=== PATIENT | male | born 1930 | race Caucasian/White ===

== ENCOUNTER 2017-02-12 13:28 | Emergency (ER) | payer MEDICARE, OTHER ==
[2017-02-12 13:33] VITALS: TEMP 98.3
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
--- NOTE | 2017-02-12 14:57 | XR ---
EXAMINATION TYPE: XR abdomen 2V DATE OF EXAM: 04/29/2015 COMPARISON: NONE HISTORY: Constipation TECHNIQUE: One view abdominal series FINDINGS: The osseous structures are intact. The bowel gas pattern is nonspecific. Diffuse osteopenia with hyp ertrophic changes noted. Correlate for diffuse idiopathic skeletal hyperostosis. Ankylosing spondylit is less likely. Subsegmental infiltrate at both lung bases. Arthropathy of the hips with evidence of vascular calcifications. IMPRESSION: 1. Nonspecific abdomen. 2. Bilateral lower lobe atelectasis or infiltrate. 3. Retained fecal debris throughout the colon.
[2017-02-12] MEDS ORDERED: MAGNESIUM CITRATE 296 ML BOTTLE PO ONE (17:34)
[2017-02-12 17:55] VITALS: BP 154/87; PULSE 78; RESP 18
== END 2017-02-12 17:55 | disposition home or self-care (01) ==
LOC: EC 13:28
DX: K59.00 Constipation, unspecified (principal); I11.0 Hypertensive heart disease with heart failure; I50.9 Heart failure, unspecified; N40.0 Benign prostatic hyperplasia without lower urinary tract symptoms; F32.9 Major depressive disorder, single episode, unspecified; Z85.828 Personal history of other malignant neoplasm of skin; Z79.899 Other long term (current) drug therapy; Z88.2 Allergy status to sulfonamides
CPT/HCPCS: 74020; 99284

== ENCOUNTER 2017-02-18 07:07 | Emergency (ER) | payer MEDICARE, OTHER ==
[2017-02-18 07:14] VITALS: PULSE 61
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
[2017-02-18 09:54] LABS: Particle Count 19780; RBC,Urine >182 /hpf (0-5); WBC,Urine >182 /hpf (0-5)
[2017-02-18 09:55] LABS: Appearance,Urine Bloody (Clear); UA Billing (MACRO vs. MICRO) MICRO
--- NOTE | 2017-02-18 10:04 | XR ---
Abdomen HISTORY: Constipation, unable to urinate Frontal view of the abdomen on 2 images correlated to prior dated 04/29/2015 Lung bases are clear. No pneumoperitoneum or bowel obstruction. Bones are stable. No pathologic calci fication. IMPRESSION: No acute abnormalities evident.
[2017-02-18] MEDS ORDERED: cefTRIAXone 1,000 MG VIAL (IM USE) IM STA (10:54)
[2017-02-18 11:36] LABS: Glucose,Whole Blood 106 mg/dL (75-99)
[2017-02-18 11:53] VITALS: BP 168/77; RESP 16; TEMP 97.2
== END 2017-02-18 12:04 | disposition home or self-care (01) ==
LOC: EC 07:07
DX: R33.9 Retention of urine, unspecified (principal); I11.0 Hypertensive heart disease with heart failure; I50.9 Heart failure, unspecified; Z85.828 Personal history of other malignant neoplasm of skin; Z86.73 Personal history of transient ischemic attack (TIA), and cerebral infarction without residual deficits; Z79.899 Other long term (current) drug therapy; Z88.2 Allergy status to sulfonamides
CPT/HCPCS: 36415; 81001; 74000; 99284; 51798; 51702; 96372; J0696

== ENCOUNTER 2017-02-19 06:04 | Emergency (ER) | payer MEDICARE, OTHER ==
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
[2017-02-19 07:17] LABS: Amorphous Sediment,Urine Rare /hpf; Appearance,Urine Turbid (Clear); Bacteria,Urine Occasional /hpf; Bilirubin,Urine Negative (Negative); Glucose,Urine (UA) Negative (Negative); Ketones,Urine Negative (Negative); Leukocyte Esterase,Urine Moderate (Negative); Mucus,Urine Few /hpf; Nitrite,Urine Negative (Negative); PH, Urine 5.5 (5.0-8.0); Particle Count 31464; Protein,Urine 1+ (Negative); RBC,Urine 181 /hpf (0-5); Specific Gravity,Urine 1.008 (1.001-1.035); UA Billing (MACRO vs. MICRO) MICRO; Urobilinogen,Urine <2.0 mg/dL (<2.0); WBC,Urine 43 /hpf (0-5)
[2017-02-19 07:35] VITALS: BP 143/67; PULSE 56; RESP 16; TEMP 97.8
== END 2017-02-19 07:34 | disposition home or self-care (01) ==
LOC: EC 06:04
DX: T83.091A Other mechanical complication of indwelling urethral catheter, initial encounter (principal); R33.9 Retention of urine, unspecified; N42.9 Disorder of prostate, unspecified; I11.0 Hypertensive heart disease with heart failure; I50.9 Heart failure, unspecified; Z86.73 Personal history of transient ischemic attack (TIA), and cerebral infarction without residual deficits; Z88.2 Allergy status to sulfonamides; Z79.899 Other long term (current) drug therapy
CPT/HCPCS: 81001; 87086; 99284

== ENCOUNTER 2017-02-21 04:37 | Emergency (ER) | payer MEDICARE, OTHER ==
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
[2017-02-21] MEDS ORDERED: GLYCERIN ADULT SUPPOSITORY 1 EACH RECTAL STA (06:45)
[2017-02-21] MEDS ORDERED: SENNOSIDES-DOCUSATE SODIUM 1 EACH TAB PO STA (06:45)
[2017-02-21] MEDS ORDERED: MAGNESIUM CITRATE 296 ML BOTTLE PO ONE (06:45)
--- NOTE | 2017-02-21 07:03 | XR ---
EXAM: XR Abdomen, 1 View CLINICAL HISTORY: Abdominal pain. TECHNIQUE: Frontal supine view of the abdomen/pelvis. Total images: 2. COMPARISON: Abdominal radiograph dated 02/18/17. FINDINGS: Limitations: The right side of the abdomen is incompletely imaged. Gastrointestinal tract: Nonobstructive bowel gas pattern. Bones/joints: Decreased osseous mineralization. Degenerative changes of the thoracolumbar spine with question of ankylosis. Soft tissues: Vascular calcifications. No unexpected calcification. IMPRESSION: Nonobstructive bowel gas pattern.
[2017-02-21 07:51] VITALS: TEMP 97
[2017-02-21 09:39] VITALS: BP 140/70; PULSE 72; RESP 16
== END 2017-02-21 09:37 | disposition home or self-care (01) ==
LOC: EC 04:37
DX: T83.89XA Other specified complication of genitourinary prosthetic devices, implants and grafts, initial encounter (principal); R10.9 Unspecified abdominal pain; I10 Essential (primary) hypertension; Z79.899 Other long term (current) drug therapy; Z88.2 Allergy status to sulfonamides; Z85.828 Personal history of other malignant neoplasm of skin; Y84.6 Urinary catheterization as the cause of abnormal reaction of the patient, or of later complication, without mention of misadventure at the time of the procedure
CPT/HCPCS: 51798; 74000; 99285

== ENCOUNTER 2017-02-22 06:29 | Emergency (ER) | payer MEDICARE, OTHER ==
[2017-02-22 06:34] VITALS: RESP 18
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
[2017-02-22 09:06] VITALS: BP 134/68; PULSE 57; TEMP 97.4
== END 2017-02-22 08:35 | disposition home or self-care (01) ==
LOC: EC 06:29
DX: T83.89XA Other specified complication of genitourinary prosthetic devices, implants and grafts, initial encounter (principal); I50.9 Heart failure, unspecified; I10 Essential (primary) hypertension; N42.9 Disorder of prostate, unspecified; Z79.899 Other long term (current) drug therapy; Z88.2 Allergy status to sulfonamides; Z87.440 Personal history of urinary (tract) infections; Y84.6 Urinary catheterization as the cause of abnormal reaction of the patient, or of later complication, without mention of misadventure at the time of the procedure
CPT/HCPCS: 51702; 51798; 99284

== ENCOUNTER 2017-03-02 14:06 | Observation (INO) | payer MEDICARE, OTHER ==
[2017-03-02] MEDS ORDERED: SODIUM CHLORIDE 0.9% 1,000 ML IV STA (14:17)
[2017-03-02] MEDS ORDERED: MORPHINE SULFATE 2 MG/ML SYRINGE IVP STA (14:17)
[2017-03-02] MEDS ORDERED: NITROGLYCERIN OINT 1 INCH/GM PACKET TOPICAL STA (14:17)
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
[2017-03-02 14:35] LABS: Basophils # (A) 0.1 k/uL (0-0.2); Basophils % (A) 1 %; CH 29.4; CHCM 33.7; Eosinophils # (A) 0.3 k/uL (0-0.7); Eosinophils % (A) 3 %; HCT 44.6 % (39.0-53.0); HDW 3.19; HGB 14.7 gm/dL (13.0-17.5); Luc # (Auto) 0.15; Luc % (Auto) 1; Lymphocytes # (A) 1.5 k/uL (1.0-4.8); Lymphocytes % (A) 12 %; MCH 28.9 pg (25.0-35.0); MCHC 32.9 g/dL (31.0-37.0); MCV 87.8 fL (80.0-100.0); Mean Platelet Volume 7.2; Monocytes # (A) 0.5 k/uL (0-1.0); Monocytes % (A) 4 %; Neutrophils # (A) 10.2 k/uL (1.3-7.7); Neutrophils % (A) 80 %; RBC 5.08 m/uL (4.30-5.90); RDW 14.2 % (11.5-15.5); WBC 12.7 k/uL (3.8-10.6); WBC (Perox) 12.13
[2017-03-02 14:44] LABS: INR 1.1 (<1.1); Partial Thromboplastin Time 29.4 sec (22.0-30.0); Prothrombin Time 10.7 sec (9.0-12.0)
[2017-03-02 14:49] LABS: ALT 27 U/L (21-72); AST 25 U/L (17-59); Alkaline Phosphatase 99 U/L (38-126); Anion Gap 10 mmol/L; Blood Urea Nitrogen 24 mg/dL (9-20); Calcium 9.1 mg/dL (8.4-10.2); Carbon Dioxide 26 mmol/L (22-30); Chloride 103 mmol/L (98-107); Glucose 109 mg/dL (74-99); Magnesium 2.2 mg/dL (1.6-2.3); Non-African American GFR(MDRD) >60 (>60 ml/min/1.73 sqM); Potassium 3.7 mmol/L (3.5-5.1); Sodium 139 mmol/L (137-145); Total Bilirubin 0.7 mg/dL (0.2-1.3); Total Protein 6.5 g/dL (6.3-8.2)
[2017-03-02 14:55] LABS: Creatine Kinase 28 U/L (55-170)
[2017-03-02 15:08] LABS: Creatine Kinase MB 0.7 ng/mL (0.0-2.4); Troponin I <0.012 ng/mL (0.000-0.034)
--- NOTE | 2017-03-02 15:48 | XR ---
EXAMINATION TYPE: XR chest 2V DATE OF EXAM: 03/02/2017 COMPARISON: Chest x-ray April 29, 2015 HISTORY: Chest pain TECHNIQUE: Frontal and lateral views of the chest are obtained. FINDINGS: Low lung volumes are present. There is patchy bibasilar atelectasis and/or infiltrate. Upp er lungs are clear without pneumothorax. No pleural effusion is present bilaterally. The cardiac silh ouette size is mildly enlarged with atherosclerotic thoracic aorta. The osseous structures are kamilah neralized. IMPRESSION: Low lung volumes and mild cardiomegaly with patchy bibasilar atelectasis and/or infiltra marcel.
[2017-03-02] MEDS ORDERED: MORPHINE SULFATE 2 MG/ML SYRINGE IVP PRN (18:00)
[2017-03-02] MEDS ORDERED: SODIUM CHLORIDE 0.9% 1,000 ML IV SCH (18:00)
[2017-03-02] MEDS ORDERED: NITROGLYCERIN SL TABS 0.4 MG TAB SUBLINGUAL PRN (18:00)
[2017-03-02] MEDS ORDERED: ALPRAZolam 0.25 MG TAB PO PRN (18:04)
[2017-03-02] MEDS ORDERED: POTASSIUM CHLORIDE ER 20 MEQ TAB.ER PO SCH (19:00)
[2017-03-02] MEDS ORDERED: LEVOFLOXACIN 500 MG TAB PO SCH (19:00)
[2017-03-02 20:08] LABS: Glucose,Whole Blood 136 mg/dL (75-99)
[2017-03-02 20:32] LABS: Creatine Kinase <20 U/L (55-170)
[2017-03-02 20:42] LABS: Creatine Kinase MB 0.7 ng/mL (0.0-2.4); Troponin I <0.012 ng/mL (0.000-0.034)
[2017-03-02] MEDS: CALCIUM POLYCARBOPHIL 625 MG TAB PO SCH (20:51)
[2017-03-02] MEDS: DOXAZOSIN 2 MG TAB PO SCH (20:51)
[2017-03-02] MEDS ORDERED: predniSONE 1 MG TAB PO SCH (21:00)
[2017-03-02] MEDS: ACETAMINOPHEN TAB 325 MG TAB PO PRN (22:04)
[2017-03-03] MEDS: ACETAMINOPHEN TAB 325 MG TAB PO PRN (01:23)
[2017-03-03 03:29] LABS: Cholesterol 173 mg/dL (<200); HDL Cholesterol 34 mg/dL (40-60); Triglycerides 143 mg/dL (<150)
[2017-03-03 03:59] LABS: Creatine Kinase MB 0.8 ng/mL (0.0-2.4); Troponin I 0.02 ng/mL (0.000-0.034)
[2017-03-03 06:35] LABS: Glucose,Whole Blood 94 mg/dL (75-99)
[2017-03-03 07:59] VITALS: RESP 16
[2017-03-03] MEDS ORDERED: ATORVASTATIN 20 MG TAB PO SCH (09:00)
[2017-03-03] MEDS ORDERED: ASPIRIN 325 MG TAB PO SCH (09:00)
[2017-03-03] MEDS ORDERED: FUROSEMIDE 40 MG TAB PO SCH (09:00)
[2017-03-03] MEDS ORDERED: SERTRALINE 50 MG TAB PO SCH (09:00)
[2017-03-03] MEDS ORDERED: DOCUSATE 100 MG CAP PO SCH (09:00)
[2017-03-03] MEDS: CALCIUM POLYCARBOPHIL 625 MG TAB PO SCH (10:07)
[2017-03-03] MEDS: DOXAZOSIN 2 MG TAB PO SCH (10:07)
[2017-03-03] MEDS ORDERED: ENOXAPARIN 100 MG/ML SYRINGE SQ STA (10:34)
[2017-03-03] MEDS ORDERED: LACTULOSE 20 GM/30 ML CUP PO ONE (10:35)
[2017-03-03 12:01] VITALS: BP 129/64; PULSE 73; TEMP 97.9
[2017-03-03] MEDS ORDERED: POLYETHYLENE GLYCOL 3350 17 GM POWD.PACK PO STA (14:21)
--- NOTE | 2017-03-03 15:54 | CONS ---
DATE OF CONSULTATION: Cristofer Hines is an 86-year-old elderly gentleman who sees Dr. Aguilar in the outpatient setting, has a history of hypertension, obstructive uropathy with enlarged prostate being considered for prostate operation. This gentleman also has some diastolic dysfunction. There was a question of TIA in the past and syncope and has had a loop recorder as well and the loop recorder did not reveal any significant issues upon recent interrogation. He had ejection fraction that runs in the range of 50% to 55% and has underlying mild to moderate stable aortic stenosis. He came into the hospital with what appears to be discomfort in the chest which he described as a sensation of a sharp feeling that came and went and lasted a few seconds every time and has a total duration of 20 minutes or so. There was no radiation. No associated nausea. He also felt some palpitations. The EMS people when they went to bring him thought there was some atrial fib but there is no documentation of this. His symptoms have resolved. He is resting comfortably. He denies any symptoms of chest pain at this time. His troponins are normal. The quality of the pain seems atypical. It is unclear if he had a previous stress test or not. The patient is not a very reliable historian. He has history of hypertension, hyperlipidemia, obstructive uropathy being considered for a prostate surgery, sleep apnea and uses a CPAP machine. At the time of my evaluation, he is resting comfortably. Denies any chest discomfort to suggest angina. Medications at home include: 1. Lasix 40 mg daily. 2. Nifedipine extended release 60 mg daily. 3. Potassium supplements. 4. He takes prednisone for reasons that are unclear 5. Xanax. 6. Cardura 4 mg daily. HE IS ALLERGIC TO SULFA AND BACTRIM. On examination, his blood pressure is 140/70, pulse rate is about 60 per minute. HEENT: Unremarkable. Fundus was not examined by me. Neck is supple. There is JVD of at least 1 cm, no carotid bruit. Heart exam reveals S1, S2 with an ejection systolic murmur and second heart sound is fairly well preserved. Lungs reveal bilateral diminished air entry over bases. ABDOMEN: Soft, nontender. Lower extremities reveal diminished pulses. The patient has a Looney catheter. EKG revealed sinus mechanism. No evidence of acute changes. Leftward axis, nonspecific ST abnormality. Laboratory data revealed unremarkable troponins. IMPRESSION: 1. Atypical chest pain. Does not seem to be angina. Quality of pain is atypical, but CAD in the patient at this age, cannot be totally excluded. His troponin levels are normal. EKG is unremarkable for acute changes. 2. History of benign prostatic hypertrophy, details unclear. May have prostate cancer but the patient is not able to confirm ( ). 3. Hypertension. 4. History of hyperlipidemia. 5. Remote history of atrial fibrillation or cerebrovascular accident. 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 RECOMMENDATIONS: I am recommending that we obtain a d-dimer and if the d-dimer is normal and he has no further symptoms upon ambulation, he can be discharged and have a stress test as an outpatient. I am also recommending that we supplement the potassium. I will give a single dose of Lovenox while we are waiting for the d-dimer to come back. Thank you very much for the consult.
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
[2017-03-04] MEDS ORDERED: HEPARIN SODIUM,PORCINE 5,000 UNIT/ML 1 ML VIAL SQ SCH (09:00)
== END 2017-03-03 16:15 | disposition home or self-care (01) ==
LOC: EC 14:06 → 3OBS 18:00
PROVIDERS: ADMIT Family Medicine; ATTEND Family Medicine
DX: R07.89 Other chest pain (principal); I25.10 Atherosclerotic heart disease of native coronary artery without angina pectoris; I50.9 Heart failure, unspecified; I11.0 Hypertensive heart disease with heart failure; E78.5 Hyperlipidemia, unspecified; I48.91 Unspecified atrial fibrillation; Z86.73 Personal history of transient ischemic attack (TIA), and cerebral infarction without residual deficits; Z79.899 Other long term (current) drug therapy; Z79.52 Long term (current) use of systemic steroids; Z88.2 Allergy status to sulfonamides; G47.30 Sleep apnea, unspecified; Z99.89 Dependence on other enabling machines and devices; Z87.01 Personal history of pneumonia (recurrent); Z85.828 Personal history of other malignant neoplasm of skin; F32.9 Major depressive disorder, single episode, unspecified; G47.33 Obstructive sleep apnea (adult) (pediatric); N40.1 Benign prostatic hyperplasia with lower urinary tract symptoms; R33.8 Other retention of urine; K59.00 Constipation, unspecified
CPT/HCPCS: 99285; 96372; 36415; 93005; 85379; 83880; 80061; 80053; 82550 ×2; 82553 ×2; 83735; 84484 ×2; 85025; 85610; 85730; 71020; G0378 ×2; J1650; J7512

== ENCOUNTER → 2017-10-08 | Outpatient (CLI) | payer MEDICARE, OTHER ==
--- NOTE | 2017-10-08 18:12 | CONS ---
CONSULTATION REASON FOR CONSULTATION: Sleep apnea. This is an 87-year-old male patient with known history of dementia and previous history of CVA back in 2016. He is coming in upon the request of his neurologist, Dr. Hall, to make sure his FAUZIA is also adequately treated. The patient was diagnosed and treated for obstructive sleep apnea through the sleep center at [facility]. His CPAP machine was offered to him last year and he has been very compliant. He does not have his CPAP machine with him today. I do not have any previous records on his earlier sleep studies and the exact diagnostic circumstances of his obstructive sleep apnea. At any rate, the patient is using a full-face mask and he has been compliant. No snoring while on the CPAP machine, and he has been averaging more than 6 hours of CPAP use every night, according to his daughter. He does not snore. He is going to bed around 10 p.m., waking up between 6 and 7 a.m. in the morning. For the most part, he is a poor historian related to his dementia. PAST MEDICAL HISTORY: 1. CVA. 2. Impaired vision. 3. Obstructive sleep apnea. 4. Dementia. 5. BPH. 6. Hypertension. 7. Anxiety. 8. Depression. SURGICAL HISTORY: TURP. MEDICATION LIST: Please see the attached medication list. SOCIAL HISTORY: No history of alcoholism. No history of IV drugs. He is a nonsmoker. He works for [employer]. FAMILY HISTORY: Negative for obstructive sleep apnea. REVIEW OF SYSTEMS: Twelve-point review of systems was done. All provided history is poor. There is underlying dementia. He does not drive. He walks with the help of a walker. He wakes up a few times in the middle of the night to urinate. No major hypersomnia or sleepiness during the day. He does not take any naps. PHYSICAL EXAMINATION: BP is 147/56, pulse 56, respirations 16, temperature 97.6, saturation 94% on room air. Neck size is 17 inches. Height is 5 feet 5 inches. Weight is 212. BMI 35.2. GENERAL APPEARANCE: Calm, comfortable. No acute distress. Head is atraumatic, normocephalic. Neck is short, supple. There is no goiter or neck masses. Mallampati class IV. LUNGS: Clear to auscultation. HEART: Regular rate and rhythm. Normal S1, S2. No S3, S4. No murmurs. ABDOMEN: Soft, nontender. No organomegaly. EXTREMITIES: No edema. No cyanosis or clubbing. NEUROLOGIC: Alert and oriented x3. No focal neurological deficits. PSYCHIATRIC: No anxiety or depression. IMPRESSION: 1. Obstructive sleep apnea, currently undergoing CPAP treatment. 2. Cerebrovascular accident. 3. Dementia. 4. Benign prostatic hypertrophy. 5. Hypertension. 6. Anxiety/depression. PLAN: 1. Will obtain records of his previous PSG and CPAP titration. 2. The patient's daughter will bring to me the CPAP machine for a compliancy check tomorrow in my office. 3. Continue the treatment, as the patient's treatment has been successful for now without any major hypersomnia or sleepiness. I will review all the documents and get back to the family if further adjustments are needed. MMROMULO / IJN: [id number] /
== END | disposition home or self-care (01) ==
LOC: SLEEP 16:21
PROVIDERS: ATTEND Internal Medicine Critical Care Medicine
DX: G47.33 Obstructive sleep apnea (adult) (pediatric) (principal); N40.0 Benign prostatic hyperplasia without lower urinary tract symptoms; I63.9 Cerebral infarction, unspecified; F03.90 Unspecified dementia, unspecified severity, without behavioral disturbance, psychotic disturbance, mood disturbance, and anxiety; I10 Essential (primary) hypertension; F32.9 Major depressive disorder, single episode, unspecified; F41.9 Anxiety disorder, unspecified; Z99.89 Dependence on other enabling machines and devices
CPT/HCPCS: 99211

== ENCOUNTER → 2017-10-08 | Outpatient (CLI) | payer MEDICARE, OTHER ==
--- NOTE | 2017-10-08 18:32 | XR ---
EXAMINATION TYPE: XR lumbosacral spine min 4V DATE OF EXAM: 10/08/2017 COMPARISON: NONE HISTORY: Low back pain TECHNIQUE: 5 views FINDINGS: Lumbar vertebra have fairly normal alignment. There is extensive hypertrophic bridging oste ophyte formation throughout the lumbar spine. There is 10% anterior wedging of L1 vertebra that appea rs old. Abdominal aorta is atheromatous. Posterior elements are intact. Sacroiliac joints are intact. IMPRESSION: Multilevel spondylosis. No acute abnormality. No significant disc space narrowing.
== END | disposition home or self-care (01) ==
LOC: RADXRMAIN 17:42
PROVIDERS: ATTEND Psychiatry & Neurology Neurology
DX: M47.817 Spondylosis without myelopathy or radiculopathy, lumbosacral region (principal); R41.3 Other amnesia
CPT/HCPCS: 72110; 82306; 82607; 82747; 83036; 84443; 85652; 86618; 86780; 99204; 99211

== ENCOUNTER → 2017-11-16 | Outpatient (CLI) | payer MEDICARE, OTHER ==
--- NOTE | 2017-11-16 13:22 | CT ---
EXAMINATION TYPE: CT brain wo con DATE OF EXAM: 11/16/2017 HISTORY: Hydrocephalus Progress study. CT DLP: 1013 mGycm. Automated Exposure Control for Dose Reduction was Utilized. TECHNIQUE: CT scan of the head is performed without contrast. COMPARISON: CT scan of brain March 07, 2015 and older study February 28, 2015 FINDINGS: There is no acute intracranial hemorrhage or midline shift identified. There is diffuse v entricular and sulcal prominence consistent with diffuse age-related cerebral atrophy. There is low- attenuation in the periventricular white matter consistent with chronic small vessel ischemic change. Area of encephalomalacia inferior medial right occipital lobe is now present. Was more acute/subacut e on prior studies. The globes are intact and the visualized sinuses are clear. IMPRESSION: No acute intracranial hemorrhage or midline shift. There is fairly moderate diffuse age -related cerebral atrophy and chronic small vessel ischemic change identified with progression from [address] noted. No donya hydrocephalus in my opinion. Old infarct inferior medial right occipital lobe is now present.
== END | disposition home or self-care (01) ==
LOC: RADCTMAIN 11:00
PROVIDERS: ATTEND Psychiatry & Neurology Neurology
DX: G31.9 Degenerative disease of nervous system, unspecified (principal); I67.82 Cerebral ischemia; Z86.73 Personal history of transient ischemic attack (TIA), and cerebral infarction without residual deficits
CPT/HCPCS: 70450

== ENCOUNTER → 2017-11-26 | Outpatient (CLI) | payer MEDICARE, OTHER ==
--- NOTE | 2017-11-26 16:18 | PN ---
PROGRESS NOTE I was able to re-evaluate this patient in regard to obstructive sleep apnea. I saw him in consultation September 2017. Today comes in with his BiPAP machine. The patient has a ResMed VPAP RO machine which is set at a fixed pressure of 12 over 8. On today's evaluation. I noted the patient is having increased leaks around the mask. The patient is looking for another alternative mask. He uses an Gosia View full-face mask. Based on the compliance data, the patient has been able to achieve adequate number of hours and he is compliant and he is benefiting from the treatment. As such, I fitted him with an AirFit P F20, full face mask. He has no other complaints otherwise. He has appropriate setup machine and tubing. The mask will be changed however. He seems to be committed to the treatment knowing that he benefits from the treatment. He goes to bed around 10:00 pm, wakes up 7:00 am in the morning. He wakes up rather refreshed as long as he is able to tolerate the treatment. I am hoping that we can increase the amount of air leaks to improve tolerability and compliance. PHYSICAL EXAMINATION: BP is 112/57, pulse 64, respirations 16, temp 97.4, saturation 97% on room air. Weight is 311, height is 5 feet 5 inches. General appearance, calm and comfortable. Head is atraumatic, normocephalic. Neck is short, supple. Crowding posterior oropharynx. There is no goiter or neck masses. LUNGS: Clear to auscultation. HEART: Sounds are regular rate and rhythm. Normal S1, S2. No S3. No murmurs. ABDOMEN: Soft, nontender. No organomegaly. EXTREMITIES: No edema. No cyanosis or clubbing. NEUROLOGIC: He has got some tremors. He has got also some dementia underlying. PSYCHIATRIC: No anxiety or depression. SKIN: Negative for any wounds or ulceration. IMPRESSION: 1. Obstructive sleep apnea. Patient is currently on BiPAP at a pressure of 12/8. He has a VPAP RO machine. 2. Increased leak around the mask. 3. Cerebrovascular accident. 4. Dementia. 5. Benign prostatic hypertrophy. 6. Hypertension. 7. Anxiety. 8. Depression. PLAN: 1. Keep the same pressure setting. 2. Provide the patient AirFit F20 full face mask. 3. See me back in 6 weeks time for a compliancy check. Hopefully this will improve the leaks and improve his overall compliancy and successful treatment in general. 4. We will continue to follow. TANNER / SHONAN: [id number] /
== END | disposition home or self-care (01) ==
LOC: SLEEP 13:28
PROVIDERS: ATTEND Internal Medicine Critical Care Medicine
DX: G47.33 Obstructive sleep apnea (adult) (pediatric) (principal); I63.9 Cerebral infarction, unspecified; F03.90 Unspecified dementia, unspecified severity, without behavioral disturbance, psychotic disturbance, mood disturbance, and anxiety; N40.0 Benign prostatic hyperplasia without lower urinary tract symptoms; I10 Essential (primary) hypertension; F41.9 Anxiety disorder, unspecified; F32.9 Major depressive disorder, single episode, unspecified; Z99.89 Dependence on other enabling machines and devices

== ENCOUNTER 2017-12-03 00:43 | Emergency (ER) | payer MEDICARE, OTHER ==
[2017-12-03 01:24] VITALS: RESP 18
[2017-12-03] MEDS ORDERED: LIDOCAINE URO-JET JELLY 2% 5 ML KIT URETHRAL ONE (01:24)
--- NOTE | 2017-12-03 02:30 | ED ---
General Adult HPI - General Chief complaint: Urogenital Stated complaint: urine retention Time Seen by Provider: 12/03/17 00:54 Source: patient, EMS Mode of arrival: EMS Limitations: no limitations - History of Present Illness Initial comments: 87 years old male with his daughter main complaint is not able to void he had a TURP done numb back in February 2017 and he has been voiding well since then he denies any history of prostate cancer no radiation or chemo was his primary care for him on Flomax. But initially that was his complaint but now we sent he has a shortness of breath denies any chest pain is on oxygen is helping him he denies any pleuritic chest pain, no fever no chills no symptoms of TIA or CVA - Related Data Home Medications Medication Instructions Recorded Confirmed Furosemide [Lasix] 40 mg PO QAM 02/28/15 03/02/17 NIFEdipine [NIFEdipine ER] 60 mg PO QAM 02/28/15 03/02/17 Nitroglycerin Sl Tabs [Nitrostat] 0.4 mg SUBLINGUAL Q5M PRN 04/01/15 03/02/17 Potassium Chloride [Klor-Con 20] 20 meq PO PC-SUPPER 04/01/15 03/02/17 ALPRAZolam [Xanax] 0.25 mg PO QAM PRN 03/01/17 03/02/17 Fiber Tab 1 tab PO BID 03/01/17 03/02/17 Sertraline [Zoloft] 50 mg PO QAM 03/01/17 03/02/17 predniSONE 6 mg PO HS 03/01/17 03/02/17 Docusate [Colace] 100 mg PO DAILY 03/02/17 03/02/17 Previous Rx's Medication Instructions Recorded Doxazosin [Cardura] 2 mg PO BID #60 tab 04/06/15 Aspirin EC [Ecotrin Low Dose] 81 mg PO DAILY #30 tablet. 03/03/17 Atorvastatin [Lipitor] 10 mg PO DAILY #30 tab 03/03/17 Levofloxacin [Levaquin] 500 mg PO DAILY #7 tab 03/03/17 Polyethylene Glycol 3350 [Miralax] 17 gm PO DAILY PRN #10 packet 03/03/17 Allergies Allergy/AdvReac Type Severity Reaction Status Date / Time sulfamethoxazole AdvReac BLOOD Verified 12/03/17 01:21 [From Bactrim] SUGAR DROPPED trimethoprim [From Bactrim] AdvReac BLOOD Verified 12/03/17 01:21 SUGAR DROPPED Review of Systems ROS Statement: Those systems with pertinent positive or pertinent negative responses have been documented in the HPI. ROS Other: All systems not noted in ROS Statement are negative. Past Medical History Past Medical History: Cancer, Heart Failure, CVA/TIA, Hyperlipidemia, Hypertension, Pneumonia, Sleep Apnea/CPAP/BIPAP Additional Past Medical History / Comment(s): HYPOGLYCEMIA. skin cancer removed off penis. URINARY RETENTION/HALL CATH. BPH. History of Any Multi-Drug Resistant Organisms: None Reported Past Surgical History: No Surgical Hx Reported Additional Past Surgical History / Comment(s): 04/05/15 LOOP recorder placed, 2014 EGD, colonoscopy 2005 removed one polyp and is scheduled every 4 years, skin cancer removed. Past Anesthesia/Blood Transfusion Reactions: No Reported Reaction Past Psychological History: Depression Smoking Status: Never smoker Past Alcohol Use History: None Reported Past Drug Use History: None Reported - Past Family History Father Family Medical History: Cancer Additional Family Medical History / Comment(s): colon cancer and at age 92 Mother Family Medical History: CVA/TIA, Dementia, Diabetes Mellitus Additional Family Medical History / Comment(s): from complications of CVA at age 76 Brother(s) Family Medical History: Prostate Disorder Additional Family Medical History / Comment(s): 2 brothers had prostate cancer, 1 brother with colon cancer Sister(s) Family Medical History: Cancer Additional Family Medical History / Comment(s): He has 3 sisters. No major medical problems. Daughter(s) Family Medical History: Cancer Additional Family Medical History / Comment(s): COLON General Exam - General Exam Comments Initial Comments: General: The patient is awake and alert, in no distress, and does not appear acutely ill. Skin: Skin is warm and dry and no rashes or lesions are noted. Eye: Pupils are equal, round and reactive to light, extra-ocular movements are intact; there is normal conjunctiva bilaterally. Ears, nose, mouth and throat: There are moist mucous membranes and no oral lesions. Neck: The neck is supple, there is no tenderness or JVD. Cardiovascular: There is a regular rate and rhythm. No murmur, rub or gallop is appreciated. Respiratory: To auscultation bilateral, no wheezing no rhonchi no distress respiratory ricks noticed Gastrointestinal: Soft, non-distended, non-tender abdomen without masses or organomegaly noted. There is no rebound or guarding present. Bowel sounds are unremarkable. Back: There is no tenderness to palpation in the midline. There is no obvious deformity. Musculoskeletal: Normal ROM, no tenderness, There is no pedal edema. There is no calf tenderness or swelling. No cords were appreciated. Neurological: CN II-XII intact, Cranial nerves III through XII are intact. There are no obvious motor or sensory deficits. Coordination appears grossly intact. Speech is normal. Psychiatric: Cooperative, appropriate mood & affect, normal judgment. Limitations: no limitations Course Vital Signs 12/03/17 12/03/17 01:21 03:52 Temperature 97.9 F 97.9 F Pulse Rate 62 60 Respiratory 18 18 Rate Blood Pressure 152/71 162/72 O2 Sat by Pulse 96 96 Oximetry The patient came in with the urinary retention he complained about shortness of breath or cardiopulmonary workup was done, chest x-ray is fine no congestive heart failure his O2 sat room air stayed pretty stable his white count is normal his EKG was unremarkable troponin CBC and compressive metabolic panel are within normal range EKG Findings - EKG Comments: EKG Findings:: EKG is normal sinus rhythm ventricular rate is 64 TX interval is 198 QRS duration is 90 QT/QTc is 440/427, noticed T-wave inversion in lead [address] elevation or ST depression noticed Medical Decision Making - Lab Data Result diagrams: 12/03/17 03:10 12/03/17 03:10 Lab Results 12/03/17 12/03/17 12/03/17 Range/Units 03:10 03:10 03:10 WBC 11.9 H (3.8-10.6) k/uL RBC 5.45 (4.30-5.90) m/uL Hgb 15.6 (13.0-17.5) gm/dL Hct 46.8 (39.0-53.0) % MCV 85.9 (80.0-100.0) fL MCH 28.5 (25.0-35.0) pg MCHC 33.2 (31.0-37.0) g/dL RDW 14.2 (11.5-15.5) % Plt Count 203 (150-450) k/uL Neutrophils % 87 % Lymphocytes % 8 % Monocytes % 3 % Eosinophils % 1 % Basophils % 0 % Neutrophils # 10.4 H (1.3-7.7) k/uL Lymphocytes # 1.0 (1.0-4.8) k/uL Monocytes # 0.4 (0-1.0) k/uL Eosinophils # 0.1 (0-0.7) k/uL Basophils # 0.0 (0-0.2) k/uL PT (9.0-12.0) sec INR (<1.2) APTT (22.0-30.0) sec Sodium (137-145) mmol/L Potassium (3.5-5.1) mmol/L Chloride (98-107) mmol/L Carbon Dioxide (22-30) mmol/L Anion Gap mmol/L BUN (9-20) mg/dL Creatinine (0.66-1.25) mg/dL Est GFR (CKD-EPI)AfAm (>60 ml/min/1.73 sqM) Est GFR (CKD-EPI)NonAf (>60 ml/min/1.73 sqM) Glucose (74-99) mg/dL Calcium (8.4-10.2) mg/dL Total Bilirubin (0.2-1.3) mg/dL AST (17-59) U/L ALT (21-72) U/L Alkaline Phosphatase (38-126) U/L Total Creatine Kinase 37 L (55-170) U/L CK-MB (CK-2) 1.2 (0.0-2.4) ng/mL CK-MB (CK-2) Rel Index 3.2 Troponin I 0.017 (0.000-0.034) ng/mL Total Protein (6.3-8.2) g/dL Albumin (3.5-5.0) g/dL Urine Color Colorless Urine Appearance Clear (Clear) Urine pH 7.0 (5.0-8.0) Ur Specific Jackson 1.005 (1.001-1.035) Urine Protein Negative (Negative) Urine Glucose (UA) Negative (Negative) Urine Ketones Negative (Negative) Urine Blood Negative (Negative) Urine Nitrite Negative (Negative) Urine Bilirubin Negative (Negative) Urine Urobilinogen <2.0 (<2.0) mg/dL Ur Leukocyte Esterase Small H (Negative) Urine RBC 2 (0-5) /hpf Urine WBC 5 (0-5) /hpf Ur Squamous Epith Cells <1 (0-4) /hpf 12/03/17 12/03/17 Range/Units 03:10 03:10 WBC (3.8-10.6) k/uL RBC (4.30-5.90) m/uL Hgb (13.0-17.5) gm/dL Hct (39.0-53.0) % MCV (80.0-100.0) fL MCH (25.0-35.0) pg MCHC (31.0-37.0) g/dL RDW (11.5-15.5) % Plt Count (150-450) k/uL Neutrophils % % Lymphocytes % % Monocytes % % Eosinophils % % Basophils % % Neutrophils # (1.3-7.7) k/uL Lymphocytes # (1.0-4.8) k/uL Monocytes # (0-1.0) k/uL Eosinophils # (0-0.7) k/uL Basophils # (0-0.2) k/uL PT 9.8 (9.0-12.0) sec INR 1.0 (<1.2) APTT 27.5 (22.0-30.0) sec Sodium 141 (137-145) mmol/L Potassium 4.3 (3.5-5.1) mmol/L Chloride 100 (98-107) mmol/L Carbon Dioxide 31 H (22-30) mmol/L Anion Gap 10 mmol/L BUN 25 H (9-20) mg/dL Creatinine 0.80 (0.66-1.25) mg/dL Est GFR (CKD-EPI)AfAm >90 (>60 ml/min/1.73 sqM) Est GFR (CKD-EPI)NonAf 80 (>60 ml/min/1.73 sqM) Glucose 124 H (74-99) mg/dL Calcium 9.8 (8.4-10.2) mg/dL Total Bilirubin 0.7 (0.2-1.3) mg/dL AST 24 (17-59) U/L ALT 28 (21-72) U/L Alkaline Phosphatase 104 (38-126) U/L Total Creatine Kinase (55-170) U/L CK-MB (CK-2) (0.0-2.4) ng/mL CK-MB (CK-2) Rel Index Troponin I (0.000-0.034) ng/mL Total Protein 6.9 (6.3-8.2) g/dL Albumin 4.2 (3.5-5.0) g/dL Urine Color Urine Appearance (Clear) Urine pH (5.0-8.0) Ur Specific Jackson (1.001-1.035) Urine Protein (Negative) Urine Glucose (UA) (Negative) Urine Ketones (Negative) Urine Blood (Negative) Urine Nitrite (Negative) Urine Bilirubin (Negative) Urine Urobilinogen (<2.0) mg/dL Ur Leukocyte Esterase (Negative) Urine RBC (0-5) /hpf Urine WBC (0-5) /hpf Ur Squamous Epith Cells (0-4) /hpf Disposition Clinical Impression: Urine retention, Shortness of breath Disposition: HOME SELF-CARE Condition: Good Instructions: Urinary Retention in Men (ED) Additional Instructions: His daughter stated that he sees his urologist but he frequently, he will follow up with his urologist, daughter is quite familiar with that Referrals: Peyman Martins DO [Primary Care Provider] - 1-2 days
[2017-12-03 03:31] LABS: Basophils % (A) 0 %; Eosinophils # (A) 0.1 k/uL (0-0.7); Eosinophils % (A) 1 %; HCT 46.8 % (39.0-53.0); HGB 15.6 gm/dL (13.0-17.5); Lymphocytes % (A) 8 %; MCH 28.5 pg (25.0-35.0); MCHC 33.2 g/dL (31.0-37.0); MCV 85.9 fL (80.0-100.0); Mean Platelet Volume 7.5; Monocytes # (A) 0.4 k/uL (0-1.0); Monocytes % (A) 3 %; Neutrophils # (A) 10.4 k/uL (1.3-7.7); Neutrophils % (A) 87 %; Platelet Count 203 k/uL (150-450); RBC 5.45 m/uL (4.30-5.90); RDW 14.2 % (11.5-15.5); WBC 11.9 k/uL (3.8-10.6)
[2017-12-03 03:44] LABS: ALT 28 U/L (21-72); AST 24 U/L (17-59); Albumin 4.2 g/dL (3.5-5.0); Alkaline Phosphatase 104 U/L (38-126); Anion Gap 10 mmol/L; Blood Urea Nitrogen 25 mg/dL (9-20); Calcium 9.8 mg/dL (8.4-10.2); Carbon Dioxide 31 mmol/L (22-30); Chloride 100 mmol/L (98-107); Glucose 124 mg/dL (74-99); Potassium 4.3 mmol/L (3.5-5.1); Sodium 141 mmol/L (137-145); Total Bilirubin 0.7 mg/dL (0.2-1.3); Total Protein 6.9 g/dL (6.3-8.2)
[2017-12-03 03:50] LABS: Partial Thromboplastin Time 27.5 sec (22.0-30.0); Prothrombin Time 9.8 sec (9.0-12.0)
[2017-12-03 03:52] LABS: Appearance,Urine Clear (Clear); Bilirubin,Urine Negative (Negative); Blood,Urine Negative (Negative); Color,Urine Colorless; Glucose,Urine (UA) Negative (Negative); Ketones,Urine Negative (Negative); Leukocyte Esterase,Urine Small (Negative); Nitrite,Urine Negative (Negative); Protein,Urine Negative (Negative); RBC,Urine 2 /hpf (0-5); Specific Gravity,Urine 1.005 (1.001-1.035); Squamous Epithelial Cell,Urine <1 /hpf (0-4); Urobilinogen,Urine <2.0 mg/dL (<2.0); WBC,Urine 5 /hpf (0-5)
[2017-12-03 03:56] LABS: Creatine Kinase MB 1.2 ng/mL (0.0-2.4); Troponin I 0.017 ng/mL (0.000-0.034)
--- NOTE | 2017-12-03 04:36 | XR ---
EXAM: XR Chest, 2 Views CLINICAL HISTORY: ITS.REASON XR Reason: difficulty breathing TECHNIQUE: Frontal and lateral views of the chest. COMPARISON: 03/02/2017 FINDINGS: Lungs: Low lung volume. Flattening of the diaphragm and component of chronic interstitial thickening. No airspace consolidation. Mild basilar atelectasis. Pleural space: Unremarkable. No pneumothorax. Heart: Borderline cardiomegaly. Mediastinum: Unremarkable. Bones/joints: Degenerative changes to the acromioclavicular joints. Vasculature: Atherosclerosis. Tubes, lines and devices: Loop recorder noted overlying the left chest. IMPRESSION: 1. No acute radiographic findings. 2. COPD. 3. Stable borderline cardiomegaly.
[2017-12-03 05:15] VITALS: BP 154/70; PULSE 63; TEMP 97.8
== END 2017-12-03 05:14 | disposition home or self-care (01) ==
LOC: EC 00:43
DX: R33.9 Retention of urine, unspecified (principal); R06.02 Shortness of breath; I11.0 Hypertensive heart disease with heart failure; I50.9 Heart failure, unspecified; G47.30 Sleep apnea, unspecified; Z99.89 Dependence on other enabling machines and devices; Z85.828 Personal history of other malignant neoplasm of skin; Z79.52 Long term (current) use of systemic steroids; Z79.899 Other long term (current) drug therapy
CPT/HCPCS: 36415; 51702; 51798; 71046; 80053; 81001; 82550; 82553; 84484; 85025; 85610; 85730; 93005; 99284

== ENCOUNTER 2017-12-03 07:25 | Emergency (ER) | payer MEDICARE, OTHER ==
[2017-12-03 07:31] VITALS: RESP 18
[2017-12-03] MEDS ORDERED: RX INFO: IV CONTRAST WAS GIVEN 1 EACH MISC MISCELLANE PRN (08:29)
[2017-12-03] MEDS ORDERED: SODIUM CHLORIDE 0.9% 1,000 ML IV ONE (08:29)
[2017-12-03] MEDS ORDERED: PHENAZOPYRIDINE 200 MG TAB PO STA (08:35)
--- NOTE | 2017-12-03 08:50 | ED ---
Male Urogenital HPI - General Chief complaint: Urogenital Stated complaint: Catheter clogged Time Seen by Provider: 12/03/17 07:31 Source: patient, family, RN notes reviewed Mode of arrival: wheelchair Limitations: no limitations - History of Present Illness Initial comments: 87-year-old male presents emergency Department chief complaint of fall and catheter not draining. Patient complains of pain over his bladder. Patient states that he is in here just a few hours ago because he cannot urinate and states that he had a Hall catheter placed and states it was draining felt well. Patient states that symptoms are returning and worsening. Patient states that he noticed that there was not any urine in the bag. Patient states that he had a TURP procedure by Dr. geronimo in February 2017. Patient states he had a Hall prior to this and after for several weeks. Daughter did add that he had to have several different Hall secondary to blood clots. Patient denies any nausea vomiting diarrhea constipation. Denies any known fevers or chills. - Related Data Home Medications Medication Instructions Recorded Confirmed Furosemide [Lasix] 40 mg PO QAM 02/28/15 03/02/17 NIFEdipine [NIFEdipine ER] 60 mg PO QAM 02/28/15 03/02/17 Nitroglycerin Sl Tabs [Nitrostat] 0.4 mg SUBLINGUAL Q5M PRN 04/01/15 03/02/17 Potassium Chloride [Klor-Con 20] 20 meq PO PC-SUPPER 04/01/15 03/02/17 ALPRAZolam [Xanax] 0.25 mg PO QAM PRN 03/01/17 03/02/17 Fiber Tab 1 tab PO BID 03/01/17 03/02/17 Sertraline [Zoloft] 50 mg PO QAM 03/01/17 03/02/17 predniSONE 6 mg PO HS 03/01/17 03/02/17 Docusate [Colace] 100 mg PO DAILY 03/02/17 03/02/17 Previous Rx's Medication Instructions Recorded Doxazosin [Cardura] 2 mg PO BID #60 tab 04/06/15 Aspirin EC [Ecotrin Low Dose] 81 mg PO DAILY #30 tablet. 03/03/17 Atorvastatin [Lipitor] 10 mg PO DAILY #30 tab 03/03/17 Levofloxacin [Levaquin] 500 mg PO DAILY #7 tab 03/03/17 Polyethylene Glycol 3350 [Miralax] 17 gm PO DAILY PRN #10 packet 03/03/17 Hydrocodone/Acetaminophen [[place] 1 tab PO Q6HR PRN #15 tab 12/03/17 5-325] Allergies Allergy/AdvReac Type Severity Reaction Status Date / Time sulfamethoxazole AdvReac BLOOD Verified 12/03/17 09:26 [From Bactrim] SUGAR DROPPED trimethoprim [From Bactrim] AdvReac BLOOD Verified 12/03/17 09:26 SUGAR DROPPED Review of Systems ROS Statement: Those systems with pertinent positive or pertinent negative responses have been documented in the HPI. ROS Other: All systems not noted in ROS Statement are negative. Past Medical History Past Medical History: Cancer, Heart Failure, CVA/TIA, Hyperlipidemia, Hypertension, Pneumonia, Sleep Apnea/CPAP/BIPAP Additional Past Medical History / Comment(s): HYPOGLYCEMIA. skin cancer removed off penis. URINARY RETENTION/HALL CATH. BPH. History of Any Multi-Drug Resistant Organisms: None Reported Past Surgical History: No Surgical Hx Reported Additional Past Surgical History / Comment(s): 04/05/15 LOOP recorder placed, 2014 EGD, colonoscopy 2005 removed one polyp and is scheduled every 4 years, skin cancer removed. Past Anesthesia/Blood Transfusion Reactions: No Reported Reaction Past Psychological History: Depression Smoking Status: Never smoker Past Alcohol Use History: None Reported Past Drug Use History: None Reported - Past Family History Father Family Medical History: Cancer Additional Family Medical History / Comment(s): colon cancer and at age 92 Mother Family Medical History: CVA/TIA, Dementia, Diabetes Mellitus Additional Family Medical History / Comment(s): from complications of CVA at age 76 Brother(s) Family Medical History: Prostate Disorder Additional Family Medical History / Comment(s): 2 brothers had prostate cancer, 1 brother with colon cancer Sister(s) Family Medical History: Cancer Additional Family Medical History / Comment(s): He has 3 sisters. No major medical problems. Daughter(s) Family Medical History: Cancer Additional Family Medical History / Comment(s): COLON General Exam Limitations: no limitations General appearance: alert, in no apparent distress Neck exam: Present: normal inspection, full ROM. Absent: tenderness, meningismus, lymphadenopathy Respiratory exam: Present: normal lung sounds bilaterally. Absent: respiratory distress, wheezes, rales, rhonchi, stridor Cardiovascular Exam: Present: regular rate, normal rhythm, normal heart sounds. Absent: systolic murmur, diastolic murmur, rubs, gallop, clicks GI/Abdominal exam: Present: soft, normal bowel sounds. Absent: distended, tenderness, guarding, rebound, rigid exam: Present: normal inspection (Hall catheter in place only a small amount of blood in the catheter noted) Course Vital Signs 12/03/17 07:28 Temperature 97.6 F Pulse Rate 75 Respiratory 18 Rate Blood Pressure 149/70 O2 Sat by Pulse 97 Oximetry - Reevaluation(s) Reevaluation #1: 12/03/17 08:49 Catheter was attempted to be flushed no relief of symptoms. New catheter was placed there is a small amount of urine there was no significant amount of urine noted on bladder scan Medical Decision Making - Medical Decision Making 79-year-old male present emergency from for bladder pain possible Hall catheter issues. Patient had a Hall catheter exchange no relief the symptoms. CAT scan was performed at this time which showed decompression of the bladder by her had Hall balloon within the correct position. Patient's Hall is draining he has no symptoms at this time. We discussed this may be related to bladder spasms. He was offered suppositories but he declines. Patient be given pain medication if symptoms return. Disposition Clinical Impression: Bladder spasms, Abdominal pain, Urine retention Disposition: HOME SELF-CARE Condition: Stable Instructions: Hall Catheter Placement and Care (ED) Additional Instructions: Please return to the Emergency Department if symptoms worsen or any other concerns. Prescriptions: Hydrocodone/Acetaminophen [Sal[place] 5-325] 1 tab PO Q6HR PRN #15 tab PRN Reason: Pain Referrals: Peyman Martins DO [Primary Care Provider] - 1-2 days Karsten Geronimo MD [STAFF PHYSICIAN] - 1-2 days Time of Disposition: 10:29
--- NOTE | 2017-12-03 09:27 | CT ---
EXAMINATION TYPE: CT abdomen pelvis w con DATE OF EXAM: 12/03/2017 COMPARISON: NONE HISTORY: Urinary Retention CT DLP: 1782.4 mGycm CONTRAST: CT scan of the abdomen and pelvis is performed without Oral Contrast and with IV Contrast, patient in jected with 100 mL of Omnipaque 300. FINDINGS: LUNG BASES-: No visible nodule. No infiltrate. There is evidence of cardiomegaly. Coronary artery ca lcifications are seen. LIVER/GB: Multiple tiny gallstones identified. No wall thickening or pericholecystic fluid. No callie id space occupying hepatic lesion. Several tiny subcentimeter hepatic cysts are identified. Biliary t ree is of normal caliber. PANCREAS: No inflammation. No distinct mass. SPLEEN: No splenic enlargement. No lesion seen. ADRENALS: No nodule. No thickening. KIDNEYS/BLADDER: No hydronephrosis. No nephrolithiasis. No distinct renal mass. Looney catheter is in place. Urinary bladder is decompressed. BOWEL: Normal appendix. Scattered sigmoid diverticula. Ascending colon is decompressed. Normal bowel caliber. No inflammation. GENITAL ORGANS: The prostate gland is enlarged and measures 5.7 x 5.0 cm. LYMPH NODES: No greater than 1cm abdominal or pelvic lymph nodes are appreciated. AORTA: No significant abnormality. OSSEOUS STRUCTURES: Degenerative changes lumbar spine.. OTHER: No significant additional abnormality is seen. IMPRESSION: 1. Resting gland enlargement. 2. Looney balloon catheter is within the urinary bladder with decompression of the urinary bladder diane ntified. 3. Tiny gallstones identified without wall thickening.
[2017-12-03 11:06] VITALS: BP 139/75; PULSE 72; TEMP 97.5
== END 2017-12-03 11:07 | disposition home or self-care (01) ==
LOC: EC 07:25
DX: N32.89 Other specified disorders of bladder (principal); R33.9 Retention of urine, unspecified; R10.9 Unspecified abdominal pain; I11.0 Hypertensive heart disease with heart failure; I50.9 Heart failure, unspecified; G47.30 Sleep apnea, unspecified; Z99.89 Dependence on other enabling machines and devices; N40.0 Benign prostatic hyperplasia without lower urinary tract symptoms; F32.9 Major depressive disorder, single episode, unspecified; Z85.828 Personal history of other malignant neoplasm of skin; Z79.899 Other long term (current) drug therapy; Z88.2 Allergy status to sulfonamides
CPT/HCPCS: 99284 ×2; 96360 ×2; 96361 ×2; 51702 ×2; 51798; 36415; 93005; 80053; 82550; 82553; 84484; 85025; 85610; 85730; 81001; 71046; 74177; Q9967

== ENCOUNTER → 2018-01-14 | Outpatient (CLI) | payer MEDICARE, OTHER ==
--- NOTE | 2018-01-14 14:41 | PN ---
PROGRESS NOTE 87-year-old male patient with known history of obstructive sleep apnea and dementia is coming in for a followup regarding his FAUZIA treatment. During his last visit the patient was having leaks around the mask and I provided him an AirFit F20 full face mask medium size. On today's evaluation he is still having some leaks however treatment has been successful and his AHI is down to 0.7 while on treatment. The patient has been averaging around 6.5 hours of BiPAP use per night and his BiPAP use for more than 4 hours is 28/30. He has been compliant. I came to find out that the patient has loose straps and he needs to tighten up the straps around the mask. Otherwise he has no specific complaints. He is waking up much more refreshed and alert and his sleep quality seems to have improved while on the BiPAP therapy. PHYSICAL EXAMINATION: His current vital signs: BP is 125/62, pulse 64, respirations 16, temperature 98.3, saturation 92% on room air. Height is 5 feet 5, weight 207, BMI 34.4. GENERAL APPEARANCE: Calm, comfortable. No acute distress. Head is atraumatic, normocephalic. Neck is short, supple. There is no goiter or neck mass. LUNGS: Clear to auscultation. HEART: Sounds regular rate and rhythm. Normal S1, S2. No S3. No murmurs. ABDOMEN: Soft, nontender. No organomegaly. EXTREMITIES: No edema. No cyanosis or clubbing. NEUROLOGIC: Awake and alert with some underlying dementia. No focal neurological deficits. PSYCHIATRIC: Negative for anxiety or depression. IMPRESSION: 1. Obstructive sleep apnea, currently on BiPAP therapy at a pressure of 12/8. 2. Mask leaks likely secondary to loose straps. 3. Cerebrovascular accident. 4. Dementia. 5. Benign prostatic hypertrophy. 6. Hypertension. 7. History of anxiety/depression. PLAN: 1. Continue using the AirFit F20. 2. Continue same BiPAP pressure. 3. See me back in a year's time in followup. Appropriate education on mask fit was given. MMODL / IJN: [id number] /
== END | disposition home or self-care (01) ==
LOC: SLEEP 13:31
PROVIDERS: ATTEND Internal Medicine Critical Care Medicine
DX: G47.33 Obstructive sleep apnea (adult) (pediatric) (principal); F03.90 Unspecified dementia, unspecified severity, without behavioral disturbance, psychotic disturbance, mood disturbance, and anxiety; I63.9 Cerebral infarction, unspecified; N40.0 Benign prostatic hyperplasia without lower urinary tract symptoms; I10 Essential (primary) hypertension; F41.9 Anxiety disorder, unspecified; F32.9 Major depressive disorder, single episode, unspecified; Z99.89 Dependence on other enabling machines and devices

== ENCOUNTER 2018-03-04 11:04 | Observation (INO) | payer MEDICARE, OTHER ==
[2018-03-04] MEDS ORDERED: SODIUM CHLORIDE 0.9% 1,000 ML IV STA ×2 (11:26)
--- NOTE | 2018-03-04 11:31 | ED ---
Dizziness HPI - General Chief Complaint: Dizziness Stated Complaint: dizzy Time Seen by Provider: 03/04/18 11:15 Source: EMS, RN notes reviewed, old records reviewed Mode of arrival: EMS Limitations: no limitations - History of Present Illness Initial Comments: This Patient is an 87-year-old male with a history of stroke, and intermittent A. fib with a history of loop recorder placement presents today chief complaint of dizziness. He reports that he did have one episode of diarrhea. Dizziness is worse with worse with going from a sitting to standing position. He states that he has no specific pain at this time. He denies any chest pain, shortness of breath or headache. He states that he just feels lightheaded, denies vertigo like symptoms with the room spinning. He states that he has had no abdominal pain. No recent antibiotics. He does have a history of dementia and is very hard of hearing. - Related Data Home Medications Medication Instructions Recorded Confirmed Furosemide [Lasix] 40 mg PO QAM 02/28/15 03/04/18 Potassium Chloride [Klor-Con 20] 20 meq PO W/SUPPER 04/01/15 03/04/18 Sertraline [Zoloft] 50 mg PO QAM 03/01/17 03/04/18 ALPRAZolam [Xanax] 0.5 mg PO DAILY PRN 12/03/17 03/04/18 Donepezil [Aricept] 10 mg PO DAILY 12/03/17 03/04/18 NIFEdipine XL [Procardia Xl] 30 mg PO DAILY 12/03/17 03/04/18 Acetaminophen Tab [Tylenol Tab] 500 mg PO Q6H PRN 03/04/18 03/04/18 Calcium Polycarbophil [Fibercon] 1,250 mg PO BID 03/04/18 03/04/18 Sennosides [Senna] 8.6 mg PO DAILY PRN 03/04/18 03/04/18 predniSONE 1 mg PO HS 03/04/18 03/04/18 predniSONE 5 mg PO HS 03/04/18 03/04/18 Previous Rx's Medication Instructions Recorded Aspirin EC [Ecotrin Low Dose] 81 mg PO DAILY #30 tablet. 03/03/17 Allergies Allergy/AdvReac Type Severity Reaction Status Date / Time sulfamethoxazole AdvReac BLOOD Verified 03/04/18 11:18 [From Bactrim] SUGAR DROPPED trimethoprim [From Bactrim] AdvReac BLOOD Verified 03/04/18 11:18 SUGAR DROPPED Review of Systems ROS Statement: Those systems with pertinent positive or pertinent negative responses have been documented in the HPI. ROS Other: All systems not noted in ROS Statement are negative. Past Medical History Past Medical History: Cancer, Heart Failure, CVA/TIA, Hyperlipidemia, Hypertension, Pneumonia, Sleep Apnea/CPAP/BIPAP Additional Past Medical History / Comment(s): HYPOGLYCEMIA. skin cancer removed off penis. URINARY RETENTION/HALL CATH. BPH. History of Any Multi-Drug Resistant Organisms: None Reported Past Surgical History: No Surgical Hx Reported Additional Past Surgical History / Comment(s): 04/05/15 LOOP recorder placed, 2014 EGD, colonoscopy 2005 removed one polyp and is scheduled every 4 years, skin cancer removed. Past Anesthesia/Blood Transfusion Reactions: No Reported Reaction Past Psychological History: Depression Smoking Status: Never smoker Past Alcohol Use History: None Reported Past Drug Use History: None Reported - Past Family History Father Family Medical History: Cancer Additional Family Medical History / Comment(s): colon cancer and at age 92 Mother Family Medical History: CVA/TIA, Dementia, Diabetes Mellitus Additional Family Medical History / Comment(s): from complications of CVA at age 76 Brother(s) Family Medical History: Prostate Disorder Additional Family Medical History / Comment(s): 2 brothers had prostate cancer, 1 brother with colon cancer Sister(s) Family Medical History: Cancer Additional Family Medical History / Comment(s): He has 3 sisters. No major medical problems. Daughter(s) Family Medical History: Cancer Additional Family Medical History / Comment(s): COLON General Exam - General Exam Comments Initial Comments: Patient is a frail appearing 87-year-old male. Does not appear to be in any acute distress at this time. Limitations: no limitations General appearance: alert, in no apparent distress Head exam: Present: atraumatic, normocephalic, normal inspection Eye exam: Present: normal appearance, PERRL, EOMI. Absent: scleral icterus, conjunctival injection, periorbital swelling ENT exam: Present: normal exam, normal oropharynx, mucous membranes moist, TM's normal bilaterally Neck exam: Present: normal inspection. Absent: tenderness, meningismus, lymphadenopathy Respiratory exam: Present: normal lung sounds bilaterally. Absent: respiratory distress, wheezes, rales, rhonchi, stridor Cardiovascular Exam: Present: regular rate, normal rhythm, normal heart sounds. Absent: systolic murmur, diastolic murmur, rubs, gallop, clicks GI/Abdominal exam: Present: soft, normal bowel sounds. Absent: distended, tenderness, guarding, rebound, rigid Extremities exam: Present: normal inspection, full ROM, normal capillary refill , other (Bilateral pedal edema.). Absent: tenderness, pedal edema, joint swelling, calf tenderness Back exam: Present: normal inspection Neurological exam: Present: alert, oriented X3, CN II-XII intact Psychiatric exam: Present: normal affect, normal mood Skin exam: Present: warm, dry, intact, normal color. Absent: rash Course Vital Signs 03/04/18 03/04/18 03/04/18 11:06 12:40 13:17 Temperature 97.5 F L Pulse Rate 55 L 51 L Pulse Rate [ 72 Sitting] Pulse Rate [ 72 Standing] Pulse Rate [ 74 Supine] Respiratory 18 20 Rate Blood Pressure 164/67 148/65 Blood Pressure 173/76 [Sitting] Blood Pressure 177/76 [Standing] Blood Pressure 182/81 [Supine] O2 Sat by Pulse 95 96 Oximetry 03/04/18 13:24 Temperature 97.3 F L Pulse Rate Pulse Rate [ Sitting] Pulse Rate [ Standing] Pulse Rate [ Supine] Respiratory Rate Blood Pressure Blood Pressure [Sitting] Blood Pressure [Standing] Blood Pressure [Supine] O2 Sat by Pulse Oximetry - Reevaluation(s) Reevaluation #1: 03/04/18 13:52 Patient is reevaluated multiple times, didn't take his pain of dizziness with sitting to standing. Did require assistance to ambulate to the bathroom. He seems to be somewhat weak. He has no focal neurological deficits. EKG Findings - EKG Comments: EKG Findings:: EKG performed at 1128 shows sinus bradycardia, left axis deviation. Minimal voltage criteria for LVH. May be normal variant. Ventricular rate of 54 bpm. Pulse 194 ms. QRS duration 84. QT QTc is 442/419 ms. Medical Decision Making - Medical Decision Making This is an 87-year-old male presents emergency Department with a chief complaint of dizziness. He states that he woke up today was complaining of dizziness. Patient has had a few episodes of diarrhea as well. No fever or chills and denies any abdominal pain. Did complain of some mild nausea. Patient was given IV fluids and lab work obtained. Stool culture and study obtained. Urinalysis negative for infection. EKG shows no acute abnormalities. Troponins negative. BNP is normal. The rest of his lab work was reviewed and unremarkable. Patient continued to have some dizziness while exam. We will try meclizine. He does not seem to have vertigo like symptoms with his dizziness. He denies that the room is spinning he just feels lightheaded. Orthostatics were negative. At this time family does not feel comfortable taking the Patient home. Patient will be admitted for observation for dizziness, rehydration and evaluation. Stool culture pending. Dr. Lobo discussed case with Dr. Morley and accepts the admission. - Lab Data Result diagrams: 03/04/18 11:16 03/04/18 11:16 Lab Results 03/04/18 03/04/18 03/04/18 Range/Units 11:16 11:16 11:16 WBC 9.7 (3.8-10.6) k/uL RBC 5.32 (4.30-5.90) m/uL Hgb 15.7 (13.0-17.5) gm/dL Hct 46.6 (39.0-53.0) % MCV 87.6 (80.0-100.0) fL MCH 29.5 (25.0-35.0) pg MCHC 33.7 (31.0-37.0) g/dL RDW 15.0 (11.5-15.5) % Plt Count 193 (150-450) k/uL Neutrophils % 80 % Lymphocytes % 12 % Monocytes % 6 % Eosinophils % 1 % Basophils % 0 % Neutrophils # 7.8 H (1.3-7.7) k/uL Lymphocytes # 1.1 (1.0-4.8) k/uL Monocytes # 0.5 (0-1.0) k/uL Eosinophils # 0.1 (0-0.7) k/uL Basophils # 0.0 (0-0.2) k/uL Sodium 143 (137-145) mmol/L Potassium 3.7 (3.5-5.1) mmol/L Chloride 101 (98-107) mmol/L Carbon Dioxide 29 (22-30) mmol/L Anion Gap 13 mmol/L BUN 21 H (9-20) mg/dL Creatinine 0.89 (0.66-1.25) mg/dL Est GFR (CKD-EPI)AfAm 89 (>60 ml/min/1.73 sqM) Est GFR (CKD-EPI)NonAf 77 (>60 ml/min/1.73 sqM) Glucose 59 L (74-99) mg/dL Plasma Lactic Acid Diego 1.9 (0.7-2.0) mmol/L Calcium 9.2 (8.4-10.2) mg/dL Total Bilirubin 0.6 (0.2-1.3) mg/dL AST 27 (17-59) U/L ALT 33 (21-72) U/L Alkaline Phosphatase 106 (38-126) U/L Troponin I (0.000-0.034) ng/mL NT-Pro-B Natriuret Pep pg/mL Total Protein 6.3 (6.3-8.2) g/dL Albumin 3.9 (3.5-5.0) g/dL Urine Color Urine Appearance (Clear) Urine pH (5.0-8.0) Ur Specific [place] (1.001-1.035) Urine Protein (Negative) Urine Glucose (UA) (Negative) Urine Ketones (Negative) Urine Blood (Negative) Urine Nitrite (Negative) Urine Bilirubin (Negative) Urine Urobilinogen (<2.0) mg/dL Ur Leukocyte Esterase (Negative) Stool Occult Blood (Negative) 03/04/18 03/04/18 03/04/18 Range/Units 11:16 11:16 11:38 WBC (3.8-10.6) k/uL RBC (4.30-5.90) m/uL Hgb (13.0-17.5) gm/dL Hct (39.0-53.0) % MCV (80.0-100.0) fL MCH (25.0-35.0) pg MCHC (31.0-37.0) g/dL RDW (11.5-15.5) % Plt Count (150-450) k/uL Neutrophils % % Lymphocytes % % Monocytes % % Eosinophils % % Basophils % % Neutrophils # (1.3-7.7) k/uL Lymphocytes # (1.0-4.8) k/uL Monocytes # (0-1.0) k/uL Eosinophils # (0-0.7) k/uL Basophils # (0-0.2) k/uL Sodium (137-145) mmol/L Potassium (3.5-5.1) mmol/L Chloride (98-107) mmol/L Carbon Dioxide (22-30) mmol/L Anion Gap mmol/L BUN (9-20) mg/dL Creatinine (0.66-1.25) mg/dL Est GFR (CKD-EPI)AfAm (>60 ml/min/1.73 sqM) Est GFR (CKD-EPI)NonAf (>60 ml/min/1.73 sqM) Glucose (74-99) mg/dL Plasma Lactic Acid Diego (0.7-2.0) mmol/L Calcium (8.4-10.2) mg/dL Total Bilirubin (0.2-1.3) mg/dL AST (17-59) U/L ALT (21-72) U/L Alkaline Phosphatase (38-126) U/L Troponin I <0.012 (0.000-0.034) ng/mL NT-Pro-B Natriuret Pep 255 pg/mL Total Protein (6.3-8.2) g/dL Albumin (3.5-5.0) g/dL Urine Color Light Yellow Urine Appearance Clear (Clear) Urine pH 6.0 (5.0-8.0) Ur Specific [place] 1.007 (1.001-1.035) Urine Protein Negative (Negative) Urine Glucose (UA) Negative (Negative) Urine Ketones Negative (Negative) Urine Blood Negative (Negative) Urine Nitrite Negative (Negative) Urine Bilirubin Negative (Negative) Urine Urobilinogen <2.0 (<2.0) mg/dL Ur Leukocyte Esterase Negative (Negative) Stool Occult Blood (Negative) 03/04/18 Range/Units 11:45 WBC (3.8-10.6) k/uL RBC (4.30-5.90) m/uL Hgb (13.0-17.5) gm/dL Hct (39.0-53.0) % MCV (80.0-100.0) fL MCH (25.0-35.0) pg MCHC (31.0-37.0) g/dL RDW (11.5-15.5) % Plt Count (150-450) k/uL Neutrophils % % Lymphocytes % % Monocytes % % Eosinophils % % Basophils % % Neutrophils # (1.3-7.7) k/uL Lymphocytes # (1.0-4.8) k/uL Monocytes # (0-1.0) k/uL Eosinophils # (0-0.7) k/uL Basophils # (0-0.2) k/uL Sodium (137-145) mmol/L Potassium (3.5-5.1) mmol/L Chloride (98-107) mmol/L Carbon Dioxide (22-30) mmol/L Anion Gap mmol/L BUN (9-20) mg/dL Creatinine (0.66-1.25) mg/dL Est GFR (CKD-EPI)AfAm (>60 ml/min/1.73 sqM) Est GFR (CKD-EPI)NonAf (>60 ml/min/1.73 sqM) Glucose (74-99) mg/dL Plasma Lactic Acid Diego (0.7-2.0) mmol/L Calcium (8.4-10.2) mg/dL Total Bilirubin (0.2-1.3) mg/dL AST (17-59) U/L ALT (21-72) U/L Alkaline Phosphatase (38-126) U/L Troponin I (0.000-0.034) ng/mL NT-Pro-B Natriuret Pep pg/mL Total Protein (6.3-8.2) g/dL Albumin (3.5-5.0) g/dL Urine Color Urine Appearance (Clear) Urine pH (5.0-8.0) Ur Specific [place] (1.001-1.035) Urine Protein (Negative) Urine Glucose (UA) (Negative) Urine Ketones (Negative) Urine Blood (Negative) Urine Nitrite (Negative) Urine Bilirubin (Negative) Urine Urobilinogen (<2.0) mg/dL Ur Leukocyte Esterase (Negative) Stool Occult Blood Negative (Negative) - Radiology Data Radiology results: report reviewed Nonobstructive bowel gas pattern noted. Minimal platelike subsegmental left basilar atelectasis, otherwise no acute cardiopulmonary process. Disposition Clinical Impression: Diarrhea, Dizziness Disposition: ADMITTED IP TO THIS HOSP Condition: Stable Instructions: Dizziness (ED) Is patient prescribed a controlled substance at d/c from ED?: No When asked, does pt state using other controlled substances?: No If prescribed controlled substance>3 days was MAPS reviewed?: No If opioid is for acute pain is fill amount 7 days or less?: No If Rx opioid, was Start Talking consent form obtained?: No Referrals: Peyman Martins DO [Primary Care Provider] - 1-2 days Time of Disposition: 13:54
[2018-03-04 11:56] LABS: Basophils % (A) 0 %; Eosinophils # (A) 0.1 k/uL (0-0.7); Eosinophils % (A) 1 %; HCT 46.6 % (39.0-53.0); HGB 15.7 gm/dL (13.0-17.5); Lymphocytes # (A) 1.1 k/uL (1.0-4.8); Lymphocytes % (A) 12 %; MCH 29.5 pg (25.0-35.0); MCHC 33.7 g/dL (31.0-37.0); MCV 87.6 fL (80.0-100.0); Mean Platelet Volume 7.1; Monocytes # (A) 0.5 k/uL (0-1.0); Monocytes % (A) 6 %; Neutrophils # (A) 7.8 k/uL (1.3-7.7); Neutrophils % (A) 80 %; Platelet Count 193 k/uL (150-450); RBC 5.32 m/uL (4.30-5.90); WBC 9.7 k/uL (3.8-10.6)
[2018-03-04 12:07] LABS: Albumin 3.9 g/dL (3.5-5.0); Calcium 9.2 mg/dL (8.4-10.2); Potassium 3.7 mmol/L (3.5-5.1); Total Bilirubin 0.6 mg/dL (0.2-1.3); Total Protein 6.3 g/dL (6.3-8.2)
--- NOTE | 2018-03-04 12:23 | XR ---
EXAMINATION TYPE: XR chest 2V DATE OF EXAM: 03/04/2018 COMPARISON: 12/03/2017 HISTORY: Dizziness TECHNIQUE: Frontal and lateral views of the chest are obtained. FINDINGS: There is no focal air space opacity, pleural effusion, or pneumothorax seen. There is righ t hemidiaphragm elevation noted. Minimal left basilar subsegmental atelectasis is seen. Cardiomediast inal silhouette is enlarged and unchanged from the prior. Incidentally noted cardiac loop recorder is seen. Mild degenerative changes of the thoracic spine. IMPRESSION: Minimal platelike subsegmental left basilar atelectasis otherwise acute cardiopulmonary process.
--- NOTE | 2018-03-04 12:24 | XR ---
EXAMINATION TYPE: XR KUB DATE OF EXAM: 03/04/2018 12:19 PM CLINICAL HISTORY: Abdominal pain and dizziness TECHNIQUE: Single supine KUB image of the abdomen is obtained. COMPARISON: None. FINDINGS: Gaseous distention without dilation of the colon is seen. Scattered gas is seen in nondilat ed small bowel loops. Gas and fecal material is seen in nondilated colon. There is no gross evidence of visceromegaly, pneumoperitoneum, or abnormal calcification appreciated. The lung bases are clear a nd the osseous structures are intact. Moderate multilevel degenerative changes of the thoracic spine are noted. IMPRESSION: Nonobstructive bowel gas pattern.
[2018-03-04 12:36] LABS: Appearance,Urine Clear (Clear); Bilirubin,Urine Negative (Negative); Blood,Urine Negative (Negative); Color,Urine Light Yellow; Glucose,Urine (UA) Negative (Negative); Ketones,Urine Negative (Negative); Leukocyte Esterase,Urine Negative (Negative); Nitrite,Urine Negative (Negative); Protein,Urine Negative (Negative); Specific Gravity,Urine 1.007 (1.001-1.035); Urobilinogen,Urine <2.0 mg/dL (<2.0)
[2018-03-04] MEDS ORDERED: ONDANSETRON 4 MG/2 ML VIAL IVP STA (13:10)
[2018-03-04] MEDS ORDERED: MECLIZINE 12.5 MG TAB PO STA (13:54)
[2018-03-04] MEDS ORDERED: oxyCODONE-APAP 5-325MG 1 EACH TAB PO PRN (13:55)
[2018-03-04] MEDS ORDERED: IBUPROFEN 400 MG TAB PO PRN (13:55)
[2018-03-04] MEDS ORDERED: ONDANSETRON 4 MG/2 ML VIAL IVP PRN ×2 (13:55→17:48)
[2018-03-04] MEDS ORDERED: Acetaminophen-Codeine 300-30mg TAB PO PRN (13:55)
[2018-03-04] MEDS ORDERED: ACETAMINOPHEN TAB 325 MG TAB PO PRN ×2 (13:55→17:48)
[2018-03-04] MEDS ORDERED: NALOXONE 0.4 MG/ML 1 ML VIAL IV PRN (13:55)
[2018-03-04] MEDS ORDERED: SENNOSIDES 8.6 MG TAB PO PRN (13:58)
[2018-03-04] MEDS ORDERED: ACETAMINOPHEN TAB 500 MG TAB PO PRN (13:58)
[2018-03-04] MEDS ORDERED: ALPRAZolam 0.5 MG TAB PO PRN (13:58)
[2018-03-04] MEDS ORDERED: IPRATROPIUM-ALBUTEROL 3 ML NEB INHALATION PRN (17:48)
[2018-03-04] MEDS ORDERED: SODIUM CHLORIDE 0.9% 1,000 ML IV SCH (18:00)
--- NOTE | 2018-03-04 18:01 | P.HPIM ---
History of Present Illness H&P Date: 03/04/18 This is a 87 years old male with patient history of skin cancer, congestive heart failure, previous strokes, requiring loop recorder in the past , hyperlipidemia, hypertension, BPH, obstructive sleep apnea on CPAP machine, urinary retention's come into the hospital with dizziness and diarrhea. Patient was having diarrhea for the past 2 days which she states resolved today but continues to have dizziness when he stood up. Patient given 1 L of IV fluids initiated on 75 mL per hour of IV fluids. Urine analysis is negative for any infection. BNP suggestive glucose of 59 but otherwise normal Review of Systems Constitutional: Denies chills, Denies fever, Denies lethargy, Denies malaise, Denies poor appetite, Denies weakness, Denies weight loss Eyes: denies decreased vision, denies diplopia, denies discharge, denies pain Ears: deny: decreased hearing Ears, nose, mouth and throat: Denies dental pain, Denies headache, Denies nasal discharge, Denies nose pain Cardiovascular: Denies chest pain, Denies decreased exercise tolerance, Denies edema, Denies high blood pressure, Denies irregular heart beat, Denies palpitations, Denies paroxysmal nocturnal dyspnea, Denies rapid heart beat, Denies shortness of breath Respiratory: Denies congestion, Denies cough, Denies cough with sputum, Denies dyspnea, Denies home oxygen, Denies wheezing Gastrointestinal: Denies abdominal pain, endorses change in bowel habits, Denies coffee ground emesis, Denies early satiety, Denies excessive gas, Denies heartburn, Denies hematemesis, Denies hematochezia, Denies loss of appetite, Denies nausea, Denies vomiting Genitourinary: Denies dysuria, Denies flank pain, Denies kidney stones, Denies menorrhagia, Denies urgency, Denies urinary frequency Musculoskeletal: Denies gait dysfunction, Denies limitation of motion, Denies morning stiffness, Denies muscle cramps Integumentary: Denies rash, Denies wounds, Denies brittle nails, Denies change in hair/nails, Denies darkening of skin Neurological: Endorses balance difficulties, Denies change in speech, Denies double vision, Denies gait dysfunction, Denies loss of vision, Denies motor disturbance, Denies numbness, Denies paralysis, Denies paresthesias, Denies seizures Psychiatric: Denies anxiety, Denies depression Endocrine: Denies excessive sweating, Denies excessive thirst, Denies high blood sugars, Denies palpitations Hematologic/Lymphatic: Denies easy bruising, Denies lymphadenopathy Past Medical History Past Medical History: Cancer, Heart Failure, CVA/TIA, Hyperlipidemia, Hypertension, Pneumonia, Sleep Apnea/CPAP/BIPAP Additional Past Medical History / Comment(s): rt side dominant HYPOGLYCEMIA. skin cancer removed off penis. hx of URINARY retention/uti/BPH. sleep apnea- uses a cpap machine History of Any Multi-Drug Resistant Organisms: None Reported Past Surgical History: No Surgical Hx Reported Additional Past Surgical History / Comment(s): 04/05/15 LOOP recorder placed, 2014 EGD, colonoscopy 2005 removed one polyp and is scheduled every 4 years, skin cancer removed. Past Anesthesia/Blood Transfusion Reactions: No Reported Reaction Smoking Status: Never smoker - Past Family History Father Family Medical History: Cancer Additional Family Medical History / Comment(s): colon cancer and at age 92 Mother Family Medical History: CVA/TIA, Dementia, Diabetes Mellitus Additional Family Medical History / Comment(s): from complications of CVA at age 76 Brother(s) Family Medical History: Prostate Disorder Additional Family Medical History / Comment(s): 2 brothers had prostate cancer, 1 brother with colon cancer Sister(s) Family Medical History: Cancer Additional Family Medical History / Comment(s): He has 3 sisters. No major medical problems. Daughter(s) Family Medical History: Cancer Additional Family Medical History / Comment(s): COLON Medications and Allergies Home Medications Medication Instructions Recorded Confirmed Type Furosemide [Lasix] 40 mg PO QAM 02/28/15 03/04/18 History Potassium Chloride [Klor-Con 20] 20 meq PO W/SUPPER 04/01/15 03/04/18 History Sertraline [Zoloft] 50 mg PO QAM 03/01/17 03/04/18 History Aspirin EC [Ecotrin Low Dose] 81 mg PO DAILY #30 tablet. 03/03/17 03/04/18 Rx ALPRAZolam [Xanax] 0.5 mg PO DAILY PRN 12/03/17 03/04/18 History Donepezil [Aricept] 10 mg PO DAILY 12/03/17 03/04/18 History NIFEdipine XL [Procardia Xl] 30 mg PO DAILY 12/03/17 03/04/18 History Acetaminophen Tab [Tylenol Tab] 500 mg PO Q6H PRN 03/04/18 03/04/18 History Calcium Polycarbophil [Fibercon] 1,250 mg PO BID 03/04/18 03/04/18 History Sennosides [Senna] 8.6 mg PO DAILY PRN 03/04/18 03/04/18 History predniSONE 1 mg PO HS 03/04/18 03/04/18 History predniSONE 5 mg PO HS 03/04/18 03/04/18 History Allergies Allergy/AdvReac Type Severity Reaction Status Date / Time sulfamethoxazole AdvReac BLOOD Verified 03/04/18 11:18 [From Bactrim] SUGAR DROPPED trimethoprim [From Bactrim] AdvReac BLOOD Verified 03/04/18 11:18 SUGAR DROPPED Physical Exam Vitals: Vital Signs Temp Pulse Pulse Pulse Pulse Pulse Resp 03/04/18 16:38 97.9 F 66 16 03/04/18 15:52 03/04/18 14:44 97.2 F L 75 18 03/04/18 13:24 97.3 F L 03/04/18 13:17 72 72 74 03/04/18 12:40 51 L 20 03/04/18 11:06 97.5 F L 55 L 18 BP BP BP BP BP Pulse Ox 03/04/18 16:38 144/83 96 03/04/18 15:52 96 03/04/18 14:44 170/78 95 03/04/18 13:24 03/04/18 13:17 173/76 177/76 182/81 03/04/18 12:40 148/65 96 03/04/18 11:06 164/67 95 Intake and Output 03/04/18 03/04/18 03/04/18 06:59 14:59 22:59 Other: Weight 95.254 kg - Constitutional General appearance: cooperative, no acute distress, obese - EENT Eyes: anicteric sclerae, PERRLA, normal appearance ENT: hearing grossly normal - Neck Neck: no lymphadenopathy, normal ROM, no other, no rigidity, no stridor, no thyromegaly - Respiratory Respiratory: bilateral: CTA, negative: diminished, dullness, rales, rhonchi - Cardiovascular Rhythm: regular Heart sounds: normal: S1, S2 Abnormal Heart Sounds: no systolic murmur, no diastolic murmur, no rub, no S3 Gallop, no S4 Gallop, no click, no other - Gastrointestinal General gastrointestinal: normal bowel sounds, soft - Integumentary Integumentary: no rash - Neurologic Neurologic: CNII-XII intact, coordination intact, motor and sensory system intact reflexes intact, no nystagmus - Musculoskeletal Musculoskeletal: gait not assessed due to dizziness. Strength equal bilaterally - Psychiatric Psychiatric: A&O x's 3, appropriate affect Results CBC & Chem 7: 03/04/18 11:16 03/04/18 11:16 Labs: Abnormal Lab Results - Last 24 Hours (Table) 03/04/18 03/04/18 Range/Units 11:16 11:16 Neutrophils # 7.8 H (1.3-7.7) k/uL BUN 21 H (9-20) mg/dL Glucose 59 L (74-99) mg/dL Microbiology - Last 24 Hours (Table) 03/04/18 11:38 Urine Culture - Preliminary Urine,Voided Thrombosis Risk Factor Assmnt - DVT/VTE Prophylaxis DVT/VTE Prophylaxis: Pharmacologic Prophylaxis ordered - Choose All That Apply Any of the Below Risk Factors Present?: Yes Each Factor Represents 1 point: Obesity (BMI >25) Each Risk Factor Represents 3 Points: Age 75 years or older Other congenital or acquired thrombophilia - If yes, enter type in comment: No Thrombosis Risk Factor Assessment Total Risk Factor Score: 4 Thrombosis Risk Factor Assessment Level: Moderate Risk Assessment and Plan Plan: #1 dizziness likely secondary to orthostatic hypotension. Patient received 1 L IV fluids. Continue IV fluids at 100 mL/h as patient has history of previous strokes stroke cannot be completely ruled out. Neurology evaluation. Echocardiogram ordered. Orthostatics ordered. Carotid Dopplers ordered. Continue aspirin patient is not on Lipitor with initiated Lipitor 40 mg daily. Lipid panel ordered. #2 history of BPH with urinary retention #3 dementia on Aricept. Stable. #4 hypertension continue nifedipine. #5 anxiety continue Xanax 0.5 mg by mouth daily as needed #6 depression continue Zoloft 50 mg by mouth daily #7 history of previous6 years ago. He was worked up for cryptogenic stroke and atrial fibrillation was ruled out on an event monitor to stop anticoagulation was not recommended at that time #8 sleep apnea continue CPAP at night. #9 constipations continue MiraLAX #10 DVT prophylaxis continue Lovenox #11 patient is on chronic steroids unknown why patient is not able to provide any history #11 CODE STATUS full code
[2018-03-04] MEDS: FAMOTIDINE 20 MG TAB PO SCH (19:00)
[2018-03-04] MEDS: POTASSIUM CHLORIDE ER 20 MEQ TAB.ER PO SCH (19:00)
[2018-03-04] MEDS: predniSONE 5 MG TAB PO SCH (20:17)
[2018-03-04] MEDS: CALCIUM POLYCARBOPHIL 625 MG TAB PO SCH (20:17)
[2018-03-04] MEDS: predniSONE 1 MG TAB PO SCH (20:17)
[2018-03-04] MEDS: HEPARIN SODIUM,PORCINE 5,000 UNIT/ML 1 ML VIAL SQ SCH (20:27)
--- NOTE | 2018-03-04 20:33 | US ---
EXAMINATION TYPE: US carotid duplex BILAT DATE OF EXAM: 03/04/2018 COMPARISON: NONE CLINICAL HISTORY: CVA. Dizziness. Exam limitations due to tortuous vessels. EXAM MEASUREMENTS: RIGHT: Peak Systolic Velocity (PSV) cm/sec ----- Right CCA: 52.0 ----- Right ICA: 70.3 ----- Right ECA: 63.8 ICA/CCA ratio: 1.4 RIGHT: End Diastole cm/sec ----- Right CCA: 0 ----- Right ICA: 0 ----- Right ECA: 0 LEFT: Peak Systolic Velocity (PSV) cm/sec ----- Left CCA: 83.5 ----- Left ICA: 109.7 ----- Left ECA: 66.1 ICA/CCA ratio: 1.3 LEFT: End Diastole cm/sec ----- Left CCA: 12.0 ----- Left ICA: 0 ----- Left ECA: 9.5 VERTEBRALS (direction of flow): Right Vertebral: Antegrade Left Vertebral: Antegrade Rhythm: Normal Bilateral vessels dive deep. IMPRESSION: Exam is limited due to significant atherosclerotic plaque and calcification. The images and measurements suggest less than 50% stenosis in both internal carotid arteries. There is antegrade flow in the vertebral arteries. Criteria for Assigning % of Stenosis / Diameter reduction (Estimation based on the indirect measurements of the internal carotid artery velocities (ICA PSV). 1. Normal (no stenosis)=ICA PSV < 125 cm/s: ratio < 2.0: ICA EDV<40 cm/s. 2. Less than 50% stenosis=ICA PSV < 125 cm/s: ratio < 2.0: ICA EDV<40 cm/s. 3. 50 to 69% stenosis=ICA PSV of 125 to 230 cm/s: ration 2.0 ? 4.0: ICA EDV 40-100 cm/s. 4. Greater than 70% stenosis to near occlusion= ICA PSV > 230 cm/s: ratio > 4.0: ICA EDV > 100 cm/s. 5. Near occlusion= ICA PSV velocities may be low or undetectable: variable ratio and ICA EDV. 6. Total occlusion=unable to detect flow.
[2018-03-04 20:56] LABS: Glucose,Whole Blood 84 mg/dL (75-99)
[2018-03-05 07:01] LABS: Glucose,Whole Blood 67 mg/dL (75-99)
[2018-03-05 07:21] LABS: Glucose,Whole Blood 79 mg/dL (75-99)
[2018-03-05 07:46] LABS: Basophils % (A) 0 %; Eosinophils # (A) 0.1 k/uL (0-0.7); Eosinophils % (A) 1 %; HCT 44.2 % (39.0-53.0); HGB 14.4 gm/dL (13.0-17.5); Lymphocytes # (A) 1.1 k/uL (1.0-4.8); Lymphocytes % (A) 11 %; MCH 28.2 pg (25.0-35.0); MCHC 32.5 g/dL (31.0-37.0); MCV 86.9 fL (80.0-100.0); Mean Platelet Volume 7.5; Monocytes # (A) 0.5 k/uL (0-1.0); Monocytes % (A) 5 %; Neutrophils # (A) 8.4 k/uL (1.3-7.7); Neutrophils % (A) 83 %; Platelet Count 208 k/uL (150-450); RBC 5.09 m/uL (4.30-5.90); RDW 14.5 % (11.5-15.5); WBC 10.2 k/uL (3.8-10.6)
[2018-03-05 08:03] LABS: ALT 32 U/L (21-72); AST 23 U/L (17-59); Albumin 3.4 g/dL (3.5-5.0); Alkaline Phosphatase 95 U/L (38-126); Anion Gap 8 mmol/L; Blood Urea Nitrogen 15 mg/dL (9-20); Carbon Dioxide 30 mmol/L (22-30); Chloride 105 mmol/L (98-107); Glucose 72 mg/dL (74-99); Potassium 4.4 mmol/L (3.5-5.1); Sodium 143 mmol/L (137-145); Total Bilirubin 0.5 mg/dL (0.2-1.3); Total Protein 5.6 g/dL (6.3-8.2)
[2018-03-05] MEDS: FAMOTIDINE 20 MG TAB PO SCH (08:27)
[2018-03-05] MEDS: ATORVASTATIN 40 MG TAB PO SCH (08:27)
[2018-03-05] MEDS: ASPIRIN 81 MG PO SCH (08:27)
[2018-03-05] MEDS: FUROSEMIDE 40 MG TAB PO SCH (08:27)
[2018-03-05] MEDS: DONEPEZIL 10 MG TAB PO SCH (08:27)
[2018-03-05] MEDS: NIFEdipine XL 30 MG TAB.ER.24 PO SCH (08:27)
[2018-03-05] MEDS: SERTRALINE 50 MG TAB PO SCH (08:27)
[2018-03-05] MEDS: CALCIUM POLYCARBOPHIL 625 MG TAB PO SCH ×2 (08:28→20:26)
[2018-03-05] MEDS: HEPARIN SODIUM,PORCINE 5,000 UNIT/ML 1 ML VIAL SQ SCH ×2 (08:28→20:51)
[2018-03-05] MEDS ORDERED: ENOXAPARIN 40 MG/0.4 ML SYRINGE SQ SCH (09:00)
[2018-03-05] MEDS ORDERED: PANTOPRAZOLE 40 MG/10 ML VIAL IV SCH (09:00)
--- NOTE | 2018-03-05 11:16 | CT ---
EXAMINATION TYPE: CT brain wo con DATE OF EXAM: 03/05/2018 COMPARISON: 11/16/2017 INDICATION: Dizziness DLP: 1198 mGycm, Automated exposure control for dose reduction was used. CONTRAST: None CT of the brain is performed utilizing 3 mm thick sections through the posterior fossa and 3 mm thick sections through the remaining calvarium. Study is performed within 24 hours of arrival to the hosp [facility]. No abnormal hyperdensity is present to suggest an acute intracranial hemorrhage. No mass lesion is evident. There is hypodensity extending through the medial inferior right occipital lobe is present previously likely an old infarct. 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 Ventricles and sulci are somewhat prominent for the patient age. Paranasal sinuses and mastoid air cells within the [id number] are clear. IMPRESSIONS: 1. Old right occipital lobe infarct. 2. Atrophy with chronic appearing white matter ischemic changes.
[2018-03-05 11:51] LABS: Hemoglobin A1C 4.9 % (4.0-6.0)
[2018-03-05 12:02] LABS: Glucose,Whole Blood 82 mg/dL (75-99)
--- NOTE | 2018-03-05 12:10 | ECHOF ---
Referral Reason:CVA MEASUREMENTS -------- HEIGHT: 167.6 cm WEIGHT: 50.8 kg BP: 174/64 RVIDd: 3.3 cm (< 3.3) IVSd: 1.3 cm (0.6 - 1.1) LVIDd: 4.6 cm (3.9 - 5.3) LVPWd: 1.3 cm (0.6 - 1.1) IVSs: 1.9 cm LVIDs: 3.1 cm LVPWs: 1.6 cm LA Diam: 3.6 cm (2.7 - 3.8) LAESV Index (A-L): 38.18 ml/m Ao Diam: 3.5 cm (2.0 - 3.7) AV Cusp: 2.1 cm (1.5 - 2.6) MV EXCURSION: 14.577 mm (> 18.000) MV EF SLOPE: 31 mm/s (70 - 150) EPSS: 0.8 cm MV E Ezra: 0.81 m/s MV DecT: 425 ms MV A Ezra: 1.20 m/s MV E/A Ratio: 0.68 AV maxP.05 mmHg AV meanP.96 mmHg RAP: 5.00 mmHg RVSP: 31.41 mmHg FINDINGS -------- Sinus rhythm. This was a technically adequate study. The left ventricular size is normal. There is mild concentric left ventricular hypertrophy. Overa ll left ventricular systolic function is normal with, an EF between 55 - 60 %. The right ventricle is mildly enlarged. LA is moderately dilated 34-39 ml/m2 The right atrium is normal in size. There is moderate aortic valve sclerosis. There is moderate aortic stenosis present. Peak/mean gr adient across the Aortic Valve is 42.05mmHg / 20.96mmHg. Mild mitral annular calcification present. The tricuspid valve appears structurally normal. There is no pulmonic regurgitation present. The aortic root size is normal. Normal inferior vena cava with normal inspiratory collapse consistent with estimated right atrial pre ssure of 5 mmHg. There is no pericardial effusion. CONCLUSIONS -------- 1. Sinus rhythm. 2. This was a technically adequate study. 3. The left ventricular size is normal. 4. There is mild concentric left ventricular hypertrophy. 5. Overall left ventricular systolic function is normal with, an EF between 55 - 60 %. 6. The right ventricle is mildly enlarged. 7. LA is moderately dilated 34-39 ml/m2 8. The right atrium is normal in size. 9. There is moderate aortic valve sclerosis. 10. There is moderate aortic stenosis present. 11. Peak/mean gradient across the Aortic Valve is 42.05mmHg / 20.96mmHg. 12. Mild mitral annular calcification present. 13. The tricuspid valve appears structurally normal. 14. There is no pulmonic regurgitation present. 15. The aortic root size is normal. 16. Normal inferior vena cava with normal inspiratory collapse consistent with estimated right atrial pressure of 5 mmHg. 17. There is no pericardial effusion. PORCELAIN TECHNICIAN: Radha Mccracken RDCS
[2018-03-05 12:53] LABS: Glucose,Whole Blood 39 mg/dL (75-99)
[2018-03-05 13:17] LABS: Glucose,Whole Blood 61 mg/dL (75-99)
[2018-03-05 13:25] LABS: Glucose,Whole Blood 79 mg/dL (75-99)
[2018-03-05 17:41] LABS: Glucose,Whole Blood 65 mg/dL (75-99)
[2018-03-05 17:41] LABS: Glucose,Whole Blood 103 mg/dL (75-99)
--- NOTE | 2018-03-05 17:58 | P.CONS ---
History of Present Illness - Reason for Consult Consult date: 03/05/18 Dizziness - Chief Complaint Dizziness - History of Present Illness This is an 87-year-old pleasant male being evaluated by the neurology service for an episode of dizziness. He has a history of a previous stroke some years ago, but he has no residual neurological deficit since then. He had been having diarrhea for the past 2 days and was having some dizziness when he stood. However, the dizziness persisted for an extended period of time matter his position. He does have a history of diabetes, so we checked his sugar. He reports his shoulder being normal. He denies any focal neurological symptoms during this period. His glucose was actually at 59. He has been receiving IV fluids. At time my exam he is resting comfortably in bed with resolution of his symptoms. CT of the brain was done and showed no acute intracranial abnormalities. His carotid Doppler showed no hemodynamically significant stenosis. He did also undergo a transthoracic echocardiogram with no significant abnormalities. Review of Systems All systems: negative Constitutional: Reports as per HPI Past Medical History Past Medical History: Cancer, Heart Failure, CVA/TIA, Hyperlipidemia, Hypertension, Pneumonia, Sleep Apnea/CPAP/BIPAP Additional Past Medical History / Comment(s): rt side dominant HYPOGLYCEMIA. skin cancer removed off penis. hx of URINARY retention/uti/BPH. sleep apnea- uses a cpap machine History of Any Multi-Drug Resistant Organisms: None Reported Past Surgical History: No Surgical Hx Reported Additional Past Surgical History / Comment(s): 04/05/15 LOOP recorder placed, 2014 EGD, colonoscopy 2005 removed one polyp and is scheduled every 4 years, skin cancer removed. Past Anesthesia/Blood Transfusion Reactions: No Reported Reaction Smoking Status: Never smoker - Past Family History Father Family Medical History: Cancer Additional Family Medical History / Comment(s): colon cancer and at age 92 Mother Family Medical History: CVA/TIA, Dementia, Diabetes Mellitus Additional Family Medical History / Comment(s): from complications of CVA at age 76 Brother(s) Family Medical History: Prostate Disorder Additional Family Medical History / Comment(s): 2 brothers had prostate cancer, 1 brother with colon cancer Sister(s) Family Medical History: Cancer Additional Family Medical History / Comment(s): He has 3 sisters. No major medical problems. Daughter(s) Family Medical History: Cancer Additional Family Medical History / Comment(s): COLON Medications and Allergies Home Medications Medication Instructions Recorded Confirmed Type Furosemide [Lasix] 40 mg PO QAM 02/28/15 03/04/18 History Potassium Chloride [Klor-Con 20] 20 meq PO W/SUPPER 04/01/15 03/04/18 History Sertraline [Zoloft] 50 mg PO QAM 03/01/17 03/04/18 History Aspirin EC [Ecotrin Low Dose] 81 mg PO DAILY #30 tablet. 03/03/17 03/04/18 Rx ALPRAZolam [Xanax] 0.5 mg PO DAILY PRN 12/03/17 03/04/18 History Donepezil [Aricept] 10 mg PO DAILY 12/03/17 03/04/18 History NIFEdipine XL [Procardia XL] 30 mg PO DAILY 12/03/17 03/04/18 History Acetaminophen Tab [Tylenol] 500 mg PO Q6H PRN 03/04/18 03/04/18 History Calcium Polycarbophil [Fibercon] 1,250 mg PO BID 03/04/18 03/04/18 History Sennosides [Senna] 8.6 mg PO DAILY PRN 03/04/18 03/04/18 History predniSONE 1 mg PO HS 03/04/18 03/04/18 History predniSONE 5 mg PO HS 03/04/18 03/04/18 History Atorvastatin [Lipitor] 40 mg PO HS #30 tab 03/05/18 Rx Allergies Allergy/AdvReac Type Severity Reaction Status Date / Time sulfamethoxazole AdvReac BLOOD Verified 03/04/18 11:18 [From Bactrim] SUGAR DROPPED trimethoprim [From Bactrim] AdvReac BLOOD Verified 03/04/18 11:18 SUGAR DROPPED Physical Exam Vitals: Vital Signs Temp Pulse Pulse Resp BP BP Pulse Ox 03/05/18 16:00 97.5 F L 57 L 18 167/70 94 L 03/05/18 12:00 98.1 F 50 L 18 164/69 94 L 03/05/18 08:00 97.4 F L 58 L 18 167/74 98 03/05/18 03:41 98.9 F 48 L 16 176/64 97 03/05/18 03:28 49 L 16 03/05/18 00:00 98.0 F 57 L 16 97 03/04/18 23:55 168/82 03/04/18 20:50 154/88 03/04/18 20:22 97.8 F 49 L 16 196/71 97 03/04/18 20:00 48 L 16 Intake and Output 03/05/18 03/05/18 03/05/18 06:59 14:59 22:59 Intake Total 336 Balance 336 Intake: Oral 336 Other: Voiding Method Bedside Commode Bedside Commode Bedside Commode # Voids 4 3 Weight 96.4 kg - Constitutional General appearance: cooperative, no acute distress - EENT Eyes: no abnormal pupil, EOMI, PERRLA, no ptosis ENT: hard of hearing - Neck Neck: normal ROM, no rigidity - Respiratory Respiratory: negative: wheezing, prolonged expiration, prolonged inspiration - Cardiovascular Rhythm: regular - Gastrointestinal General gastrointestinal: no distended, no tenderness - Neurologic The patient is alert awake and oriented 3. Speech and language are normal. There is no facial asymmetry. Strength is 5 out of 5 in bilateral upper and lower extremities. There is no sensory deficit. No tremors or seizures are seen. Cranial nerves II through XII are intact globally. There is no dysmetria or pronator drift. Results CBC & Chem 7: 03/05/18 06:35 03/05/18 06:35 Labs: Abnormal Lab Results - Last 24 Hours (Table) 03/05/18 03/05/18 03/05/18 Range/Units 06:35 06:35 06:59 Neutrophils # 8.4 H (1.3-7.7) k/uL Glucose 72 L (74-99) mg/dL POC Glucose (mg/dL) 67 L (75-99) mg/dL Total Protein 5.6 L (6.3-8.2) g/dL Albumin 3.4 L (3.5-5.0) g/dL 03/05/18 03/05/18 03/05/18 Range/Units 12:46 13:05 17:16 Neutrophils # (1.3-7.7) k/uL Glucose (74-99) mg/dL POC Glucose (mg/dL) 39 L 61 L 65 L (75-99) mg/dL Total Protein (6.3-8.2) g/dL Albumin (3.5-5.0) g/dL 03/05/18 Range/Units 17:36 Neutrophils # (1.3-7.7) k/uL Glucose (74-99) mg/dL POC Glucose (mg/dL) 103 H (75-99) mg/dL Total Protein (6.3-8.2) g/dL Albumin (3.5-5.0) g/dL Microbiology - Last 24 Hours (Table) 03/04/18 11:45 Stool Culture - Preliminary Stool 03/04/18 11:38 Urine Culture - Preliminary Urine,Voided Assessment and Plan (1) Dementia Current Visit: Yes Status: Chronic Code(s): F03.90 - UNSPECIFIED DEMENTIA WITHOUT BEHAVIORAL DISTURBANCE SNOMED Code(s): 62267692 (2) Hypertension Current Visit: Yes Status: Chronic Code(s): I10 - ESSENTIAL (PRIMARY) HYPERTENSION SNOMED Code(s): 68971049 (3) History of stroke Current Visit: Yes Status: Chronic Code(s): Z86.73 - PRSNL HX OF TIA (TIA), AND CEREB INFRC W/O RESID DEFICITS SNOMED Code(s): 712950908 (4) Diarrhea Current Visit: Yes Status: Resolved Code(s): R19.7 - DIARRHEA, UNSPECIFIED SNOMED Code(s): 97780431 (5) Dizziness Current Visit: Yes Status: Resolved Code(s): R42 - DIZZINESS AND GIDDINESS SNOMED Code(s): 773265874 Plan: The patient's symptoms of dizziness have resolved. He has had no focal neurological symptoms. Imaging of the brain showed only an old infarct. He has no residual neurological symptoms from this. His symptoms were likely from dehydration and prolonged period of diarrhea. His symptoms have resolved with IV hydration and rest. An EEG has been performed. Barring any unforeseen abnormalities she would be cleared from a neurological standpoint. I have performed a history and physical on the above patient. I have reviewed the above note, and agree.
[2018-03-05] MEDS: POTASSIUM CHLORIDE ER 20 MEQ TAB.ER PO SCH (17:59)
--- NOTE | 2018-03-05 18:47 | EEG ---
ELECTROENCEPHALOGRAM REPORT DATE OF SERVICE: 03/05/2018. REASON FOR TESTING: Dizziness. DESCRIPTION OF THE PROCEDURE: This EEG was performed using a 21 channel digital electroencephalograph, following international 10-20 system. DESCRIPTION OF THE RECORDING: From the beginning of the tracing and with patient's eyes closed, the background rhythm was mostly consisting of 9 Hz alpha frequency in the posterior occipital leads. Asymmetry is noticed with more significant muscle artifact in the right leads compared to the left. Photic stimulation was performed with a minimal driving response seen. No pathological waves were elicited. Lead artifacts were seen. Hyperventilation was not performed. The patient remains awake throughout the tracing. No epileptiform discharges were seen. His EKG lead showed a regular rate and rhythm. INTERPRETATION: This awake EEG can be considered within normal limits. There was no asymmetry seen. No epileptiform discharges were noticed. The absence of epileptiform discharges does not rule out the diagnosis of epilepsy; therefore, clinical correlation is recommended. MMROMULO / SHONAN: [id number] /
[2018-03-05 18:56] LABS: Glucose,Whole Blood 137 mg/dL (75-99)
[2018-03-05 20:20] LABS: Glucose,Whole Blood 89 mg/dL (75-99)
[2018-03-05] MEDS: predniSONE 5 MG TAB PO SCH (20:26)
[2018-03-05] MEDS: predniSONE 1 MG TAB PO SCH (20:27)
[2018-03-05 23:47] VITALS: RESP 18
[2018-03-06 01:22] LABS: Glucose,Whole Blood 112 mg/dL (75-99)
[2018-03-06 07:06] LABS: Glucose,Whole Blood 57 mg/dL (75-99)
[2018-03-06 07:23] LABS: Glucose,Whole Blood 59 mg/dL (75-99)
[2018-03-06 07:29] LABS: Basophils % (A) 0 %; Eosinophils # (A) 0.2 k/uL (0-0.7); Eosinophils % (A) 1 %; HCT 46.1 % (39.0-53.0); HGB 15.2 gm/dL (13.0-17.5); Lymphocytes # (A) 1.2 k/uL (1.0-4.8); Lymphocytes % (A) 11 %; MCV 87.7 fL (80.0-100.0); Mean Platelet Volume 7.2; Monocytes # (A) 0.5 k/uL (0-1.0); Monocytes % (A) 5 %; Neutrophils # (A) 9.1 k/uL (1.3-7.7); Neutrophils % (A) 82 %; Platelet Count 197 k/uL (150-450); RBC 5.26 m/uL (4.30-5.90); WBC 11.1 k/uL (3.8-10.6)
[2018-03-06] MEDS ORDERED: PANTOPRAZOLE 40 MG TABLET PO SCH (07:30)
[2018-03-06 07:45] LABS: ALT 30 U/L (21-72); AST 24 U/L (17-59); Albumin 3.7 g/dL (3.5-5.0); Alkaline Phosphatase 100 U/L (38-126); Anion Gap 9 mmol/L; Blood Urea Nitrogen 14 mg/dL (9-20); Calcium 9.5 mg/dL (8.4-10.2); Carbon Dioxide 30 mmol/L (22-30); Chloride 101 mmol/L (98-107); Potassium 4.2 mmol/L (3.5-5.1); Sodium 140 mmol/L (137-145); Total Bilirubin 0.5 mg/dL (0.2-1.3)
[2018-03-06 07:47] LABS: Glucose,Whole Blood 81 mg/dL (75-99)
[2018-03-06 07:55] LABS: Glucose 44 mg/dL (74-99)
[2018-03-06] MEDS: ATORVASTATIN 40 MG TAB PO SCH (09:11)
[2018-03-06] MEDS: ASPIRIN 81 MG PO SCH (09:11)
[2018-03-06] MEDS: CALCIUM POLYCARBOPHIL 625 MG TAB PO SCH (09:11)
[2018-03-06] MEDS: NIFEdipine XL 30 MG TAB.ER.24 PO SCH (09:11)
[2018-03-06] MEDS: DONEPEZIL 10 MG TAB PO SCH (09:11)
[2018-03-06] MEDS: SERTRALINE 50 MG TAB PO SCH (09:11)
[2018-03-06] MEDS: HEPARIN SODIUM,PORCINE 5,000 UNIT/ML 1 ML VIAL SQ SCH (09:12)
--- NOTE | 2018-03-06 11:08 | P.DS ---
Providers Date of admission: 03/04/18 14:20 Expected date of discharge: 03/06/18 Attending physician: Ale Minor MD Consults: 03/04/18 18:01 Consult Physician Routine Consulting Provider: Wilian Perea Consult Reason/Comments: CVA Do you want consulting provider notified?: Yes Primary care physician: [facility] Hospital Course: This is a 87 years old male with patient history of skin cancer, congestive heart failure, previous strokes, requiring loop recorder in the past , hyperlipidemia, hypertension, BPH, obstructive sleep apnea on CPAP machine, urinary retention's come into the hospital with dizziness and diarrhea. Patient was having diarrhea for the past 2 days which she states resolved today but continues to have dizziness when he stood up. Patient given 1 L of IV fluids initiated on 75 mL per hour of IV fluids. Urine analysis is negative for any infection. BNP suggestive glucose of 59 but otherwise normal 03/06: Patient was prepared for discharge and was going to have follow-up with Dr. Perea present and EEG was ordered on discharge was held. EEG showed no acute findings. Patient will be discharged home today in stable condition. Discharge Diagnoses: #1 dizziness likely secondary to orthostatic hypotension. #2 history of BPH with urinary retention #3 dementia possible vascular dementia. #4 hypertension #5 generalized anxiety disorder #6 recurrent depression #7 history of previous6 years ago. He was worked up for cryptogenic stroke and atrial fibrillation was ruled out on an event monitor to stop anticoagulation was not recommended at that time #8 sleep apnea on CPAP at night. #9 constipations #10 patient is on chronic steroids unknown why patient is not able to provide any history 11. Chronic episodes of hypoglycemia for which patient has hypoglycemic spells and eats frequent small meals. This has been going on for years. Discharge plan return home Impression and plan of care have been directed as dictated by the signing physician. Ara Villa nurse practitioner acting as scribe for signing physician. Patient Condition at Discharge: Good Plan - Discharge Summary Discharge Rx Participant: No New Discharge Prescriptions: New Atorvastatin [Lipitor] 40 mg PO HS #30 tab Continue Furosemide [Lasix] 40 mg PO QAM Potassium Chloride [Klor-Con 20] 20 meq PO W/SUPPER Sertraline [Zoloft] 50 mg PO QAM Aspirin EC [Ecotrin Low Dose] 81 mg PO DAILY #30 tablet. NIFEdipine XL [Procardia XL] 30 mg PO DAILY Donepezil [Aricept] 10 mg PO DAILY ALPRAZolam [Xanax] 0.5 mg PO DAILY PRN PRN Reason: Anxiety Sennosides [Senna] 8.6 mg PO DAILY PRN PRN Reason: Constipation Acetaminophen Tab [Tylenol] 500 mg PO Q6H PRN PRN Reason: Pain Calcium Polycarbophil [Fibercon] 1,250 mg PO BID predniSONE 1 mg PO HS predniSONE 5 mg PO HS Discharge Medication List Furosemide [Lasix] 40 mg PO QAM 02/28/15 [History] Potassium Chloride [Klor-Con 20] 20 meq PO W/SUPPER 04/01/15 [History] Sertraline [Zoloft] 50 mg PO QAM 03/01/17 [History] Aspirin EC [Ecotrin Low Dose] 81 mg PO DAILY #30 tablet. 03/03/17 [Rx] ALPRAZolam [Xanax] 0.5 mg PO DAILY PRN 12/03/17 [History] Donepezil [Aricept] 10 mg PO DAILY 12/03/17 [History] NIFEdipine XL [Procardia XL] 30 mg PO DAILY 12/03/17 [History] Acetaminophen Tab [Tylenol] 500 mg PO Q6H PRN 03/04/18 [History] Calcium Polycarbophil [Fibercon] 1,250 mg PO BID 03/04/18 [History] Sennosides [Senna] 8.6 mg PO DAILY PRN 03/04/18 [History] predniSONE 1 mg PO HS 03/04/18 [History] predniSONE 5 mg PO HS 03/04/18 [History] Atorvastatin [Lipitor] 40 mg PO HS #30 tab 03/05/18 [Rx] Follow up Appointment(s)/Referral(s): Peyman Martins DO [Primary Care Provider] - 1 Week Patient Instructions/Handouts: Dizziness (ED) Discharge Disposition: HOME SELF-CARE
[2018-03-06 11:54] VITALS: BP 177/59; PULSE 52; TEMP 97.8
[2018-03-06 12:12] LABS: Glucose,Whole Blood 48 mg/dL (75-99)
[2018-03-06 12:29] LABS: Glucose,Whole Blood 62 mg/dL (75-99)
[2018-03-06] MEDS: FUROSEMIDE 40 MG TAB PO SCH (12:31)
[2018-03-06 12:53] LABS: Glucose,Whole Blood 88 mg/dL (75-99)
== END 2018-03-06 14:10 | disposition home or self-care (01) ==
LOC: EC 11:04 → 3OBS 14:20
PROVIDERS: ADMIT Internal Medicine; ATTEND Internal Medicine
DX: R42 Dizziness and giddiness (principal); I95.1 Orthostatic hypotension; N40.1 Benign prostatic hyperplasia with lower urinary tract symptoms; R33.8 Other retention of urine; R11.0 Nausea; E86.0 Dehydration; R19.7 Diarrhea, unspecified; F03.90 Unspecified dementia, unspecified severity, without behavioral disturbance, psychotic disturbance, mood disturbance, and anxiety; I50.9 Heart failure, unspecified; I11.0 Hypertensive heart disease with heart failure; F41.1 Generalized anxiety disorder; F33.9 Major depressive disorder, recurrent, unspecified; G47.33 Obstructive sleep apnea (adult) (pediatric); Z99.89 Dependence on other enabling machines and devices; E78.5 Hyperlipidemia, unspecified; K59.00 Constipation, unspecified; I48.91 Unspecified atrial fibrillation; E11.649 Type 2 diabetes mellitus with hypoglycemia without coma; H91.90 Unspecified hearing loss, unspecified ear; Z86.73 Personal history of transient ischemic attack (TIA), and cerebral infarction without residual deficits; Z87.01 Personal history of pneumonia (recurrent); Z85.828 Personal history of other malignant neoplasm of skin; Z87.440 Personal history of urinary (tract) infections; Z86.010 Personal history of colon polyps; Z80.0 Family history of malignant neoplasm of digestive organs; Z80.42 Family history of malignant neoplasm of prostate; Z79.52 Long term (current) use of systemic steroids; Z79.899 Other long term (current) drug therapy; Z79.82 Long term (current) use of aspirin; Z88.2 Allergy status to sulfonamides; Z95.818 Presence of other cardiac implants and grafts
CPT/HCPCS: 96361 ×6; 96360 ×2; 99285 ×2; 96372 ×3; 36415; 94760; 95816; 93005; 93306; 97162; 97166; 92610; 83880; 80053 ×3; 83605; 84484; 85025 ×3; 82272; 81003; 87086; 87045; 87046; 83036; 71046; 74018; 93880; 70450; G0378 ×3; J1644 ×3; J7512 ×4

== ENCOUNTER 2018-03-27 14:23 | Emergency (ER) | payer MEDICARE, OTHER ==
[2018-03-27 14:32] VITALS: RESP 18
[2018-03-27 14:37] LABS: Glucose,Whole Blood 116 mg/dL (75-99)
--- NOTE | 2018-03-27 14:47 | ED ---
SOB HPI - General Chief Complaint: Shortness of Breath Stated Complaint: SOB Time Seen by Provider: 03/27/18 14:23 Source: patient, family, EMS, RN notes reviewed Mode of arrival: EMS Limitations: physical limitation - History of Present Illness Initial Comments: This is a 87-year-old male who was brought in by EMS after being found to be hypoglycemic and short of breath. Patient was a shower he had very short of breath he follows heart pounding. EMS was called he was found to be with low glucose level he was given D50 with improvement. He also short of breath and did use a CPAP machine to help breathe better now he states he feels back to normal. MD Complaint: shortness of breath - Related Data Home Medications Medication Instructions Recorded Confirmed Furosemide [Lasix] 40 mg PO QAM 02/28/15 03/27/18 Potassium Chloride [Klor-Con 20] 20 meq PO W/SUPPER 04/01/15 03/27/18 Sertraline [Zoloft] 50 mg PO QAM 03/01/17 03/27/18 ALPRAZolam [Xanax] 0.5 mg PO DAILY PRN 12/03/17 03/27/18 Donepezil [Aricept] 10 mg PO HS 12/03/17 03/27/18 NIFEdipine XL [Procardia XL] 30 mg PO DAILY 12/03/17 03/27/18 Calcium Polycarbophil [Fibercon] 1,250 mg PO BID 03/04/18 03/27/18 Sennosides [Senna] 8.6 mg PO DAILY PRN 03/04/18 03/27/18 predniSONE 3 mg PO HS 03/04/18 03/27/18 predniSONE 5 mg PO HS 03/04/18 03/27/18 Tamsulosin [Flomax] 0.4 mg PO DAILY 03/27/18 03/27/18 Previous Rx's Medication Instructions Recorded Aspirin EC [Ecotrin Low Dose] 81 mg PO DAILY #30 tablet. 03/03/17 Atorvastatin [Lipitor] 40 mg PO HS #30 tab 03/05/18 Allergies Allergy/AdvReac Type Severity Reaction Status Date / Time sulfamethoxazole AdvReac BLOOD Verified 03/27/18 14:46 [From Bactrim] SUGAR DROPPED trimethoprim [From Bactrim] AdvReac BLOOD Verified 03/27/18 14:46 SUGAR DROPPED Review of Systems ROS Statement: Those systems with pertinent positive or pertinent negative responses have been documented in the HPI. ROS Other: All systems not noted in ROS Statement are negative. Past Medical History Past Medical History: Cancer, Heart Failure, CVA/TIA, Hyperlipidemia, Hypertension, Pneumonia, Sleep Apnea/CPAP/BIPAP Additional Past Medical History / Comment(s): rt side dominant HYPOGLYCEMIA. skin cancer removed off penis. hx of URINARY retention/uti/BPH. sleep apnea- uses a cpap machine History of Any Multi-Drug Resistant Organisms: None Reported Past Surgical History: No Surgical Hx Reported Additional Past Surgical History / Comment(s): 04/05/15 LOOP recorder placed, 2014 EGD, colonoscopy 2005 removed one polyp and is scheduled every 4 years, skin cancer removed. Past Anesthesia/Blood Transfusion Reactions: No Reported Reaction Past Psychological History: Depression Smoking Status: Never smoker Past Alcohol Use History: None Reported Past Drug Use History: None Reported - Past Family History Father Family Medical History: Cancer Additional Family Medical History / Comment(s): colon cancer and at age 92 Mother Family Medical History: CVA/TIA, Dementia, Diabetes Mellitus Additional Family Medical History / Comment(s): from complications of CVA at age 76 Brother(s) Family Medical History: Prostate Disorder Additional Family Medical History / Comment(s): 2 brothers had prostate cancer, 1 brother with colon cancer Sister(s) Family Medical History: Cancer Additional Family Medical History / Comment(s): He has 3 sisters. No major medical problems. Daughter(s) Family Medical History: Cancer Additional Family Medical History / Comment(s): COLON General Exam - General Exam Comments Initial Comments: This is a well-developed well-nourished awake alert oriented times 3 male Limitations: physical limitation General appearance: alert, in no apparent distress Head exam: Present: atraumatic, normocephalic, normal inspection Eye exam: Present: normal appearance, PERRL, EOMI. Absent: scleral icterus, conjunctival injection, periorbital swelling ENT exam: Present: normal exam, mucous membranes moist Neck exam: Present: normal inspection. Absent: tenderness, meningismus, lymphadenopathy Respiratory exam: Present: normal lung sounds bilaterally. Absent: respiratory distress, wheezes, rales, rhonchi, stridor Cardiovascular Exam: Present: regular rate, normal rhythm, normal heart sounds. Absent: systolic murmur, diastolic murmur, rubs, gallop, clicks GI/Abdominal exam: Present: soft, normal bowel sounds. Absent: distended, tenderness, guarding, rebound, rigid Extremities exam: Present: normal inspection, full ROM, normal capillary refill , pedal edema (Edema that is his usual.). Absent: tenderness, joint swelling, calf tenderness Back exam: Present: normal inspection Neurological exam: Present: alert, oriented X3, CN II-XII intact Psychiatric exam: Present: normal affect, normal mood Skin exam: Present: warm, dry, intact, normal color. Absent: rash Course Vital Signs 03/27/18 14:25 Temperature 97.2 F L Pulse Rate 80 Respiratory 18 Rate Blood Pressure 166/93 O2 Sat by Pulse 96 Oximetry Medical Decision Making - Medical Decision Making I did reassess the patient on several occasions he still much improved feels back to normal I did discuss the findings with him and his family patient will be discharged with follow-up with his doctor as needed and return when necessary the presentation is consistent with a hypoglycemic episode. - Lab Data Result diagrams: 03/27/18 15:25 03/27/18 15:25 Lab Results 03/27/18 03/27/18 03/27/18 Range/Units 14:34 15:21 15:25 WBC (3.8-10.6) k/uL RBC (4.30-5.90) m/uL Hgb (13.0-17.5) gm/dL Hct (39.0-53.0) % MCV (80.0-100.0) fL MCH (25.0-35.0) pg MCHC (31.0-37.0) g/dL RDW (11.5-15.5) % Plt Count (150-450) k/uL Neutrophils % % Lymphocytes % % Monocytes % % Eosinophils % % Basophils % % Neutrophils # (1.3-7.7) k/uL Lymphocytes # (1.0-4.8) k/uL Monocytes # (0-1.0) k/uL Eosinophils # (0-0.7) k/uL Basophils # (0-0.2) k/uL Sodium (137-145) mmol/L Potassium (3.5-5.1) mmol/L Chloride (98-107) mmol/L Carbon Dioxide (22-30) mmol/L Anion Gap mmol/L BUN (9-20) mg/dL Creatinine (0.66-1.25) mg/dL Est GFR (CKD-EPI)AfAm (>60 ml/min/1.73 sqM) Est GFR (CKD-EPI)NonAf (>60 ml/min/1.73 sqM) Glucose (74-99) mg/dL POC Glucose (mg/dL) 116 H 182 H (75-99) mg/dL POC Glu Splunk Consultant ID Antonia Khan Meredith Calcium (8.4-10.2) mg/dL Magnesium (1.6-2.3) mg/dL Total Bilirubin (0.2-1.3) mg/dL AST (17-59) U/L ALT (21-72) U/L Alkaline Phosphatase (38-126) U/L Total Creatine Kinase 35 L (55-170) U/L CK-MB (CK-2) 1.0 (0.0-2.4) ng/mL CK-MB (CK-2) Rel Index 2.9 Troponin I 0.012 (0.000-0.034) ng/mL Total Protein (6.3-8.2) g/dL Albumin (3.5-5.0) g/dL 03/27/18 03/27/18 Range/Units 15:25 15:25 WBC 11.8 H (3.8-10.6) k/uL RBC 5.28 (4.30-5.90) m/uL Hgb 15.6 (13.0-17.5) gm/dL Hct 47.3 (39.0-53.0) % MCV 89.6 (80.0-100.0) fL MCH 29.5 (25.0-35.0) pg MCHC 33.0 (31.0-37.0) g/dL RDW 14.9 (11.5-15.5) % Plt Count 197 (150-450) k/uL Neutrophils % 87 % Lymphocytes % 7 % Monocytes % 5 % Eosinophils % 1 % Basophils % 0 % Neutrophils # 10.3 H (1.3-7.7) k/uL Lymphocytes # 0.8 L (1.0-4.8) k/uL Monocytes # 0.5 (0-1.0) k/uL Eosinophils # 0.1 (0-0.7) k/uL Basophils # 0.0 (0-0.2) k/uL Sodium 139 (137-145) mmol/L Potassium 3.7 (3.5-5.1) mmol/L Chloride 101 (98-107) mmol/L Carbon Dioxide 24 (22-30) mmol/L Anion Gap 14 mmol/L BUN 24 H (9-20) mg/dL Creatinine 0.86 (0.66-1.25) mg/dL Est GFR (CKD-EPI)AfAm 90 (>60 ml/min/1.73 sqM) Est GFR (CKD-EPI)NonAf 78 (>60 ml/min/1.73 sqM) Glucose 151 H (74-99) mg/dL POC Glucose (mg/dL) (75-99) mg/dL POC Glu Splunk Consultant ID Calcium 9.2 (8.4-10.2) mg/dL Magnesium 1.8 (1.6-2.3) mg/dL Total Bilirubin 0.7 (0.2-1.3) mg/dL AST 39 (17-59) U/L ALT 37 (21-72) U/L Alkaline Phosphatase 92 (38-126) U/L Total Creatine Kinase (55-170) U/L CK-MB (CK-2) (0.0-2.4) ng/mL CK-MB (CK-2) Rel Index Troponin I (0.000-0.034) ng/mL Total Protein 6.7 (6.3-8.2) g/dL Albumin 4.2 (3.5-5.0) g/dL - EKG Data -: EKG Interpreted by Me EKG shows normal: sinus rhythm (Sinus rhythm with first-degree AV block rate was 74. Interval to 12 QRS duration 98 daily since QTC 412/457 evidence of left exodeviation minimal voltage criteria for LVH.) - Radiology Data Radiology results: report reviewed (I did review the imaging and report no evidence of acute findings.), image reviewed Disposition Clinical Impression: Hypoglycemia Disposition: HOME SELF-CARE Condition: Good Instructions: Hypoglycemia in a Person with Diabetes (ED), Palpitations (ED) Is patient prescribed a controlled substance at d/c from ED?: No Referrals: Peyman Martins DO [Primary Care Provider] - 1-2 days
[2018-03-27 15:28] LABS: Glucose,Whole Blood 182 mg/dL (75-99)
[2018-03-27 15:40] LABS: Basophils % (A) 0 %; Eosinophils # (A) 0.1 k/uL (0-0.7); Eosinophils % (A) 1 %; HCT 47.3 % (39.0-53.0); HGB 15.6 gm/dL (13.0-17.5); Lymphocytes # (A) 0.8 k/uL (1.0-4.8); Lymphocytes % (A) 7 %; MCH 29.5 pg (25.0-35.0); MCV 89.6 fL (80.0-100.0); Mean Platelet Volume 7.3; Monocytes # (A) 0.5 k/uL (0-1.0); Monocytes % (A) 5 %; Neutrophils # (A) 10.3 k/uL (1.3-7.7); Neutrophils % (A) 87 %; Platelet Count 197 k/uL (150-450); RBC 5.28 m/uL (4.30-5.90); RDW 14.9 % (11.5-15.5); WBC 11.8 k/uL (3.8-10.6)
[2018-03-27 15:45] LABS: Albumin 4.2 g/dL (3.5-5.0); Calcium 9.2 mg/dL (8.4-10.2); Magnesium 1.8 mg/dL (1.6-2.3); Potassium 3.7 mmol/L (3.5-5.1); Total Bilirubin 0.7 mg/dL (0.2-1.3); Total Protein 6.7 g/dL (6.3-8.2)
[2018-03-27 16:06] LABS: Troponin I 0.012 ng/mL (0.000-0.034)
--- NOTE | 2018-03-27 16:18 | XR ---
EXAMINATION TYPE: XR chest 2V DATE OF EXAM: 03/27/2018 COMPARISON: 03/04/2018 HISTORY: Shortness of breath with hypoglycemia. TECHNIQUE: Frontal and lateral views of the chest are obtained. FINDINGS: There are low lung volumes. Crowding of the pulmonary vasculature. Chronic right hemidiaphr agm elevation is noted. Cardiac loop recorder is present. There is no focal air space opacity, pleura l effusion, or pneumothorax seen. The cardiac silhouette size is within normal limits. The osseous structures are intact. There is generalized osseous demineralization, mild degenerative changes of t he thoracic spine, and mild acromio clavicular arthropathy. IMPRESSION: No acute cardiopulmonary process.
[2018-03-27 17:09] VITALS: BP 164/70; PULSE 68; TEMP 97.1
== END 2018-03-27 17:07 | disposition home or self-care (01) ==
LOC: EC 14:23
DX: E16.2 Hypoglycemia, unspecified (principal); I11.0 Hypertensive heart disease with heart failure; I50.9 Heart failure, unspecified; E78.5 Hyperlipidemia, unspecified; G47.30 Sleep apnea, unspecified; Z99.89 Dependence on other enabling machines and devices; F32.9 Major depressive disorder, single episode, unspecified; Z86.010 Personal history of colon polyps; Z79.52 Long term (current) use of systemic steroids; Z79.899 Other long term (current) drug therapy; Z88.1 Allergy status to other antibiotic agents; Z88.2 Allergy status to sulfonamides
CPT/HCPCS: 36415; 71046; 80053; 82550; 82553; 83735; 84484; 85025; 93005; 99285

== ENCOUNTER 2018-11-13 07:27 | Emergency (ER) | payer MEDICARE, OTHER ==
--- NOTE | 2018-11-13 07:55 | ED ---
Abdominal Pain HPI - General Chief Complaint: Abdominal Pain Stated Complaint: Constipation Time Seen by Provider: 11/13/18 07:34 Source: patient, EMS, RN notes reviewed Mode of arrival: EMS Limitations: altered mental status - History of Present Illness Initial Comments: 88-year-old male presents emergency Department via EMS chief complaint of constipation. Patient states that he's been constipated for last 10 days has taken some [id number] medications with no relief. Patient states that abdominal pain is diffuse, he feels distended and bloated. Patient has strong history of constipation. Patient reports no fever, chills, nausea or vomiting. Denies any chest pain or shortness breath no difficulty urinating no flank pain no back pain her usual. - Related Data Home Medications Medication Instructions Recorded Confirmed Furosemide [Lasix] 40 mg PO QAM 02/28/15 11/13/18 Potassium Chloride [Klor-Con 20] 20 meq PO W/LUNCH 04/01/15 11/13/18 Sertraline [Zoloft] 50 mg PO QAM 03/01/17 11/13/18 ALPRAZolam [Xanax] 0.5 mg PO DAILY PRN 12/03/17 11/13/18 Donepezil [Aricept] 10 mg PO HS 12/03/17 11/13/18 Calcium Polycarbophil [Fibercon] 1,250 mg PO BID 03/04/18 11/13/18 Sennosides [Senna] 8.6 mg PO HS 03/04/18 11/13/18 predniSONE 3 mg PO HS 03/04/18 11/13/18 predniSONE 5 mg PO HS 03/04/18 11/13/18 Tamsulosin [Flomax] 0.4 mg PO DAILY 03/27/18 11/13/18 traMADol HCL [traMADol HCL ER] 100 mg PO DAILY 11/13/18 11/13/18 Previous Rx's Medication Instructions Recorded Aspirin EC [Ecotrin Low Dose] 81 mg PO DAILY #30 tablet. 03/03/17 Allergies Allergy/AdvReac Type Severity Reaction Status Date / Time sulfamethoxazole AdvReac BLOOD Verified 11/13/18 09:26 [From Bactrim] SUGAR DROPPED trimethoprim [From Bactrim] AdvReac BLOOD Verified 11/13/18 09:26 SUGAR DROPPED Review of Systems ROS Statement: Those systems with pertinent positive or pertinent negative responses have been documented in the HPI. ROS Other: All systems not noted in ROS Statement are negative. Past Medical History Past Medical History: Cancer, Heart Failure, CVA/TIA, Hyperlipidemia, Hypertension, Pneumonia, Sleep Apnea/CPAP/BIPAP Additional Past Medical History / Comment(s): rt side dominant HYPOGLYCEMIA. skin cancer removed off penis. hx of URINARY retention/uti/BPH. sleep apnea- uses a cpap machine History of Any Multi-Drug Resistant Organisms: None Reported Past Surgical History: No Surgical Hx Reported Additional Past Surgical History / Comment(s): 04/05/15 LOOP recorder placed, 2014 EGD, colonoscopy 2005 removed one polyp and is scheduled every 4 years, skin cancer removed. Past Anesthesia/Blood Transfusion Reactions: No Reported Reaction Past Psychological History: Depression Smoking Status: Never smoker Past Alcohol Use History: None Reported Past Drug Use History: None Reported - Past Family History Father Family Medical History: Cancer Additional Family Medical History / Comment(s): colon cancer and at age 92 Mother Family Medical History: CVA/TIA, Dementia, Diabetes Mellitus Additional Family Medical History / Comment(s): from complications of CVA at age 76 Brother(s) Family Medical History: Prostate Disorder Additional Family Medical History / Comment(s): 2 brothers had prostate cancer, 1 brother with colon cancer Sister(s) Family Medical History: Cancer Additional Family Medical History / Comment(s): He has 3 sisters. No major medical problems. Daughter(s) Family Medical History: Cancer Additional Family Medical History / Comment(s): COLON General Exam Limitations: no limitations General appearance: alert, in no apparent distress Head exam: Present: atraumatic, normocephalic, normal inspection Eye exam: Present: normal appearance, PERRL, EOMI. Absent: scleral icterus, conjunctival injection, periorbital swelling ENT exam: Present: normal exam, mucous membranes moist Respiratory exam: Present: normal lung sounds bilaterally. Absent: respiratory distress, wheezes, rales, rhonchi, stridor Cardiovascular Exam: Present: normal rhythm, bradycardia, normal heart sounds. Absent: systolic murmur, diastolic murmur, rubs, gallop, clicks GI/Abdominal exam: Present: soft, tenderness (Mild diffuse), normal bowel sounds. Absent: distended, guarding, rebound, rigid Back exam: Absent: CVA tenderness (R), CVA tenderness (L) Skin exam: Present: warm, dry, intact, normal color. Absent: rash Course Vital Signs 11/13/18 07:32 Temperature 97.8 F Pulse Rate 51 L Respiratory 18 Rate Blood Pressure 175/70 O2 Sat by Pulse 98 Oximetry Medical Decision Making - Medical Decision Making 88-year-old male presented to emergency department for constipation. Patient was given 2 enemas which have alleviated his symptoms. Patient is on pain meds for his chronic back issues and states that has not been helping. Patient states is increased pain of his back and twisting bending from enema. Disposition Clinical Impression: Abdominal pain, Constipation Disposition: HOME SELF-CARE Condition: Stable Instructions (If sedation given, give patient instructions): Constipation (ED) Additional Instructions: Please return to the Emergency Department if symptoms worsen or any other concerns. Is patient prescribed a controlled substance at d/c from ED?: No Referrals: Peyman Martins DO [Primary Care Provider] - 1-2 days Time of Disposition: 10:07
--- NOTE | 2018-11-13 08:01 | XR ---
EXAMINATION TYPE: XR KUB DATE OF EXAM: 11/13/2018 CLINICAL DATA: 88-year-old male with abdominal pain, H COMPARISON: 03/04/2018 FINDINGS: Supine imaging limited for assessment of free air. No dilated bowel loops. Scattered mild stool is present. 4 mm density in the right mid abdomen could represent a nonobstructive right renal calculus. Degenera tive changes throughout the spine. IMPRESSION: Nonobstructive bowel gas pattern.
[2018-11-13] MEDS ORDERED: traMADol 50 MG TAB PO STA (10:07)
[2018-11-13 10:23] VITALS: BP 150/64; PULSE 47; RESP 16; TEMP 97
== END 2018-11-13 10:33 | disposition home or self-care (01) ==
LOC: EC 07:27
DX: K59.00 Constipation, unspecified (principal); R10.84 Generalized abdominal pain; R14.0 Abdominal distension (gaseous); I11.0 Hypertensive heart disease with heart failure; I50.9 Heart failure, unspecified; E78.5 Hyperlipidemia, unspecified; G47.30 Sleep apnea, unspecified; Z99.89 Dependence on other enabling machines and devices; N40.0 Benign prostatic hyperplasia without lower urinary tract symptoms; F32.9 Major depressive disorder, single episode, unspecified; Z85.828 Personal history of other malignant neoplasm of skin; Z86.73 Personal history of transient ischemic attack (TIA), and cerebral infarction without residual deficits; Z79.52 Long term (current) use of systemic steroids; Z79.899 Other long term (current) drug therapy; Z88.1 Allergy status to other antibiotic agents; Z88.2 Allergy status to sulfonamides
CPT/HCPCS: 74018; 99284

== ENCOUNTER 2018-12-14 13:55 | Inpatient (IN) | payer MEDICARE, OTHER ==
[2018-12-14] MEDS ORDERED: SODIUM CHLORIDE 0.9% 500 ML 500 ML IV STA (14:11)
--- NOTE | 2018-12-14 15:02 | ED ---
General Adult HPI - General Chief complaint: Dizziness Stated complaint: Dizziness Time Seen by Provider: 12/14/18 14:05 Source: EMS, RN notes reviewed, old records reviewed Mode of arrival: ambulatory Limitations: no limitations - History of Present Illness Initial comments: 88-year-old male presenting with 2 complaints. First complaint is lightheaded ness, near syncope. Patient felt quite lightheaded while standing this morning. Denied any associated chest pain or palpitations. Denied abdominal pain. He has had decreased appetite and decreased fluid intake over the past one week. Second complaint is of constipation which is also been present for approximately one week. He's had no stool output for the past one week. Denies fever or chil ls. Denies focal numbness or weakness. Denies vision changes. Denies headache. Denies dysuria or hematuria. - Related Data Home Medications Medication Instructions Recorded Confirmed Furosemide [Lasix] 40 mg PO QAM 02/28/15 12/14/18 Sertraline [Zoloft] 50 mg PO QAM 03/01/17 12/14/18 ALPRAZolam [Xanax] 0.5 mg PO DAILY PRN 12/03/17 12/14/18 Donepezil [Aricept] 10 mg PO HS 12/03/17 12/14/18 Calcium Polycarbophil [Fibercon] 1,250 mg PO BID 03/04/18 12/14/18 Sennosides [Senna] 8.6 mg PO HS 03/04/18 12/14/18 Tamsulosin [Flomax] 0.4 mg PO DAILY 03/27/18 12/14/18 Acetaminophen [Tylenol Extra 500 mg PO Q6H PRN 12/14/18 12/14/18 Strength] Ibuprofen [Motrin Ib] 200 mg PO Q6H PRN 12/14/18 12/14/18 Spironolactone [Aldactone] 50 mg PO DAILY 12/14/18 12/14/18 Previous Rx's Medication Instructions Recorded Aspirin EC [Ecotrin Low Dose] 81 mg PO DAILY #30 tablet. 03/03/17 Allergies Allergy/AdvReac Type Severity Reaction Status Date / Time sulfamethoxazole AdvReac BLOOD Verified 12/14/18 14:48 [From Bactrim] SUGAR DROPPED trimethoprim [From Bactrim] AdvReac BLOOD Verified 12/14/18 14:48 SUGAR DROPPED Review of Systems ROS Statement: Those systems with pertinent positive or pertinent negative responses have been documented in the HPI. ROS Other: All systems not noted in ROS Statement are negative. Past Medical History Past Medical History: Cancer, Heart Failure, CVA/TIA, Hyperlipidemia, Hypertension, Pneumonia, Sleep Apnea/CPAP/BIPAP Additional Past Medical History / Comment(s): rt side dominant HYPOGLYCEMIA. skin cancer removed off penis. hx of URINARY retention/uti/BPH. sleep apnea-uses a cpap machine History of Any Multi-Drug Resistant Organisms: None Reported Past Surgical History: No Surgical Hx Reported Additional Past Surgical History / Comment(s): 04/05/15 LOOP recorder placed, 02/2015 EGD, colonoscopy 2005 removed one polyp and is scheduled every 4 years, skin cancer removed. Past Anesthesia/Blood Transfusion Reactions: No Reported Reaction Past Psychological History: Depression Smoking Status: Never smoker Past Alcohol Use History: None Reported Past Drug Use History: None Reported - Past Family History Father Family Medical History: Cancer Additional Family Medical History / Comment(s): colon cancer and at age 92 Mother Family Medical History: CVA/TIA, Dementia, Diabetes Mellitus Additional Family Medical History / Comment(s): from complications of CVA at age 76 Brother(s) Family Medical History: Prostate Disorder Additional Family Medical History / Comment(s): 2 brothers had prostate cancer, 1 brother with colon cancer Sister(s) Family Medical History: Cancer Additional Family Medical History / Comment(s): He has 3 sisters. No major medical problems. Daughter(s) Family Medical History: Cancer Additional Family Medical History / Comment(s): COLON General Exam Limitations: no limitations General appearance: alert, in no apparent distress Head exam: Present: atraumatic, normocephalic Eye exam: Present: normal appearance, PERRL ENT exam: Present: mucous membranes dry Neck exam: Present: normal inspection. Absent: tenderness, meningismus Respiratory exam: Present: normal lung sounds bilaterally. Absent: respiratory distress, wheezes Cardiovascular Exam: Present: regular rate, normal rhythm GI/Abdominal exam: Present: soft, distended. Absent: tenderness, guarding, rebound, rigid Extremities exam: Present: normal inspection, normal capillary refill. Absent: pedal edema Neurological exam: Present: alert, oriented X3, CN II-XII intact. Absent: motor sensory deficit Psychiatric exam: Present: normal affect, normal mood Skin exam: Present: warm, dry, intact. Absent: cyanosis, diaphoretic Course Vital Signs 12/14/18 12/14/18 13:59 16:51 Temperature 98.6 F Pulse Rate 59 L Pulse Rate [ 61 Sitting] Pulse Rate [ 76 Standing] Pulse Rate [ 61 Supine] Respiratory 16 Rate Blood Pressure 175/79 Blood Pressure 125/81 [Sitting] Blood Pressure 119/78 [Standing] Blood Pressure 167/87 [Supine] O2 Sat by Pulse 100 Oximetry EKG Findings - EKG Comments: EKG Findings:: EKG: Sinus bradycardia, left axis deviation, LVH, rate of 56, DE interval 200, QRS duration 88, QTC [address] segment elevation Medical Decision Making - Medical Decision Making 88-year-old male presenting with lightheadedness, dizziness, secondary complaint constipation. Patient found a blood sugar 51, he has dealt with episodes of hypoglycemia and persistent hypoglycemia in the past, he's been worked up at [facility] according to his daughter who is at bedside. Workup in the emergency department shows EKG sinus bradycardia no ischemic changes. Normal CBC, normal CMP, blood sugar remains in the 50s despite an amp of dextrose and feeding the patient. Chest x-ray obtained, concern for right-sided infiltrate. Patient has not had significant cough or fever. Urinalysis is significant for 35 white cells. Both blood culture and urine cultures are obtained. Patient is covered for community acquired pneumonia and UTI with azithromycin and ceftriaxone. He started on D5 half-normal for persistent hypoglycemia. I did discuss case with Dr. Reyes, will accept admission. Recommended ordering C- peptide, insulin level, and hemoglobin A1c. These will be obtained. - Lab Data Result diagrams: 12/14/18 14:25 12/14/18 14:25 Lab Results 12/14/18 12/14/18 12/14/18 Range/Units 14:25 14:25 14:25 WBC 10.8 H (3.8-10.6) k/uL RBC 5.17 (4.30-5.90) m/uL Hgb 14.9 (13.0-17.5) gm/dL Hct 45.2 (39.0-53.0) % MCV 87.4 (80.0-100.0) fL MCH 28.8 (25.0-35.0) pg MCHC 32.9 (31.0-37.0) g/dL RDW 16.0 H (11.5-15.5) % Plt Count 236 (150-450) k/uL Neutrophils % 80 % Lymphocytes % 10 % Monocytes % 7 % Eosinophils % 2 % Basophils % 0 % Neutrophils # 8.6 H (1.3-7.7) k/uL Lymphocytes # 1.1 (1.0-4.8) k/uL Monocytes # 0.7 (0-1.0) k/uL Eosinophils # 0.2 (0-0.7) k/uL Basophils # 0.0 (0-0.2) k/uL PT 9.5 (9.0-12.0) sec INR 0.9 (<1.2) APTT 26.9 (22.0-30.0) sec Sodium 140 (137-145) mmol/L Potassium 4.1 (3.5-5.1) mmol/L Chloride 104 (98-107) mmol/L Carbon Dioxide 28 (22-30) mmol/L Anion Gap 8 mmol/L BUN 33 H (9-20) mg/dL Creatinine 1.10 (0.66-1.25) mg/dL Est GFR (CKD-EPI)AfAm 69 (>60 ml/min/1.73 sqM) Est GFR (CKD-EPI)NonAf 59 (>60 ml/min/1.73 sqM) Glucose 51 L (74-99) mg/dL POC Glucose (mg/dL) (75-99) mg/dL POC Glu Transmission Line Engineer ID Calcium 9.6 (8.4-10.2) mg/dL Magnesium (1.6-2.3) mg/dL Total Bilirubin 0.8 (0.2-1.3) mg/dL AST 23 (17-59) U/L ALT 21 (21-72) U/L Alkaline Phosphatase 82 (38-126) U/L Troponin I (0.000-0.034) ng/mL Total Protein 6.4 (6.3-8.2) g/dL Albumin 3.9 (3.5-5.0) g/dL Urine Color Urine Appearance (Clear) Urine pH (5.0-8.0) Ur Specific [place] (1.001-1.035) Urine Protein (Negative) Urine Glucose (UA) (Negative) Urine Ketones (Negative) Urine Blood (Negative) Urine Nitrite (Negative) Urine Bilirubin (Negative) Urine Urobilinogen (<2.0) mg/dL Ur Leukocyte Esterase (Negative) Urine RBC (0-5) /hpf Urine WBC (0-5) /hpf Ur Squamous Epith Cells (0-4) /hpf Hyaline Casts (0-2) /lpf Urine Mucus (None) /hpf 12/14/18 12/14/18 12/14/18 Range/Units 14:25 14:25 16:20 WBC (3.8-10.6) k/uL RBC (4.30-5.90) m/uL Hgb (13.0-17.5) gm/dL Hct (39.0-53.0) % MCV (80.0-100.0) fL MCH (25.0-35.0) pg MCHC (31.0-37.0) g/dL RDW (11.5-15.5) % Plt Count (150-450) k/uL Neutrophils % % Lymphocytes % % Monocytes % % Eosinophils % % Basophils % % Neutrophils # (1.3-7.7) k/uL Lymphocytes # (1.0-4.8) k/uL Monocytes # (0-1.0) k/uL Eosinophils # (0-0.7) k/uL Basophils # (0-0.2) k/uL PT (9.0-12.0) sec INR (<1.2) APTT (22.0-30.0) sec Sodium (137-145) mmol/L Potassium (3.5-5.1) mmol/L Chloride (98-107) mmol/L Carbon Dioxide (22-30) mmol/L Anion Gap mmol/L BUN (9-20) mg/dL Creatinine (0.66-1.25) mg/dL Est GFR (CKD-EPI)AfAm (>60 ml/min/1.73 sqM) Est GFR (CKD-EPI)NonAf (>60 ml/min/1.73 sqM) Glucose (74-99) mg/dL POC Glucose (mg/dL) (75-99) mg/dL POC Glu Transmission Line Engineer ID Calcium (8.4-10.2) mg/dL Magnesium 2.2 (1.6-2.3) mg/dL Total Bilirubin (0.2-1.3) mg/dL AST (17-59) U/L ALT (21-72) U/L Alkaline Phosphatase (38-126) U/L Troponin I <0.012 (0.000-0.034) ng/mL Total Protein (6.3-8.2) g/dL Albumin (3.5-5.0) g/dL Urine Color Yellow Urine Appearance Cloudy (Clear) Urine pH 5.5 (5.0-8.0) Ur Specific [place] 1.021 (1.001-1.035) Urine Protein Negative (Negative) Urine Glucose (UA) Negative (Negative) Urine Ketones Negative (Negative) Urine Blood Negative (Negative) Urine Nitrite Negative (Negative) Urine Bilirubin Negative (Negative) Urine Urobilinogen 2.0 (<2.0) mg/dL Ur Leukocyte Esterase Large H (Negative) Urine RBC 1 (0-5) /hpf Urine WBC 35 H (0-5) /hpf Ur Squamous Epith Cells 2 (0-4) /hpf Hyaline Casts 13 H (0-2) /lpf Urine Mucus Rare H (None) /hpf 12/14/18 12/14/18 Range/Units 17:01 19:37 WBC (3.8-10.6) k/uL RBC (4.30-5.90) m/uL Hgb (13.0-17.5) gm/dL Hct (39.0-53.0) % MCV (80.0-100.0) fL MCH (25.0-35.0) pg MCHC (31.0-37.0) g/dL RDW (11.5-15.5) % Plt Count (150-450) k/uL Neutrophils % % Lymphocytes % % Monocytes % % Eosinophils % % Basophils % % Neutrophils # (1.3-7.7) k/uL Lymphocytes # (1.0-4.8) k/uL Monocytes # (0-1.0) k/uL Eosinophils # (0-0.7) k/uL Basophils # (0-0.2) k/uL PT (9.0-12.0) sec INR (<1.2) APTT (22.0-30.0) sec Sodium (137-145) mmol/L Potassium (3.5-5.1) mmol/L Chloride (98-107) mmol/L Carbon Dioxide (22-30) mmol/L Anion Gap mmol/L BUN (9-20) mg/dL Creatinine (0.66-1.25) mg/dL Est GFR (CKD-EPI)AfAm (>60 ml/min/1.73 sqM) Est GFR (CKD-EPI)NonAf (>60 ml/min/1.73 sqM) Glucose (74-99) mg/dL POC Glucose (mg/dL) 59 L 154 H (75-99) mg/dL POC Glu Transmission Line Engineer ID RobertoJse Eduardo Brittany Calcium (8.4-10.2) mg/dL Magnesium (1.6-2.3) mg/dL Total Bilirubin (0.2-1.3) mg/dL AST (17-59) U/L ALT (21-72) U/L Alkaline Phosphatase (38-126) U/L Troponin I (0.000-0.034) ng/mL Total Protein (6.3-8.2) g/dL Albumin (3.5-5.0) g/dL Urine Color Urine Appearance (Clear) Urine pH (5.0-8.0) Ur Specific [place] (1.001-1.035) Urine Protein (Negative) Urine Glucose (UA) (Negative) Urine Ketones (Negative) Urine Blood (Negative) Urine Nitrite (Negative) Urine Bilirubin (Negative) Urine Urobilinogen (<2.0) mg/dL Ur Leukocyte Esterase (Negative) Urine RBC (0-5) /hpf Urine WBC (0-5) /hpf Ur Squamous Epith Cells (0-4) /hpf Hyaline Casts (0-2) /lpf Urine Mucus (None) /hpf Disposition Clinical Impression: Pneumonia, Dehydration, UTI (urinary tract infection), Hypoglycemia Disposition: ADMITTED IP TO THIS [facility] Condition: Stable Is patient prescribed a controlled substance at d/c from ED?: No Referrals: Peyman Martins DO [Primary Care Provider] - 1-2 days Decision to Admit Reason: Admit from EC Decision Date: 12/14/18 Decision Time: 20:21
[2018-12-14 15:08] LABS: Basophils % (A) 0 %; Eosinophils # (A) 0.2 k/uL (0-0.7); Eosinophils % (A) 2 %; HCT 45.2 % (39.0-53.0); HGB 14.9 gm/dL (13.0-17.5); Lymphocytes # (A) 1.1 k/uL (1.0-4.8); Lymphocytes % (A) 10 %; MCH 28.8 pg (25.0-35.0); MCHC 32.9 g/dL (31.0-37.0); MCV 87.4 fL (80.0-100.0); Mean Platelet Volume 7.8; Monocytes # (A) 0.7 k/uL (0-1.0); Monocytes % (A) 7 %; Neutrophils # (A) 8.6 k/uL (1.3-7.7); Neutrophils % (A) 80 %; Platelet Count 236 k/uL (150-450); RBC 5.17 m/uL (4.30-5.90); WBC 10.8 k/uL (3.8-10.6)
[2018-12-14 15:21] LABS: Albumin 3.9 g/dL (3.5-5.0); Calcium 9.6 mg/dL (8.4-10.2); Potassium 4.1 mmol/L (3.5-5.1); Total Bilirubin 0.8 mg/dL (0.2-1.3); Total Protein 6.4 g/dL (6.3-8.2)
--- NOTE | 2018-12-14 15:56 | XR ---
EXAMINATION TYPE: XR chest 2V DATE OF EXAM: 12/14/2018 COMPARISON: 03/27/2018 HISTORY: 88-year-old male with syncope and weakness TECHNIQUE: AP and lateral views FINDINGS: Low lung volumes with crowded vascular markings. Heart borderline in size. There is focal patchy righ t basilar opacity, increased from prior. No pleural effusion. IMPRESSION: Hypoventilatory changes and borderline heart size. Focal right basilar atelectasis or infiltrate. Cor relate for any infectious respiratory signs/symptoms.
--- NOTE | 2018-12-14 15:58 | XR ---
EXAMINATION TYPE: XR KUB portable DATE OF EXAM: 12/14/2018 COMPARISON: 11/13/2018 HISTORY: 88-year-old male with pain and weakness TECHNIQUE: 3 supine views FINDINGS: Supine imaging limited for assessment of free air. There is mild stool in the rectum with air seen th roughout the colon. No dilated small bowel loops. 4 mm density right mid abdomen could represent a nonobstructive right renal calculus. IMPRESSION: Nonobstructive bowel gas pattern. Mild stool in the rectum.
[2018-12-14 16:19] LABS: INR 0.9 (<1.2); Partial Thromboplastin Time 26.9 sec (22.0-30.0); Prothrombin Time 9.5 sec (9.0-12.0)
[2018-12-14] MEDS ORDERED: DEXTROSE 50%-WATER 50 ML SYRINGE IVP STA (16:55)
[2018-12-14 17:11] LABS: Glucose,Whole Blood 59 mg/dL (75-99)
[2018-12-14 17:21] LABS: Appearance,Urine Cloudy (Clear); Bilirubin,Urine Negative (Negative); Blood,Urine Negative (Negative); Color,Urine Yellow; Glucose,Urine (UA) Negative (Negative); Hyaline Casts,Urine 13 /lpf (0-2); Ketones,Urine Negative (Negative); Leukocyte Esterase,Urine Large (Negative); Mucus,Urine Rare /hpf; Nitrite,Urine Negative (Negative); PH, Urine 5.5 (5.0-8.0); Protein,Urine Negative (Negative); RBC,Urine 1 /hpf (0-5); Specific Gravity,Urine 1.021 (1.001-1.035); Squamous Epithelial Cell,Urine 2 /hpf (0-4); WBC,Urine 35 /hpf (0-5)
[2018-12-14] MEDS ORDERED: DEXTROSE 5%-0.45% NACL 1,000 ML IV ONE (19:38)
[2018-12-14 19:40] LABS: Glucose,Whole Blood 154 mg/dL (75-99)
[2018-12-14] MEDS ORDERED: cefTRIAXone IN SWFI 1,000 MG/10 ML SYRINGE IVP STA (20:00)
[2018-12-14] MEDS ORDERED: ACETAMINOPHEN TAB 325 MG TAB PO PRN (20:15)
[2018-12-14] MEDS ORDERED: NALOXONE 0.4 MG/ML 1 ML VIAL IV PRN (20:15)
[2018-12-14] MEDS ORDERED: AZITHROMYCIN 500 MG in SODIUM CHLORIDE 0.9% 250 ML IVPB STA (20:17)
[2018-12-14 21:49] LABS: Glucose,Whole Blood 103 mg/dL (75-99)
[2018-12-14] MEDS: DONEPEZIL 10 MG TAB PO SCH (23:27)
[2018-12-14] MEDS: SENNOSIDES 8.6 MG TAB PO SCH (23:27)
[2018-12-14 23:48] LABS: Glucose,Whole Blood 79 mg/dL (75-99)
[2018-12-14 23:53] VITALS: BMI 34.5
[2018-12-15] MEDS: SODIUM CHLORIDE 0.9% 1,000 ML IV SCH ×2 (00:58→06:14)
[2018-12-15 01:38] LABS: Glucose,Whole Blood 117 mg/dL (75-99)
[2018-12-15 03:25] LABS: Glucose,Whole Blood 95 mg/dL (75-99)
[2018-12-15 05:42] LABS: Glucose,Whole Blood 96 mg/dL (75-99)
[2018-12-15 07:36] LABS: Glucose,Whole Blood 79 mg/dL (75-99)
[2018-12-15] MEDS: SPIRONOLACTONE 25 MG TAB PO SCH (08:51)
[2018-12-15] MEDS: ASPIRIN 81 MG PO SCH (08:51)
[2018-12-15] MEDS: FUROSEMIDE 40 MG TAB PO SCH (08:51)
[2018-12-15 09:37] LABS: Basophils % (A) 0 %; Eosinophils # (A) 0.2 k/uL (0-0.7); Eosinophils % (A) 2 %; Lymphocytes # (A) 0.8 k/uL (1.0-4.8); Lymphocytes % (A) 9 %; MCH 28.5 pg (25.0-35.0); MCV 89.3 fL (80.0-100.0); Mean Platelet Volume 7.7; Monocytes # (A) 0.5 k/uL (0-1.0); Monocytes % (A) 5 %; Neutrophils # (A) 8.1 k/uL (1.3-7.7); Neutrophils % (A) 83 %; Platelet Count 227 k/uL (150-450); RBC 5.26 m/uL (4.30-5.90); RDW 15.5 % (11.5-15.5); WBC 9.8 k/uL (3.8-10.6)
[2018-12-15 09:40] LABS: Glucose,Whole Blood 126 mg/dL (75-99)
[2018-12-15 09:47] LABS: Albumin 3.8 g/dL (3.5-5.0); Calcium 9.6 mg/dL (8.4-10.2); Total Bilirubin 0.8 mg/dL (0.2-1.3); Total Protein 6.3 g/dL (6.3-8.2)
[2018-12-15 11:38] LABS: Glucose,Whole Blood 71 mg/dL (75-99)
[2018-12-15] MEDS: ENOXAPARIN 40 MG/0.4 ML SYRINGE SQ SCH (12:43)
[2018-12-15 12:55] LABS: Hemoglobin A1C 5.3 % (4.0-6.0)
--- NOTE | 2018-12-15 12:57 | P.HPIM ---
History of Present Illness H&P Date: 12/14/18 Chief Complaint: evere dizziness, hypoglycemia, arrhythmia, hypotension, dem entia 88-year-old male with multiple medical problem who had multiple episode of dizziness and presyncopal episode related to arrhythmia palpitation orthostatic hypotension and hypoglycemia was hospitalized last in January 2018 4 severe dizziness and lightheadedness found to have orthostatic hypotension. Also patient apparently was diagnosed hospitalized at [facility] with severe hypoglycemia with full workup done by neurology and endocrinology came back negative. Patient presented to the emergency department at [facility] today with chief complaint of lightheadedness and near syncope with no chest pain or abdominal pain he has decreased appetite and decreased fluid intake also has been having severe constipation with no bowel movement for several days at the time. Surprisingly found to have severe hypoglycemia with blood sugar running in the 40s and 50s despite giving D50 and having him on D5 blood sugar has not improved fast and off. Patient was kept on IV fluid and will be admitted to the hospital. His urine him back very positive for urinary tract infection as well which will be treated. Review of Systems CONSTITUTIONAL: Well-developed no acute respiratory distress.positive dizziness EYES: No icterus sclerae, no conjunctivitis. EARS, NOSE, MOUTH, THROAT, and FACE: No sore throat, lymphadenopathy, carotid bruits or deformity. RESPIRATORY: No SOB cough or wheezes. CARDIOVASCULAR: No CP, Palpitation, PND, Orthopnea, or angina. GASTROINTESTINAL: No Abd pain, Nausea or vomiting, ositive constipation wit slightly with worsening appetite. GENITOURINARY: Negative for Hematuria or UTI, no kidney stones. INTEGUMENT/BREAST: Negative for any muscular injury with mild osteoarthritis.. HEMATOLOGIC/LYMPHATIC: Negative for bleed or purpura. MUSCULOSKELTAL: Negative for Myalgia or arthralgia. NEURLOGICAL: positive lightheadedness wit with presyncope with no other neuro loss. BEHAVIORAL/PSYCH: Negative. ENDOCRINE: Negative. Past Medical History Past Medical History: Cancer, Heart Failure, CVA/TIA, Hyperlipidemia, Hypertension, Pneumonia, Sleep Apnea/CPAP/BIPAP Additional Past Medical History / Comment(s): rt side dominant HYPOGLYCEMIA. skin cancer removed off penis. hx of URINARY retention/uti/BPH. sleep apnea-uses a cpap machine History of Any Multi-Drug Resistant Organisms: None Reported Past Surgical History: No Surgical Hx Reported Additional Past Surgical History / Comment(s): 04/05/15 LOOP recorder placed, 02/2015 EGD, colonoscopy 2005 removed one polyp and is scheduled every 4 years, skin cancer removed. Past Anesthesia/Blood Transfusion Reactions: No Reported Reaction Past Psychological History: Depression Smoking Status: Never smoker Past Alcohol Use History: None Reported Past Drug Use History: None Reported - Past Family History Father Family Medical History: Cancer Additional Family Medical History / Comment(s): colon cancer and at age 92 Mother Family Medical History: CVA/TIA, Dementia, Diabetes Mellitus Additional Family Medical History / Comment(s): from complications of CVA at age 76 Brother(s) Family Medical History: Prostate Disorder Additional Family Medical History / Comment(s): 2 brothers had prostate cancer, 1 brother with colon cancer Sister(s) Family Medical History: Cancer Additional Family Medical History / Comment(s): He has 3 sisters. No major me dical problems. Daughter(s) Family Medical History: Cancer Additional Family Medical History / Comment(s): COLON Medications and Allergies Home Medications Medication Instructions Recorded Confirmed Type Furosemide [Lasix] 40 mg PO QAM 02/28/15 12/14/18 History Sertraline [Zoloft] 50 mg PO QAM 03/01/17 12/14/18 History Aspirin EC [Ecotrin Low Dose] 81 mg PO DAILY #30 tablet. 03/03/17 12/14/18 Rx ALPRAZolam [Xanax] 0.5 mg PO DAILY PRN 12/03/17 12/14/18 History Donepezil [Aricept] 10 mg PO HS 12/03/17 12/14/18 History Calcium Polycarbophil [Fibercon] 1,250 mg PO BID 03/04/18 12/14/18 History Sennosides [Senna] 8.6 mg PO HS 03/04/18 12/14/18 History Tamsulosin [Flomax] 0.4 mg PO DAILY 03/27/18 12/14/18 History Acetaminophen [Tylenol Extra 500 mg PO Q6H PRN 12/14/18 12/14/18 History Strength] Ibuprofen [Motrin Ib] 200 mg PO Q6H PRN 12/14/18 12/14/18 History Spironolactone [Aldactone] 50 mg PO DAILY 12/14/18 12/14/18 History Allergies Allergy/AdvReac Type Severity Reaction Status Date / Time sulfamethoxazole AdvReac BLOOD Verified 12/14/18 14:48 [From Bactrim] SUGAR DROPPED trimethoprim [From Bactrim] AdvReac BLOOD Verified 12/14/18 14:48 SUGAR DROPPED Physical Exam Vitals: Vital Signs Temp Pulse Pulse Pulse Pulse Resp BP 12/14/18 20:30 156/72 12/14/18 20:00 142/101 12/14/18 19:30 69 148/72 12/14/18 19:00 58 L 184/88 12/14/18 18:30 151/73 12/14/18 18:00 65 186/67 12/14/18 17:30 77 176/75 12/14/18 17:00 58 L 167/86 12/14/18 16:51 61 76 61 12/14/18 16:30 59 L 163/72 12/14/18 16:00 58 L 116/70 12/14/18 15:30 64 175/79 12/14/18 15:00 60 175/79 12/14/18 14:30 53 L 175/79 12/14/18 14:04 12/14/18 13:59 98.6 F 59 L 16 175/79 BP BP BP Pulse Ox 12/14/18 20:30 12/14/18 20:00 12/14/18 19:30 12/14/18 19:00 12/14/18 18:30 12/14/18 18:00 97 12/14/18 17:30 12/14/18 17:00 98 12/14/18 16:51 125/81 119/78 167/87 12/14/18 16:30 99 12/14/18 16:00 12/14/18 15:30 98 12/14/18 15:00 95 12/14/18 14:30 96 12/14/18 14:04 99 12/14/18 13:59 100 Intake and Output 12/14/18 12/14/18 12/14/18 06:59 14:59 22:59 Other: Weight 94.1 kg General Appearance: Alert, cooperative, no distress, appears stated age. Mildly overweight Neck HEENT: Supple, no lymphadenopathy, no thyroid enlargement, no carotid bruits. Lungs: Clear to auscultation without crackles or wheezes positive rhonchi no deformity. Chest Wall: Decrease expansion with deep inspiration no tenderness and no deformity was found on exam, no costochondral pain or discomfort. Heart: Regular rate and rhythm, S1, S2 normal, no murmur, rub or gallop. Mild irregularity with 2/6 ejection systolic murmur. Back: Symmetric, no curvature, ROM normal, no CVA tenderness. Abdomen: Soft, non-tender, bowel sounds active all four quadrants, no masses or organomegaly posit discomfort lower abdomin with constipation. Extremities: Extremities normal, atraumatic, no cyanosis or edema. Pulses: 2+ and symmetric. Skin: Skin color, texture, tugor normal, no rashes or lesions. Neurologic: Alert oriented x3 cranial nerves II through XII intact, no motor deficit, no abnormal balance or gait. Results CBC & Chem 7: 12/15/18 07:51 12/15/18 07:51 Labs: Abnormal Lab Results - Last 24 Hours (Table) 12/14/18 12/14/18 12/14/18 Range/Units 14:25 14:25 16:20 WBC 10.8 H (3.8-10.6) k/uL RDW 16.0 H (11.5-15.5) % Neutrophils # 8.6 H (1.3-7.7) k/uL BUN 33 H (9-20) mg/dL Glucose 51 L (74-99) mg/dL POC Glucose (mg/dL) (75-99) mg/dL Ur Leukocyte Esterase Large H (Negative) Urine WBC 35 H (0-5) /hpf Hyaline Casts 13 H (0-2) /lpf Urine Mucus Rare H (None) /hpf 12/14/18 12/14/18 Range/Units 17:01 19:37 WBC (3.8-10.6) k/uL RDW (11.5-15.5) % Neutrophils # (1.3-7.7) k/uL BUN (9-20) mg/dL Glucose (74-99) mg/dL POC Glucose (mg/dL) 59 L 154 H (75-99) mg/dL Ur Leukocyte Esterase (Negative) Urine WBC (0-5) /hpf Hyaline Casts (0-2) /lpf Urine Mucus (None) /hpf Thrombosis Risk Factor Assmnt - DVT/VTE Prophylaxis DVT/VTE Prophylaxis: Pharmacologic Prophylaxis ordered, Mechanical Prophylaxis ordered Assessment and Plan Plan: 1 presyncope: Most likely secondary to hypoglycemia and hypotension with try to treat hypoglycemia at this point keep watching patient with status keep watching patient on rn cardiac. 2 severe hypoglycemia not a clear etiology to exclude any other possibility such as factitious disorders with been on oral hypoglycemic agent or insulin by mistake. Patient C-peptide and insulin levels will be tested patient should be seen endocrinology for further workup. 3 dementia: Has been on Aricept. 4 hypertension: Patient still on calcium channel lv with nifedipine. 5 depression: Continue Zoloft 50 mg daily. 6 obstructive sleep apnea: Has been using CPAP on regular basis. 7 severe BPH: Continue Flomax which still can be causing slight lightheadedness especially patient is orthostatic. 8 chronic edema mostly diastolic congestive heart failure has been on Aldactone and furosemide watch for any side effect of diuretics causing mild hypotension. 9 GI prophylaxis: Patient will be on Pepcid 20 mg daily. 10 DVT prophylaxis: Patient be on heparin 5000 units changes twice a day. CODE STATUS: Full code. Admit patient to inpatient status for 1-2 nights.
[2018-12-15 13:48] LABS: Glucose,Whole Blood 104 mg/dL (75-99)
--- NOTE | 2018-12-15 14:13 | P.PN ---
Subjective Progress Note Date: 12/15/18 88-year-old male with multiple medical problem who had multiple episode of dizziness and presyncopal episode related to arrhythmia palpitation orthostatic hypotension and hypoglycemia was hospitalized last in January 2018 4 severe dizziness and lightheadedness found to have orthostatic hypotension. Also patient apparently was diagnosed hospitalized at [facility] with severe hypoglycemia with full workup done by neurology and endocrinology came back negative. Patient presented to the emergency department at [facility] today with chief complaint of lightheadedness and near syncope with no chest pain or abdominal pain he has decreased appetite and decreased fluid intake also has been having severe constipation with no bowel movement for several days at the time. Surprisingly found to have severe hypoglycemia with blood sugar running in the 40s and 50s despite giving D50 and having him on D5 blood sugar has not improved fast and off. Patient was kept on IV fluid and will be admitted to the hospital. His urine him back very positive for urinary tract infection as well which will be treated. 12/15: Patient has been afebrile, heart rate in the 50s and 60s, blood pressure 148/74, pulse ox 96% on 3 L. Blood sugars today have been running anywhere from 71-126. Urine culture is in progress. Patient has been continued on Rocephin. He is still on IV fluids at D5 half normal saline at 50 mL per hour. We'll plan to monitor overnight and possible discharge by tomorrow depending on blood sugar levels. Review of Systems CONSTITUTIONAL: Denies fever, denies chills.positive dizziness EYES: No icterus sclerae, no conjunctivitis. EARS, NOSE, MOUTH, THROAT, and FACE: No sore throat, lymphadenopathy, carotid bruits or deformity. RESPIRATORY: No SOB cough or wheezes. CARDIOVASCULAR: No CP, Palpitation, PND, Orthopnea, or angina. GASTROINTESTINAL: No Abd pain, Nausea or vomiting, ositive constipation wit slightly with worsening appetite. GENITOURINARY: Negative for Hematuria or UTI, no kidney stones. INTEGUMENT/BREAST: Negative for any muscular injury with mild osteoarthritis.. HEMATOLOGIC/LYMPHATIC: Negative for bleed or purpura. MUSCULOSKELTAL: Negative for Myalgia or arthralgia. NEURLOGICAL: positive lightheadedness wit with presyncope with no other neuro loss. BEHAVIORAL/PSYCH: Negative. ENDOCRINE: Negative. Objective - Vital Signs Vital signs: Vital Signs Temp 97.8 F 12/15/18 06:10 Pulse 55 L 12/15/18 06:10 Resp 18 12/15/18 06:10 BP 148/74 12/15/18 06:10 Pulse Ox 96 12/15/18 08:28 Intake & Output 12/14/18 12/15/18 12/15/18 18:59 06:59 18:59 Weight 94.1 kg Other: # Voids 2 - Exam General Appearance: Alert, cooperative, no distress, appears stated age. Neck HEENT: Supple, no lymphadenopathy, no thyroid enlargement, no carotid bruits. Lungs: Clear to auscultation without crackles or wheezes positive rhonchi no deformity. Chest Wall: Decrease expansion with deep inspiration no tenderness and no deformity was found on exam, no costochondral pain or discomfort. Heart: Regular rate and rhythm, S1, S2 normal, no murmur, rub or gallop. Mild irregularity with 2/6 ejection systolic murmur. Back: Symmetric, no curvature, ROM normal, no CVA tenderness. Abdomen: Soft, non-tender, bowel sounds active all four quadrants, no masses or organomegaly posit discomfort lower abdomin with constipation. Extremities: Extremities normal, atraumatic, no cyanosis or edema. Pulses: 2+ and symmetric. Skin: Skin color, texture, tugor normal, no rashes or lesions. Neurologic: Alert oriented x3 cranial nerves II through XII intact, no motor deficit, no abnormal balance or gait. - Labs CBC & Chem 7: 12/15/18 07:51 12/15/18 07:51 Labs: Abnormal Lab Results - Last 24 Hours (Table) 12/14/18 12/14/18 12/14/18 Range/Units 14:25 14:25 16:20 WBC 10.8 H (3.8-10.6) k/uL RDW 16.0 H (11.5-15.5) % Neutrophils # 8.6 H (1.3-7.7) k/uL Lymphocytes # (1.0-4.8) k/uL BUN 33 H (9-20) mg/dL Glucose 51 L (74-99) mg/dL POC Glucose (mg/dL) (75-99) mg/dL Ur Leukocyte Esterase Large H (Negative) Urine WBC 35 H (0-5) /hpf Hyaline Casts 13 H (0-2) /lpf Urine Mucus Rare H (None) /hpf 12/14/18 12/14/18 12/14/18 Range/Units 17:01 19:37 21:47 WBC (3.8-10.6) k/uL RDW (11.5-15.5) % Neutrophils # (1.3-7.7) k/uL Lymphocytes # (1.0-4.8) k/uL BUN (9-20) mg/dL Glucose (74-99) mg/dL POC Glucose (mg/dL) 59 L 154 H 103 H (75-99) mg/dL Ur Leukocyte Esterase (Negative) Urine WBC (0-5) /hpf Hyaline Casts (0-2) /lpf Urine Mucus (None) /hpf 12/15/18 12/15/18 12/15/18 Range/Units 01:31 07:51 07:51 WBC (3.8-10.6) k/uL RDW (11.5-15.5) % Neutrophils # 8.1 H (1.3-7.7) k/uL Lymphocytes # 0.8 L (1.0-4.8) k/uL BUN 22 H (9-20) mg/dL Glucose (74-99) mg/dL POC Glucose (mg/dL) 117 H (75-99) mg/dL Ur Leukocyte Esterase (Negative) Urine WBC (0-5) /hpf Hyaline Casts (0-2) /lpf Urine Mucus (None) /hpf 12/15/18 12/15/18 12/15/18 Range/Units 09:28 11:26 13:33 WBC (3.8-10.6) k/uL RDW (11.5-15.5) % Neutrophils # (1.3-7.7) k/uL Lymphocytes # (1.0-4.8) k/uL BUN (9-20) mg/dL Glucose (74-99) mg/dL POC Glucose (mg/dL) 126 H 71 L 104 H (75-99) mg/dL Ur Leukocyte Esterase (Negative) Urine WBC (0-5) /hpf Hyaline Casts (0-2) /lpf Urine Mucus (None) /hpf Microbiology - Last 24 Hours (Table) 12/14/18 16:20 Urine Culture - Preliminary Urine,Voided Assessment and Plan Plan: 1 presyncope: Most likely secondary to hypoglycemia and hypotension with try to treat hypoglycemia at this point keep watching patient with status keep watching patient on security monitor. 2 severe hypoglycemia not a clear etiology to exclude any other possibility such as factitious disorders with been on oral hypoglycemic agent or insulin by mistake. Patient C-peptide and insulin levels will be tested patient should be seen endocrinology for further workup. 3 dementia: Has been on Aricept. 4 hypertension: Patient still on calcium channel lv with nifedipine. 5 depression: Continue Zoloft 50 mg daily. 6 obstructive sleep apnea: Has been using CPAP on regular basis. 7 severe BPH: Continue Flomax which still can be causing slight lightheadedness especially patient is orthostatic. 8 chronic edema mostly diastolic congestive heart failure has been on Aldactone and furosemide watch for any side effect of diuretics causing mild hypotension. 9 GI prophylaxis: Patient will be on Pepcid 20 mg daily. 10 DVT prophylaxis: Patient be on heparin 5000 units changes twice a day. CODE STATUS: Full code. Discharge plan: To be determined. PT and OT added. Most likely patient will be ready for discharge on Saturday. Impression and plan of care have been directed as dictated by the signing physician. Ara Villa nurse practitioner acting as scribe for signing physician.
[2018-12-15 16:00] LABS: Glucose,Whole Blood 60 mg/dL (75-99)
[2018-12-15] MEDS: DEXTROSE 5% IN WATER 1,000 ML IV SCH (16:01)
[2018-12-15 16:27] LABS: Glucose,Whole Blood 58 mg/dL (75-99)
[2018-12-15 16:27] LABS: Glucose,Whole Blood 96 mg/dL (75-99)
[2018-12-15 17:50] LABS: Glucose,Whole Blood 98 mg/dL (75-99)
[2018-12-15 18:42] LABS: C-Peptide 11.66 ng/mL (0.81-3.85)
[2018-12-15 19:04] LABS: Insulin Level 25.2 mIU/mL (3.0-25.0)
[2018-12-15 19:35] LABS: Glucose,Whole Blood 100 mg/dL (75-99)
[2018-12-15 21:34] LABS: Glucose,Whole Blood 99 mg/dL (75-99)
[2018-12-15 22:04] VITALS: RESP 20
[2018-12-15] MEDS: SENNOSIDES 8.6 MG TAB PO SCH (22:13)
[2018-12-15] MEDS: DONEPEZIL 10 MG TAB PO SCH (22:14)
[2018-12-15 23:35] LABS: Glucose,Whole Blood 83 mg/dL (75-99)
[2018-12-16 00:24] LABS: Glucose,Whole Blood 98 mg/dL (75-99)
[2018-12-16 01:36] LABS: Glucose,Whole Blood 94 mg/dL (75-99)
[2018-12-16 03:35] LABS: Glucose,Whole Blood 83 mg/dL (75-99)
[2018-12-16 05:43] LABS: Glucose,Whole Blood 83 mg/dL (75-99)
[2018-12-16 07:10] VITALS: BP 155/75; PULSE 66; TEMP 98.3
[2018-12-16] MEDS: DEXTROSE 5% IN WATER 1,000 ML IV SCH (07:14)
[2018-12-16] MEDS: SPIRONOLACTONE 25 MG TAB PO SCH (07:15)
[2018-12-16] MEDS: ASPIRIN 81 MG PO SCH (07:15)
[2018-12-16] MEDS: ENOXAPARIN 40 MG/0.4 ML SYRINGE SQ SCH (07:15)
[2018-12-16] MEDS: FUROSEMIDE 40 MG TAB PO SCH (07:15)
[2018-12-16 07:40] LABS: Glucose,Whole Blood 59 mg/dL (75-99)
[2018-12-16 07:52] LABS: Glucose,Whole Blood 72 mg/dL (75-99)
[2018-12-16] MEDS ORDERED: FAMOTIDINE 20 MG TAB PO SCH (09:00)
[2018-12-16 09:33] LABS: Glucose,Whole Blood 91 mg/dL (75-99)
[2018-12-16 11:28] LABS: Glucose,Whole Blood 75 mg/dL (75-99)
--- NOTE | 2018-12-16 15:25 | P.DS ---
Providers Date of admission: 12/15/18 15:41 Expected date of discharge: 12/16/18 Attending physician: Bill Reyes Primary care physician: [facility] Course: 88-year-old male with multiple medical problem who had multiple episode of dizziness and presyncopal episode related to arrhythmia palpitation orthostatic hypotension and hypoglycemia was hospitalized last in January 2018 4 severe dizziness and lightheadedness found to have orthostatic hypotension. Also patient apparently was diagnosed hospitalized at [facility] with severe hypoglycemia with full workup done by neurology and endocrinology came back negative. Patient presented to the emergency department at [facility] today with chief complaint of lightheadedness and near syncope with no chest pain or abdominal pain he has decreased appetite and decreased fluid intake also has been having severe constipation with no bowel movement for several days at the time. Surprisingly found to have severe hypoglycemia with blood sugar running in the 40s and 50s despite giving D50 and having him on D5 blood sugar has not improved fast and off. Patient was kept on IV fluid and will be admitted to the hospital. His urine him back very positive for urinary tract infection as well which will be treated. 12/15: Patient has been afebrile, heart rate in the 50s and 60s, blood pressure 148/74, pulse ox 96% on 3 L. Blood sugars today have been running anywhere from 71-126. Urine culture is in progress. Patient has been continued on Rocephin. He is still on IV fluids at D5 half normal saline at 50 mL per hour. We'll plan to monitor overnight and possible discharge by tomorrow depending on blood sugar levels. 12/16: Capillary blood glucose at 7:30 in the morning today was 59 with repeat at 72. Patient has been on IV fluids with dextrose 0.45 normal saline. Insulin level is 25.2 and C-peptide 11.66. Patient has seen Dr. Cisneros in the past and has been encouraged to follow-up in the office. I'll discuss case with patient's over the phone and answered all questions. Patient will be discharged home today in stable condition. He has been seen by PT and OT and appears to be safe to return home. Discharge diagnoses: 1 presyncope secondary to hypoglycemia and hypotension 2 severe hypoglycemia not a clear etiology 3 dementia 4 hypertension 5 recurrent depression 6 obstructive sleep apnea 7 severe BPH 8 chronic diastolic heart failure Discharge plan: Home with [facility]. Impression and plan of care have been directed as dictated by the signing physician. Ara Villa nurse practitioner acting as scribe for signing physician. Patient Condition at Discharge: Good Plan - Discharge Summary Discharge Rx Participant: No New Discharge Prescriptions: New Cefuroxime [Ceftin] 250 mg PO BID #14 tablet Continue Furosemide [Lasix] 40 mg PO QAM Sertraline [Zoloft] 50 mg PO QAM Aspirin EC [Ecotrin Low Dose] 81 mg PO DAILY #30 tablet. Donepezil [Aricept] 10 mg PO HS ALPRAZolam [Xanax] 0.5 mg PO DAILY PRN PRN Reason: Anxiety Sennosides [Senna] 8.6 mg PO HS Calcium Polycarbophil [Fibercon] 1,250 mg PO BID Tamsulosin [Flomax] 0.4 mg PO DAILY Spironolactone [Aldactone] 50 mg PO DAILY Acetaminophen [Tylenol Extra Strength] 500 mg PO Q6H PRN PRN Reason: Pain Discontinued Ibuprofen [Motrin Ib] 200 mg PO Q6H PRN PRN Reason: Pain Discharge Medication List Furosemide [Lasix] 40 mg PO QAM 02/28/15 [History] Sertraline [Zoloft] 50 mg PO QAM 03/01/17 [History] Aspirin EC [Ecotrin Low Dose] 81 mg PO DAILY #30 tablet. 03/03/17 [Rx] ALPRAZolam [Xanax] 0.5 mg PO DAILY PRN 12/03/17 [History] Donepezil [Aricept] 10 mg PO HS 12/03/17 [History] Calcium Polycarbophil [Fibercon] 1,250 mg PO BID 03/04/18 [History] Sennosides [Senna] 8.6 mg PO HS 03/04/18 [History] Tamsulosin [Flomax] 0.4 mg PO DAILY 03/27/18 [History] Acetaminophen [Tylenol Extra Strength] 500 mg PO Q6H PRN 12/14/18 [History] Spironolactone [Aldactone] 50 mg PO DAILY 12/14/18 [History] Cefuroxime [Ceftin] 250 mg PO BID #14 tablet 12/16/18 [Rx] Follow up Appointment(s)/Referral(s): [facility], [NON-STAFF] - Peyman Martins DO [Primary Care Provider] - 12/19/18 9:30 am Selin Cisneros MD [STAFF PHYSICIAN] - 12/26/18 12:00 pm Patient Instructions/Handouts: Non-diabetic Hypoglycemia (DC) Discharge Disposition: HOME WITH HOME HEALTH SERVICES
== END 2018-12-16 12:38 | disposition home health service (06) | DRG 641 ==
LOC: EC 13:55 → INTOOBSV 20:22 → 4MS4W 20:22 → OBSVTOIN 12-15 15:41
PROVIDERS: ADMIT Internal Medicine Geriatric Medicine; ATTEND Internal Medicine Geriatric Medicine
DX: E16.2 Hypoglycemia, unspecified (principal); F33.9 Major depressive disorder, recurrent, unspecified; I50.32 Chronic diastolic (congestive) heart failure; N39.0 Urinary tract infection, site not specified; E78.5 Hyperlipidemia, unspecified; E86.0 Dehydration; F03.90 Unspecified dementia, unspecified severity, without behavioral disturbance, psychotic disturbance, mood disturbance, and anxiety; G47.33 Obstructive sleep apnea (adult) (pediatric); I11.0 Hypertensive heart disease with heart failure; K59.00 Constipation, unspecified; B95.2 Enterococcus as the cause of diseases classified elsewhere; N40.1 Benign prostatic hyperplasia with lower urinary tract symptoms; Z79.82 Long term (current) use of aspirin; Z79.899 Other long term (current) drug therapy; Z80.0 Family history of malignant neoplasm of digestive organs; Z80.42 Family history of malignant neoplasm of prostate; Z83.3 Family history of diabetes mellitus; Z85.828 Personal history of other malignant neoplasm of skin; Z86.010 Personal history of colon polyps; Z86.73 Personal history of transient ischemic attack (TIA), and cerebral infarction without residual deficits; Z82.3 Family history of stroke; R33.8 Other retention of urine; Z87.01 Personal history of pneumonia (recurrent); Z99.89 Dependence on other enabling machines and devices; R00.1 Bradycardia, unspecified; Z88.2 Allergy status to sulfonamides; I95.9 Hypotension, unspecified
CPT/HCPCS: 36415; 71046; 74018; 80053; 81001; 83036; 83525; 83735; 84484; 84681; 85025; 85610; 85730; 87040; 87077; 87086; 87186; 93005; 94760; 96361; 96365; 96366; 96375; 99285

== ENCOUNTER 2019-01-20 08:09 | Observation (INO) | payer MEDICARE, OTHER ==
[2019-01-20] MEDS ORDERED: NITROGLYCERIN OINT 1 INCH/GM PACKET TOPICAL STA (08:24)
[2019-01-20] MEDS ORDERED: ASPIRIN 81 MG PO STA (08:24)
--- NOTE | 2019-01-20 08:27 | ED ---
General Adult HPI - General Stated complaint: chest pain Time Seen by Provider: 01/20/19 08:10 Source: RN notes reviewed - History of Present Illness Initial comments: This is an 88-year-old male who presents emergency Department complaining of chest pain. Patient states he gets up to 3 times a day and lasts and every time he got up he had chest pain lasts about 10 minutes until he laid down and started resting. Patient states the chest pain did not radiate anywhere but he does state that he was short of breath. Patient states he had no diaphoresis or nausea. Patient states currently has no chest pain. Patient states definitely laying down resting seemed to improve his pain. Patient denies diabetes or hypertension and does not know about high cholesterol. Patient denies any smoking. Patient states his called the ambulance this morning when he stated that he was having chest pain. Patient denies any recent fever chills per patient denies abdominal pain patient denies any lightheadedness or dizziness. - Related Data Home Medications Medication Instructions Recorded Confirmed Furosemide [Lasix] 40 mg PO QAM 02/28/15 01/20/19 Sertraline [Zoloft] 50 mg PO QAM 03/01/17 01/20/19 ALPRAZolam [Xanax] 0.5 mg PO DAILY 12/03/17 01/20/19 Donepezil [Aricept] 10 mg PO HS 12/03/17 01/20/19 Calcium Polycarbophil [Fibercon] 625 mg PO HS 03/04/18 01/20/19 Sennosides [Senna] 8.6 mg PO BID 03/04/18 01/20/19 Tamsulosin [Flomax] 0.4 mg PO DAILY 03/27/18 01/20/19 Acetaminophen [Tylenol Extra 500 mg PO Q6H PRN 12/14/18 01/20/19 Strength] Spironolactone [Aldactone] 50 mg PO DAILY 12/14/18 01/20/19 Acarbose [Precose] 25 mg PO TID 01/20/19 01/20/19 Polyethylene Glycol 3350 [Miralax] 17 gm PO HS 01/20/19 01/20/19 Vitamin E (Dl,Tocopheryl Acet) 400 unit PO DAILY 01/20/19 01/20/19 [Vitamin E] predniSONE 10 mg PO HS 01/20/19 01/20/19 Previous Rx's Medication Instructions Recorded Aspirin EC [Ecotrin Low Dose] 81 mg PO DAILY #30 tablet. 03/03/17 Allergies Allergy/AdvReac Type Severity Reaction Status Date / Time sulfamethoxazole AdvReac BLOOD Verified 01/20/19 09:17 [From Bactrim] SUGAR DROPPED trimethoprim [From Bactrim] AdvReac BLOOD Verified 01/20/19 09:17 SUGAR DROPPED Review of Systems ROS Statement: Those systems with pertinent positive or pertinent negative responses have been documented in the HPI. ROS Other: All systems not noted in ROS Statement are negative. Past Medical History Past Medical History: Cancer, Heart Failure, CVA/TIA, Hyperlipidemia, Hypertension, Pneumonia, Sleep Apnea/CPAP/BIPAP Additional Past Medical History / Comment(s): rt side dominant HYPOGLYCEMIA. skin cancer removed off penis. hx of URINARY retention/uti/BPH. sleep apnea-uses a cpap machine History of Any Multi-Drug Resistant Organisms: None Reported Past Surgical History: No Surgical Hx Reported Additional Past Surgical History / Comment(s): 04/05/15 LOOP recorder placed, 02/2015 EGD, colonoscopy 2005 removed one polyp and is scheduled every 4 years, skin cancer removed. Past Anesthesia/Blood Transfusion Reactions: No Reported Reaction Past Psychological History: Depression Smoking Status: Never smoker Past Alcohol Use History: None Reported Past Drug Use History: None Reported - Past Family History Father Family Medical History: Cancer Additional Family Medical History / Comment(s): colon cancer and at age 92 Mother Family Medical History: CVA/TIA, Dementia, Diabetes Mellitus Additional Family Medical History / Comment(s): from complications of CVA at age 76 Brother(s) Family Medical History: Prostate Disorder Additional Family Medical History / Comment(s): 2 brothers had prostate cancer, 1 brother with colon cancer Sister(s) Family Medical History: Cancer Additional Family Medical History / Comment(s): He has 3 sisters. No major med ical problems. Daughter(s) Family Medical History: Cancer Additional Family Medical History / Comment(s): COLON General Exam - General Exam Comments Initial Comments: GENERAL: Patient is well-developed and well-nourished. Patient is nontoxic and well- hydrated and is in mild distress. ENT: Neck is soft and supple. No significant lymphadenopathy is noted. Oropharynx is clear. Moist mucous membranes. Neck has full range of motion without eliciting any pain. EYES: The sclera were anicteric and conjunctiva were pink and moist. Extraocular movements were intact and pupils were equal round and reactive to light. Eyelids were unremarkable. PULMONARY: Unlabored respirations. Good breath sounds bilaterally. No audible rales rhonchi or wheezing was noted. CARDIOVASCULAR: There is a regular rate and rhythm without any murmurs gallops or rubs. ABDOMEN: Soft and nontender with normal bowel sounds. No palpable organomegaly was noted. There is no palpable pulsatile mass. SKIN: Skin is clear with no lesions or rashes and otherwise unremarkable. NEUROLOGIC: Patient is alert and oriented x3. Cranial nerves II through XII are grossly intact. Motor and sensory are also intact. Normal speech, volume and content. Symmetrical smile. MUSCULOSKELETAL: Normal extremities with adequate strength and full range of motion. No lower extremity swelling or edema. No calf tenderness. LYMPHATICS: No significant lymphadenopathy is noted PSYCHIATRIC: Normal psychiatric evaluation. Course Vital Signs 01/20/19 01/20/19 01/20/19 08:15 08:21 08:30 Temperature 98.2 F Pulse Rate 50 L 51 L Respiratory 22 18 14 Rate Blood Pressure 184/74 184/74 O2 Sat by Pulse 94 L 93 L Oximetry 01/20/19 01/20/19 01/20/19 08:33 08:36 09:00 Temperature Pulse Rate Respiratory 18 Rate Blood Pressure 170/74 O2 Sat by Pulse 98 Oximetry Medical Decision Making - Medical Decision Making EKG shows sinus rhythm with frequent PVCs at 61 bpm MN interval is 192 QRS is 86 QT interval 440 QTC is 442. Patient's EKG shows no ST segment elevation or depression. Chest x-ray showed possible consolidations in the bases. Patient has no symptoms of pneumonia. Patient was started on heparin because of the elevated troponin and the multiple episodes of chest pain that he had last evening. Patient's primary doctor somewhat I spoke with Dr. Lopez he agreed to admit the patient admitted the patient I consult cardiology continued heparin Nitropaste and aspirin on the floor. - Lab Data Result diagrams: 01/20/19 08:32 01/20/19 08:32 Lab Results 01/20/19 01/20/19 01/20/19 Range/Units 08:32 08:32 08:32 WBC 12.9 H (3.8-10.6) k/uL RBC 5.34 (4.30-5.90) m/uL Hgb 15.5 (13.0-17.5) gm/dL Hct 46.9 (39.0-53.0) % MCV 87.7 (80.0-100.0) fL MCH 29.0 (25.0-35.0) pg MCHC 33.0 (31.0-37.0) g/dL RDW 15.7 H (11.5-15.5) % Plt Count 203 (150-450) k/uL Neutrophils % 83 % Lymphocytes % 9 % Monocytes % 5 % Eosinophils % 1 % Basophils % 0 % Neutrophils # 10.8 H (1.3-7.7) k/uL Lymphocytes # 1.2 (1.0-4.8) k/uL Monocytes # 0.6 (0-1.0) k/uL Eosinophils # 0.2 (0-0.7) k/uL Basophils # 0.0 (0-0.2) k/uL PT 9.5 (9.0-12.0) sec INR 0.9 (<1.2) APTT 25.3 (22.0-30.0) sec Sodium 139 (137-145) mmol/L Potassium 4.6 (3.5-5.1) mmol/L Chloride 104 (98-107) mmol/L Carbon Dioxide 27 (22-30) mmol/L Anion Gap 8 mmol/L BUN 36 H (9-20) mg/dL Creatinine 0.96 (0.66-1.25) mg/dL Est GFR (CKD-EPI)AfAm 81 (>60 ml/min/1.73 sqM) Est GFR (CKD-EPI)NonAf 70 (>60 ml/min/1.73 sqM) Glucose 80 (74-99) mg/dL Calcium 9.6 (8.4-10.2) mg/dL Magnesium 2.1 (1.6-2.3) mg/dL Total Bilirubin 0.8 (0.2-1.3) mg/dL AST 31 (17-59) U/L ALT 34 (21-72) U/L Alkaline Phosphatase 83 (38-126) U/L Troponin I (0.000-0.034) ng/mL Total Protein 6.4 (6.3-8.2) g/dL Albumin 3.9 (3.5-5.0) g/dL 01/20/19 Range/Units 08:32 WBC (3.8-10.6) k/uL RBC (4.30-5.90) m/uL Hgb (13.0-17.5) gm/dL Hct (39.0-53.0) % MCV (80.0-100.0) fL MCH (25.0-35.0) pg MCHC (31.0-37.0) g/dL RDW (11.5-15.5) % Plt Count (150-450) k/uL Neutrophils % % Lymphocytes % % Monocytes % % Eosinophils % % Basophils % % Neutrophils # (1.3-7.7) k/uL Lymphocytes # (1.0-4.8) k/uL Monocytes # (0-1.0) k/uL Eosinophils # (0-0.7) k/uL Basophils # (0-0.2) k/uL PT (9.0-12.0) sec INR (<1.2) APTT (22.0-30.0) sec Sodium (137-145) mmol/L Potassium (3.5-5.1) mmol/L Chloride (98-107) mmol/L Carbon Dioxide (22-30) mmol/L Anion Gap mmol/L BUN (9-20) mg/dL Creatinine (0.66-1.25) mg/dL Est GFR (CKD-EPI)AfAm (>60 ml/min/1.73 sqM) Est GFR (CKD-EPI)NonAf (>60 ml/min/1.73 sqM) Glucose (74-99) mg/dL Calcium (8.4-10.2) mg/dL Magnesium (1.6-2.3) mg/dL Total Bilirubin (0.2-1.3) mg/dL AST (17-59) U/L ALT (21-72) U/L Alkaline Phosphatase (38-126) U/L Troponin I 0.036 H* (0.000-0.034) ng/mL Total Protein (6.3-8.2) g/dL Albumin (3.5-5.0) g/dL Critical Care Time Critical Care Time: Yes Total Critical Care Time: 35 Disposition Clinical Impression: Unstable angina pectoris Disposition: ADMITTED IP TO THIS HOSP Is patient prescribed a controlled substance at d/c from ED?: No Referrals: Peyman Martins DO [Primary Care Provider] - 1-2 days Time of Disposition: 10:05
[2019-01-20 08:42] LABS: Basophils % (A) 0 %; Eosinophils # (A) 0.2 k/uL (0-0.7); Eosinophils % (A) 1 %; HCT 46.9 % (39.0-53.0); HGB 15.5 gm/dL (13.0-17.5); Lymphocytes # (A) 1.2 k/uL (1.0-4.8); Lymphocytes % (A) 9 %; MCV 87.7 fL (80.0-100.0); Mean Platelet Volume 7.3; Monocytes # (A) 0.6 k/uL (0-1.0); Monocytes % (A) 5 %; Neutrophils # (A) 10.8 k/uL (1.3-7.7); Neutrophils % (A) 83 %; Platelet Count 203 k/uL (150-450); RBC 5.34 m/uL (4.30-5.90); RDW 15.7 % (11.5-15.5); WBC 12.9 k/uL (3.8-10.6)
[2019-01-20 08:49] LABS: INR 0.9 (<1.2); Partial Thromboplastin Time 25.3 sec (22.0-30.0); Prothrombin Time 9.5 sec (9.0-12.0)
[2019-01-20 08:59] LABS: Albumin 3.9 g/dL (3.5-5.0); Calcium 9.6 mg/dL (8.4-10.2); Magnesium 2.1 mg/dL (1.6-2.3); Potassium 4.6 mmol/L (3.5-5.1); Total Bilirubin 0.8 mg/dL (0.2-1.3); Total Protein 6.4 g/dL (6.3-8.2)
--- NOTE | 2019-01-20 09:16 | XR ---
EXAMINATION TYPE: XR chest 2V DATE OF EXAM: 01/20/2019 COMPARISON: 12/14/2018 TECHNIQUE: PA and lateral views submitted. HISTORY: Chest pain FINDINGS: Subsegmental consolidation at both lung bases. Heart is enlarged. Atherosclerotic change aorta. Promi nence the upper mediastinum. No pneumothorax. Arthropathy of the shoulders with diffuse osteopenia. A therosclerotic change aorta. IMPRESSION: 1. There is bibasilar consolidation greater on the right correlate for pneumonia.
[2019-01-20] MEDS ORDERED: HEPARIN SODIUM,PORCINE 5,000 UNIT/ML 1 ML VIAL IV ONE (10:10)
[2019-01-20] MEDS ORDERED: NITROGLYCERIN SL TABS 0.4 MG TAB SUBLINGUAL PRN (10:10)
[2019-01-20 11:13] LABS: Glucose,Whole Blood 82 mg/dL (75-99)
[2019-01-20] MEDS: HEPARIN SOD,PORK IN 0.45% NACL 25,000 UNIT in 0.45% NACL 1 250ML.BAG IV SCH (11:36)
--- NOTE | 2019-01-20 12:02 | P.HPIM ---
History of Present Illness H&P Date: 01/20/19 Chief Complaint: Chest pain. This is an 88-year-old male one of Dr. Martins with a previous medical history significant for hypertension and hypertensive cardiovascular disease, hyperlipidemia, history of TIA/CVA in the past, history of chronic diastolic heart failure, history of recurrent syncope post loop recorder amputation about 2 years ago with check every few weeks for possible atrial fibrillation, history of hard of hearing, patient developed to have a significant left-sided chest pain last night before he went to bed associated with increased shortness of breath when he felt his heart pounding at that time, patient went to bed and woke up in the morning he developed another episode of significant left-sided chest pain associated with shortness of breath, patient was brought into the emergency department at [facility] had a twelve-lead EKG did not show any evidence of acute significant abnormalities, cardiac enzymes were obtained, cardiology consultation and the patient was admitted to the hospital for evaluation. Patient was hospitalized recently about a few weeks back for episode of hypoglycemia. Review of Systems Constitutional: Reports weakness, Denies anorexia, Denies chronic headaches, Denies lethargy, Denies malaise Eyes: denies blurred vision, denies bulging eye, denies decreased vision Ears: bilateral: decreased hearing Ears, nose, mouth and throat: Denies dysphagia, Denies neck lump, Denies swelli ng in throat, Denies sore throat Cardiovascular: Reports chest pain, Reports decreased exercise tolerance, Reports dyspnea on exertion, Reports high blood pressure, Reports shortness of breath, Denies rapid heart beat, Denies syncope Respiratory: Denies congestion, Denies cough with sputum, Denies home oxygen, Denies sleep apnea, Denies snoring, Denies wheezing Gastrointestinal: Reports constipation, Denies abdominal pain, Denies bloating, Denies BRBPR, Denies heartburn, Denies melena, Denies nausea, Denies vomiting Genitourinary: Reports nocturia, Reports urinary frequency, Denies dysuria Musculoskeletal: Reports gait dysfunction, Reports low back pain, Reports muscle weakness Musculoskeletal: absent: ankle pain, ankle stiffness, ankle swelling, elbow pain, elbow stiffness, elbow swelling, foot pain, foot stiffness, foot swelling, hand pain, hand stiffness, hand swelling, hip pain, hip stiffness, hip swelling, knee pain, knee stiffness, knee swelling, shoulder pain, shoulder stiffness, shoulder swelling, wrist pain, wrist stiffness, wrist swelling Integumentary: Reports dryness, Denies pruritus, Denies rash Neurological: Reports balance difficulties, Reports gait dysfunction, Reports hearing difficulties, Reports loss of vision, Reports visual changes Psychiatric: Reports anxiety, Reports depression, Reports memory loss, Denies sadness/tearfulness, Denies sleep disturbances, Denies suicidal ideation Endocrine: Denies fatigue, Denies weight change Past Medical History Past Medical History: Asthma, Cancer, Heart Failure, CVA/TIA, Dementia, GERD/Reflux, Hyperlipidemia, Hypertension, Pneumonia, Sleep Apnea/CPAP/BIPAP Additional Past Medical History / Comment(s): Pt recently admitted to [facility] on 12/15/18 with hypoglycemia. 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 Past Anesthesia/Blood Transfusion Reactions: No Reported Reaction Type of Cardiac Device: Loop Device Placement Date:: 03/26/15 Past Psychological History: Depression Additional Psychological History / Comment(s): Pt resides with his spouse of 68y rs. He uses a walker to ambulate. He no longer drives, his daughter drives him to appts. He receives Me[employer] on Wheels and [employer] provides program services assistant to help shower. Pt is currently receiving [facility]. Smoking Status: Never smoker Past Alcohol Use History: None Reported Past Drug Use History: None Reported - Past Family History Father Family Medical History: Cancer Additional Family Medical History / Comment(s): colon cancer and at age 92 Mother Family Medical History: CVA/TIA, Dementia, Diabetes Mellitus Additional Family Medical History / Comment(s): from complications of CVA at age 76 Brother(s) Family Medical History: Prostate Disorder Additional Family Medical History / Comment(s): 4 brothers one had prostate cancer, 1 brother from colon cancer the other one is 90-year-old without medical problems Sister(s) Family Medical History: Cancer Additional Family Medical History / Comment(s): He has 4 sisters. No major medical problems. Daughter(s) Family Medical History: Cancer Additional Family Medical History / Comment(s): COLON Son(s) Family Medical History: No Reported History (Patient has one son no major medical problems.) Medications and Allergies Home Medications Medication Instructions Recorded Confirmed Type Furosemide [Lasix] 40 mg PO QAM 02/28/15 01/20/19 History Sertraline [Zoloft] 50 mg PO QAM 03/01/17 01/20/19 History Aspirin EC [Ecotrin Low Dose] 81 mg PO DAILY #30 tablet. 03/03/17 01/20/19 Rx ALPRAZolam [Xanax] 0.5 mg PO DAILY 12/03/17 01/20/19 History Donepezil [Aricept] 10 mg PO HS 12/03/17 01/20/19 History Calcium Polycarbophil [Fibercon] 625 mg PO HS 03/04/18 01/20/19 History Sennosides [Senna] 8.6 mg PO BID 03/04/18 01/20/19 History Tamsulosin [Flomax] 0.4 mg PO DAILY 03/27/18 01/20/19 History Acetaminophen [Tylenol Extra 500 mg PO Q6H PRN 12/14/18 01/20/19 History Strength] Spironolactone [Aldactone] 50 mg PO DAILY 12/14/18 01/20/19 History Acarbose [Precose] 25 mg PO TID 01/20/19 01/20/19 History Lubiprostone [Amitiza] 8 mcg PO DAILY@1200 01/20/19 01/20/19 History Polyethylene Glycol 3350 [Miralax] 17 gm PO HS 01/20/19 01/20/19 History Vitamin E (Dl,Tocopheryl Acet) 400 unit PO DAILY 01/20/19 01/20/19 History [Vitamin E] predniSONE 10 mg PO HS 01/20/19 01/20/19 History Allergies Allergy/AdvReac Type Severity Reaction Status Date / Time sulfamethoxazole AdvReac BLOOD Verified 01/20/19 09:17 [From Bactrim] SUGAR DROPPED trimethoprim [From Bactrim] AdvReac BLOOD Verified 01/20/19 09:17 SUGAR DROPPED Physical Exam Vitals: Vital Signs Temp Pulse Resp BP Pulse Ox 01/20/19 10:30 52 L 9 L 167/75 98 01/20/19 10:00 50 L 15 167/75 98 01/20/19 09:30 49 L 12 167/75 98 01/20/19 09:00 170/74 01/20/19 08:36 18 01/20/19 08:33 98 01/20/19 08:30 51 L 14 184/74 93 L 01/20/19 08:21 98.2 F 50 L 18 184/74 94 L 01/20/19 08:15 22 Intake and Output 01/19/19 01/20/19 01/20/19 22:59 06:59 14:59 Other: Weight 90.718 kg - Constitutional General appearance: average body habitus, no acute distress - EENT Eyes: anicteric sclerae, EOMI, PERRLA, no ptosis, no scleral icterus, normal appearance ENT: hard of hearing, NA/AT, normal oropharynx, no thrush Ears: bilateral: normal - Neck Neck: no lymphadenopathy, normal ROM, no rigidity, no stridor, no thyromegaly Carotids: bilateral: upstroke normal Thyroid: bilateral: normal size - Respiratory Respiratory: bilateral: diminished, negative: dullness, rales, rhonchi, wheezing, prolonged expiration, prolonged inspiration - Cardiovascular Rhythm: regular Heart sounds: normal: S1, S2 Abnormal Heart Sounds: systolic murmur, no S3 Gallop, no click - Gastrointestinal General gastrointestinal: normal bowel sounds, soft, no splenomegaly, no tenderness, no umbilical hernia, no ventral hernia - Integumentary Integumentary: normal, normal turgor - Neurologic Neurologic: CNII-XII intact - Musculoskeletal Musculoskeletal: generalized weakness, strength equal bilaterally - Psychiatric Psychiatric: A&O x's 3, appropriate affect, no intact judgment & insight Results CBC & Chem 7: 01/20/19 08:32 01/20/19 08:32 Labs: Abnormal Lab Results - Last 24 Hours (Table) 01/20/19 01/20/19 01/20/19 Range/Units 08:32 08:32 08:32 WBC 12.9 H (3.8-10.6) k/uL RDW 15.7 H (11.5-15.5) % Neutrophils # 10.8 H (1.3-7.7) k/uL BUN 36 H (9-20) mg/dL Troponin I 0.036 H* (0.000-0.034) ng/mL Thrombosis Risk Factor Assmnt - DVT/VTE Prophylaxis DVT/VTE Prophylaxis: Pharmacologic Prophylaxis ordered, Mechanical Prophylaxis ordered - Choose All That Apply Any of the Below Risk Factors Present?: Yes Other Risk Factors: Yes Each Risk Factor Represents 2 Points: Malignancy Each Risk Factor Represents 3 Points: Age 75 years or older Other congenital or acquired thrombophilia - If yes, enter type in comment: No Thrombosis Risk Factor Assessment Total Risk Factor Score: 5 Thrombosis Risk Factor Assessment Level: High Risk Assessment and Plan Assessment: Assessment and plan: 1. Chest pain. Admit the patient to hospital monitor the patient cardiac enzymes, patient did have an episode of palpitations along with shortness breath during the episode of chest pain, patient did have a loop recorder placement 2 years ago so far no evidence of arrhythmias according to the daughter, patient did have an echocardiogram at Dr. Bhatt's office about a week ago we will get a copy of that, cardiac enzymes 3, aspirin 325 mg orally once every day, nitroglycerin paste 1 inch every 6 hours, heparin drip, monitor the patient very closely cardiology consultation will be obtained. 2. Hypertension and hypertensive cardiovascular disease. Currently the patient off his blood pressure medication continue with spironolactone 50 mg orally once every day. 3. Hyperlipidemia. Patient is not on statins. 4. Enlarged prostate. Continue Flomax 0.4 mg orally once every day. 5. History of CVA/TIA with possible proximal atrial fibrillation post loop recorder implantation. Monitor the patient over the next 24 hours so far no evidence of arrhythmias. 6. Chronic diastolic heart failure. Continue patient on Lasix 40 mg orally once every day as well as spironolactone 50 mg orally once every day. 7. Vascular dementia. Continue patient on Aricept 10 mg orally once every day. 8. Hard of hearing. Stable. 9. Hypoglycemia. Stable. 10. Depression. Continue Zoloft 50 mg orally once every day. 11. DVT prophylaxis. Patient is currently on heparin drip. 12. GI prophylaxis. Continue PPI. 13. Admit to inpatient hospital length of stay 2 midnights. 14. Patient is full code.
[2019-01-20] MEDS: NITROGLYCERIN OINT 1 INCH/GM PACKET TOPICAL SCH ×3 (15:41→22:45)
[2019-01-20] MEDS ORDERED: ACETAMINOPHEN TAB 500 MG TAB PO PRN (18:53)
[2019-01-20] MEDS ORDERED: HEPARIN SODIUM,PORCINE 5,000 UNIT/ML 1 ML VIAL IV PRN (20:33)
[2019-01-20] MEDS: SENNOSIDES 8.6 MG TAB PO SCH (20:41)
[2019-01-20] MEDS ORDERED: POLYETHYLENE GLYCOL 3350 17 GM POWD.PACK PO SCH (21:00)
[2019-01-20] MEDS ORDERED: CALCIUM POLYCARBOPHIL 625 MG TAB PO SCH (21:00)
[2019-01-20] MEDS ORDERED: predniSONE 10 MG TAB PO SCH (21:00)
[2019-01-20] MEDS ORDERED: DONEPEZIL 10 MG TAB PO SCH (21:00)
[2019-01-21 01:55] LABS: Cholesterol 262 mg/dL (<200); HDL Cholesterol 43 mg/dL (40-60); LDL Cholesterol,Calculated 175 mg/dL (0-99); Triglycerides 219 mg/dL (<150)
[2019-01-21 02:47] LABS: Glucose,Whole Blood 111 mg/dL (75-99)
[2019-01-21 06:11] LABS: Glucose,Whole Blood 97 mg/dL (75-99)
[2019-01-21] MEDS: NITROGLYCERIN OINT 1 INCH/GM PACKET TOPICAL SCH ×3 (06:48→18:37)
[2019-01-21] MEDS: ACARBOSE 25 MG TAB PO SCH ×3 (06:48→18:37)
[2019-01-21 06:56] LABS: Basophils % (A) 0 %; Eosinophils # (A) 0.1 k/uL (0-0.7); Eosinophils % (A) 1 %; HCT 44.2 % (39.0-53.0); HGB 14.5 gm/dL (13.0-17.5); Lymphocytes # (A) 1.1 k/uL (1.0-4.8); Lymphocytes % (A) 10 %; MCH 29.2 pg (25.0-35.0); MCHC 32.9 g/dL (31.0-37.0); MCV 88.6 fL (80.0-100.0); Monocytes # (A) 0.6 k/uL (0-1.0); Monocytes % (A) 6 %; Neutrophils # (A) 9.1 k/uL (1.3-7.7); Neutrophils % (A) 83 %; Platelet Count 185 k/uL (150-450); RBC 4.99 m/uL (4.30-5.90); RDW 15.2 % (11.5-15.5)
[2019-01-21 08:04] LABS: Anion Gap 6 mmol/L; Blood Urea Nitrogen 33 mg/dL (9-20); Calcium 9.1 mg/dL (8.4-10.2); Carbon Dioxide 28 mmol/L (22-30); Chloride 103 mmol/L (98-107); Glucose 93 mg/dL (74-99); Potassium 4.4 mmol/L (3.5-5.1); Sodium 137 mmol/L (137-145)
[2019-01-21 08:33] VITALS: PULSE 63; RESP 17; TEMP 98
[2019-01-21] MEDS ORDERED: ALPRAZolam 0.5 MG TAB PO SCH (09:00)
[2019-01-21] MEDS ORDERED: ASPIRIN 325 MG TAB PO SCH (09:00)
[2019-01-21] MEDS ORDERED: TAMSULOSIN 0.4 MG CAP.ER.24H PO SCH (09:00)
[2019-01-21] MEDS ORDERED: FUROSEMIDE 40 MG TAB PO SCH (09:00)
[2019-01-21] MEDS ORDERED: VITAMIN E (DL,TOCOPHERYL ACET) 400 UNIT CAP PO SCH (09:00)
[2019-01-21] MEDS ORDERED: SPIRONOLACTONE 25 MG TAB PO SCH (09:00)
[2019-01-21] MEDS ORDERED: SERTRALINE 50 MG TAB PO SCH (09:00)
--- NOTE | 2019-01-21 09:42 | P.CRDCN ---
History of Present Illness Consult date: 01/21/19 Requesting physician: Yany Lopez Consult reason: shortness of breath Chief complaint: Shortness of breath History of present illness: This is a pleasant 88-year-old gentleman who follows regularly with Dr. Aguilar in the office. He has past medical history significant for hypertension, hyperlipidemia, prior CVA, history of chronic diastolic congestive heart failure, recurrent syncope, post loop recorder implantation about 2 years ago, history of sleep apnea, he presented to the hospital with symptoms of shortness of breath and difficulty in taking a deep breath. According to the patient, he denies having any chest discomfort, no pressure no heaviness, just found it hard to breathe. Chest x-ray on admission here showed bi- basilar consolidation, greater on the right suggestive of possible pneumonia. His EKG showed a sinus bradycardia with occasional PVCs. I pressure on arrival 184/70 with a heart rate in the 50s, 94% on room air. Afebrile. Blood pressure this morning 146/60 with a heart rate in the 60s, 97% on room air. White blood cell count 12.9 on admission, 11 this morning, hemoglobin 14.5 with a platelet count of 185. Sodium 137, potassium 4.4, BUN 33 and creatinine 0.8. Troponins 0.03, 0.08, 0.09. Cholesterol 262 with an LDL of 175 and triglycerides are 219 HDL 43. At the time of my examination this morning, patient is sitting up in his chair at bedside, denies any shortness of breath and not having any chest pain. Past Medical History Past Medical History: Asthma, Cancer, Heart Failure, CVA/TIA, Dementia, GERD/Reflux, Hyperlipidemia, Hypertension, Pneumonia, Sleep Apnea/CPAP/BIPAP Additional Past Medical History / Comment(s): Pt recently admitted to [facility] on 12/15/18 with hypoglycemia. 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 Past Anesthesia/Blood Transfusion Reactions: No Reported Reaction Type of Cardiac Device: Loop Device Placement Date:: 03/26/15 Past Psychological History: Depression Additional Psychological History / Comment(s): Pt resides with his spouse of 68yrs. He uses a walker to ambulate. He no longer drives, his daughter drives him to appts. He receives [employer] Whe[employer] and [employer] provides office services assistant to help shai wer. Pt is currently receiving [facility]. Smoking Status: Never smoker Past Alcohol Use History: None Reported Past Drug Use History: None Reported - Past Family History Son(s) Family Medical History: No Reported History (Patient has one son no major medical problems.) Father Family Medical History: Cancer Additional Family Medical History / Comment(s): colon cancer and at age 92 Mother Family Medical History: CVA/TIA, Dementia, Diabetes Mellitus Additional Family Medical History / Comment(s): from complications of CVA at age 76 Brother(s) Family Medical History: Prostate Disorder Additional Family Medical History / Comment(s): 4 brothers one had prostate cancer, 1 brother from colon cancer the other one is 90-year-old without medical problems Sister(s) Family Medical History: Cancer Additional Family Medical History / Comment(s): He has 4 sisters. No major medical problems. Daughter(s) Family Medical History: Cancer Additional Family Medical History / Comment(s): COLON Medications and Allergies Home Medications Medication Instructions Recorded Confirmed Type Furosemide [Lasix] 40 mg PO QAM 02/28/15 01/20/19 History Sertraline [Zoloft] 50 mg PO M 03/01/17 01/20/19 History Aspirin EC [Ecotrin Low Dose] 81 mg PO DAILY #30 tablet. 03/03/17 01/20/19 Rx ALPRAZolam [Xanax] 0.5 mg PO DAILY 12/03/17 01/20/19 History Donepezil [Aricept] 10 mg PO HS 12/03/17 01/20/19 History Calcium Polycarbophil [Fibercon] 625 mg PO HS 03/04/18 01/20/19 History Sennosides [Senna] 8.6 mg PO BID 03/04/18 01/20/19 History Tamsulosin [Flomax] 0.4 mg PO DAILY 03/27/18 01/20/19 History Acetaminophen [Tylenol Extra 500 mg PO Q6H PRN 12/14/18 01/20/19 History Strength] Spironolactone [Aldactone] 50 mg PO DAILY 12/14/18 01/20/19 History Acarbose [Precose] 25 mg PO TID 01/20/19 01/20/19 History Lubiprostone [Amitiza] 8 mcg PO DAILY@1200 01/20/19 01/20/19 History Polyethylene Glycol 3350 [Miralax] 17 gm PO HS 01/20/19 01/20/19 History Vitamin E (Dl,Tocopheryl Acet) 400 unit PO DAILY 01/20/19 01/20/19 History [Vitamin E] predniSONE 10 mg PO HS 01/20/19 01/20/19 History Allergies Allergy/AdvReac Type Severity Reaction Status Date / Time sulfamethoxazole AdvReac BLOOD Verified 01/20/19 09:17 [From Bactrim] SUGAR DROPPED trimethoprim [From Bactrim] AdvReac BLOOD Verified 01/20/19 09:17 SUGAR DROPPED Physical Exam Vitals: Vital Signs Temp Pulse Pulse Resp BP BP Pulse Ox 01/21/19 08:00 98.0 F 63 17 146/64 97 01/21/19 03:06 97.7 F 62 16 171/81 94 L 01/20/19 23:41 56 L 18 125/60 95 01/20/19 20:00 97.8 F 56 L 18 135/61 95 01/20/19 19:23 95 01/20/19 16:00 55 L 16 147/65 94 L 01/20/19 15:55 55 L 18 129/69 95 01/20/19 15:43 55 L 18 129/69 95 01/20/19 11:00 48 L 18 159/75 99 01/20/19 10:30 52 L 9 L 167/75 98 01/20/19 10:00 50 L 15 167/75 98 01/20/19 09:30 49 L 12 167/75 98 Intake and Output 01/20/19 01/21/19 01/21/19 22:59 06:59 14:59 Intake Total 270.973 93.061 600 Balance 270.973 93.061 600 Intake: Intake, IV Titration 90.973 93.061 Amount Heparin Sod,Pork in 0.45% 90.973 93.061 NaCl 25,000 unit In 0.45 % NaCl 1 250ml.bag @ 11. 02 UNITS/KG/HR 9.997 mls/ hr IV .Q24H [facility] Rx#: [id number] Oral 180 600 Other: Voiding Method Bedside Commode Bedside Commode # Voids 1 1 1 # Bowel Movements 1 Weight 89.5 kg PHYSICAL EXAMINATION: GENERAL: 88-year-old gentleman in no acute distress at the time of my examination HEENT: Head is atraumatic, normocephalic. Pupils equal, round. Sclera anicter ic. Conjunctiva are clear. Mucous membranes of the mouth are moist. Neck is supple. There is no elevated jugular venous pressure. No carotid bruit is heard. HEART EXAMINATION: Heart S1 S2 1 systolic murmur is heard CHEST EXAMINATION: Lungs reveal diminished air entry to bilateral bases ABDOMEN: Soft, nontender. Bowel sounds are heard. No organomegaly noted. EXTREMITIES: 2+ peripheral pulses with no evidence of peripheral edema and no calf tenderness noted. NEUROLOGIC patient is awake, alert and oriented 3 . . Results 01/21/19 06:25 01/21/19 06:25 Cardiac Enzymes 01/20/19 01/20/19 01/20/19 Range/Units 08:32 14:36 19:24 Troponin I 0.036 H* 0.086 H* 0.090 H* (0.000-0.034) ng/mL Coagulation 01/20/19 01/21/19 Range/Units 19:24 02:54 APTT 28.1 136.2 H* (22.0-30.0) sec Lipids 01/20/19 Range/Units 08:32 Triglycerides 219 H (<150) mg/dL Cholesterol 262 H (<200) mg/dL HDL Cholesterol 43 (40-60) mg/dL CBC 01/21/19 Range/Units 06:25 WBC 11.0 H (3.8-10.6) k/uL RBC 4.99 (4.30-5.90) m/uL Hgb 14.5 (13.0-17.5) gm/dL Hct 44.2 (39.0-53.0) % Plt Count 185 (150-450) k/uL Comprehensive Metabolic Panel 01/21/19 Range/Units 06:25 Sodium 137 (137-145) mmol/L Potassium 4.4 (3.5-5.1) mmol/L Chloride 103 (98-107) mmol/L Carbon Dioxide 28 (22-30) mmol/L BUN 33 H (9-20) mg/dL Creatinine 0.83 (0.66-1.25) mg/dL Glucose 93 (74-99) mg/dL Calcium 9.1 (8.4-10.2) mg/dL Current Medications Generic Name Dose Route Start Last Admin Trade Name Freq PRN Reason Stop Dose Admin Acarbose 25 mg 01/21/19 07:30 01/21/19 06:48 Precose PO 25 mg TID-W/MEALS [facility] Administration Acetaminophen 500 mg 01/20/19 18:53 Tylenol Tab PO Q6H PRN Mild Pain Alprazolam 0.5 mg 01/21/19 09:00 Xanax PO DAILY [facility] Aspirin 325 mg 01/21/19 09:00 Aspirin PO DAILY [facility] Calcium Polycarbophil 625 mg 01/20/19 21:00 01/20/19 20:41 Fibercon PO 625 mg HS [facility] Administration Donepezil HCl 10 mg 01/20/19 21:00 01/20/19 20:41 Aricept PO 10 mg HS [facility] Administration Furosemide 40 mg 01/21/19 09:00 Lasix PO QAM [facility] Heparin Sodium (Porcine) 0 unit 01/20/19 20:33 01/20/19 20:42 Heparin IV 4,000 unit PER PROTOCOL PRN Administration Low PTT Protocol Heparin Sodium/Sodium Chloride 250 mls @ 9.997 mls/hr 01/20/19 10:15 01/21/19 05:01 25,000 unit/ Sodium Chloride IV 11.02 units/kg/hr .Q24H [facility] 9.997 mls/hr Titration Protocol 11.02 UNITS/KG/HR Nitroglycerin 1 inch 01/20/19 12:00 01/21/19 06:48 Nitro-Bid Oint TOPICAL 1 inch Q6HR [facility] Administration Nitroglycerin 0.4 mg 01/20/19 10:10 Nitrostat SUBLINGUAL Q5M PRN Chest Pain Lubiprostone [ 8 mcg 01/21/19 12:00 Amitiza] 8 Mcg PO DAILY@1200 [facility] Polyethylene Glycol 17 gm 01/20/19 21:00 01/20/19 20:41 Miralax PO Not Given HS [facility] Prednisone 10 mg 01/20/19 21:00 01/20/19 20:41 PO 10 mg HS [facility] Administration Senna 8.6 mg 01/20/19 21:00 01/20/19 20:41 Senokot PO 8.6 mg BID [facility] Administration Sertraline HCl 50 mg 01/21/19 09:00 Zoloft PO QAM [facility] Spironolactone 50 mg 01/21/19 09:00 Aldactone PO DAILY [facility] Tamsulosin HCl 0.4 mg 01/21/19 09:00 Flomax PO DAILY [facility] Vitamin E 400 unit 01/21/19 09:00 Vitamin E PO DAILY [facility] Intake and Output 01/20/19 01/21/19 01/21/19 22:59 06:59 14:59 Intake Total 270.973 93.061 600 Balance 270.973 93.061 600 Intake: Intake, IV Titration 90.973 93.061 Amount Heparin Sod,Pork in 0.45% 90.973 93.061 NaCl 25,000 unit In 0.45 % NaCl 1 250ml.bag @ 11. 02 UNITS/KG/HR 9.997 mls/ hr IV .Q24H [facility] Rx#: [id number] Oral 180 600 Other: Voiding Method Bedside Commode Bedside Commode # Voids 1 1 1 # Bowel Movements 1 Weight 89.5 kg 01/21/19 06:25 01/21/19 06:25 EKG Interpretations (text) EKG shows a sinus rhythm with occasional to frequent PVCs Assessment and Plan Plan: Assessment and plan #1 shortness of breath, patient denies having any chest discomfort, however he does have mild dementia. EKG shows a normal sinus rhythm with frequent PVCs, no acute changes. Troponins 0.03, 0.08, 0.09. Patient does have a loop recorder in place no documented arrhythmias thus far over the past 2 years. #2 hypertension #3 hyperlipidemia #4 prior CVA #5 chronic diastolic heart failure #6 vascular dementia #7 heard of hearing #8 depression Plan Patient did have an echocardiogram with Doppler study performed just over a week ago in the office we will attempt to get a record of that. We will start the patient on a statin, decrease his aspirin to 81 mg daily, patient is noted to have some episodes of bradycardia, therefore he is not on a beta lv at this time. His most recent echo was performed in February of last year and revealed a normal left ventricular systolic function at that time, moderate aortic stenosis. We will start the patient on some Norvasc to optimize blood pressure control. Further recommendations to follow. DNP note has been reviewed, I agree with a documented findings and plan of care. Patient was seen and examined.
[2019-01-21] MEDS ORDERED: amLODIPine 5 MG TAB PO SCH (09:45)
[2019-01-21] MEDS: SENNOSIDES 8.6 MG TAB PO SCH (10:16)
--- NOTE | 2019-01-21 10:57 | ECHOF ---
Referral Reason:sob MEASUREMENTS -------- HEIGHT: 165.1 cm WEIGHT: 89.4 kg BP: 146/64 RVIDd: 3.5 cm (< 3.3) IVSd: 1.4 cm (0.6 - 1.1) LVIDd: 4.9 cm (3.9 - 5.3) LVPWd: 1.3 cm (0.6 - 1.1) IVSs: 1.9 cm LVIDs: 3.0 cm LVPWs: 1.6 cm LA Diam: 3.3 cm (2.7 - 3.8) LAESV Index (A-L): 14.29 ml/m Ao Diam: 3.4 cm (2.0 - 3.7) AV Cusp: 1.7 cm (1.5 - 2.6) MV EXCURSION: 17.007 mm (> 18.000) MV EF SLOPE: 35 mm/s (70 - 150) EPSS: 0.3 cm MV E Ezra: 0.55 m/s MV DecT: 592 ms MV A Ezra: 1.01 m/s MV E/A Ratio: 0.55 AV maxP.29 mmHg AV meanP.65 mmHg RAP: 5.00 mmHg RVSP: 32.20 mmHg FINDINGS -------- Sinus rhythm. This was a technically adequate study. The left ventricular size is normal. There is moderate concentric left ventricular hypertrophy. O verall left ventricular systolic function is normal with, an EF between 55 - 60 %. The right ventricle is mildly enlarged. Normal LA size by volume 22+/-6 ml/m2. The right atrium is normal in size. There is mild aortic valve sclerosis. There is moderate aortic stenosis present. Peak/mean gradie nt across the Aortic Valve is 38.29mmHg / 22.65mmHg. Mild mitral annular calcification present. Mild tricuspid regurgitation present. Right ventricular systolic pressure is normal at < 35 mmHg. The pulmonic valve was not well visualized. The aortic root size is normal. Normal inferior vena cava with normal inspiratory collapse consistent with estimated right atrial pre ssure of 5 mmHg. There is no pericardial effusion. CONCLUSIONS -------- 1. Sinus rhythm. 2. This was a technically adequate study. 3. The left ventricular size is normal. 4. There is moderate concentric left ventricular hypertrophy. 5. Overall left ventricular systolic function is normal with, an EF between 55 - 60 %. 6. The right ventricle is mildly enlarged. 7. Normal LA size by volume 22+/-6 ml/m2. 8. The right atrium is normal in size. 9. There is mild aortic valve sclerosis. 10. There is moderate aortic stenosis present. 11. Peak/mean gradient across the Aortic Valve is 38.29mmHg / 22.65mmHg. 12. Mild mitral annular calcification present. 13. Mild tricuspid regurgitation present. 14. Right ventricular systolic pressure is normal at < 35 mmHg. 15. The pulmonic valve was not well visualized. 16. The aortic root size is normal. 17. Normal inferior vena cava with normal inspiratory collapse consistent with estimated right atrial pressure of 5 mmHg. 18. There is no pericardial effusion. [employer]: Radha Mccracken RDCS
[2019-01-21 11:29] LABS: Glucose,Whole Blood 68 mg/dL (75-99)
[2019-01-21 11:46] LABS: Glucose,Whole Blood 65 mg/dL (75-99)
[2019-01-21] MEDS ORDERED: Lubiprostone [Amitiza] 8 MCG PO SCH (12:00)
[2019-01-21 12:17] VITALS: BP 156/70
[2019-01-21 12:19] LABS: Glucose,Whole Blood 80 mg/dL (75-99)
--- NOTE | 2019-01-21 15:41 | P.DS ---
Providers Date of admission: 01/20/19 10:15 Expected date of discharge: 01/21/19 Attending physician: Yany Lopez Consults: 01/20/19 10:10 Consult Physician Urgent Consulting Provider: [facility] Consult Reason/Comments: Unstable angina Do you want consulting provider notified?: Yes Primary care physician: Peyman Martins [facility] Course: This is an 88-year-old male one of Dr. Martins with a previous medical history significant for hypertension and hypertensive cardiovascular disease, hyperlipidemia, history of TIA/CVA in the past, history of chronic diastolic heart failure, history of recurrent syncope post loop recorder amputation about 2 years ago with check every few weeks for possible atrial fibrillation, history of hard of hearing, patient developed to have a significant left-sided chest pain last night before he went to bed associated with increased shortness of breath when he felt his heart pounding at that time, patient went to bed and woke up in the morning he developed another episode of significant left-sided chest pain associated with shortness of breath, patient was brought into the emergency department at [facility] had a twelve- lead EKG did not show any evidence of acute significant abnormalities, cardiac enzymes were obtained, cardiology consultation and the patient was admitted to the hospital for evaluation. Patient was hospitalized recently about a few weeks back for episode of hypoglycemia. 01/21: Patient has been seen by cardiology and Norvasc has been added as well as atorvastatin. Patient denies having any chest pain and states that he is feeling better today. He was continued on a heparin drip. Echocardiogram reveals EF of 55-60% with moderate concentric left ventricular hypertrophy, mode rate aortic stenosis, mild tricuspid regurgitation. Patient has been cleared by cardiology for discharge home. Patient will be discharged home today in stable condition. Discharge diagnoses: 1. Chest pain possibly related to aortic stenosis. 2. Hypertension and hypertensive cardiovascular disease. 3. Hyperlipidemia. 4. Enlarged prostate. 5. History of CVA/TIA with possible paroxysmal atrial fibrillation post loop recorder implantation. 6. Chronic diastolic heart failure. 7. Vascular dementia. 8. Hard of hearing. Stable. 9. Hypoglycemia. Stable. 10. Recurrent Depression. Discharge plan: Home Impression and plan of care have been directed as dictated by the signing physician. Ara Villa nurse practitioner acting as scribe for signing physician. Patient Condition at Discharge: Good Plan - Discharge Summary Discharge Rx Participant: No New Discharge Prescriptions: New Atorvastatin [Lipitor] 40 mg PO HS #30 tab Nitroglycerin Sl Tabs [Nitrostat] 0.4 mg SUBLINGUAL Q5M PRN #25 tab PRN Reason: Chest Pain amLODIPine [Norvasc] 5 mg PO DAILY #30 tab Continue Furosemide [Lasix] 40 mg PO QAM Sertraline [Zoloft] 50 mg PO QAM Aspirin EC [Ecotrin Low Dose] 81 mg PO DAILY #30 tablet. Donepezil [Aricept] 10 mg PO HS ALPRAZolam [Xanax] 0.5 mg PO DAILY Sennosides [Senna] 8.6 mg PO BID Calcium Polycarbophil [Fibercon] 625 mg PO HS Tamsulosin [Flomax] 0.4 mg PO DAILY Spironolactone [Aldactone] 50 mg PO DAILY Acetaminophen [Tylenol Extra Strength] 500 mg PO Q6H PRN PRN Reason: Pain Polyethylene Glycol 3350 [Miralax] 17 gm PO HS predniSONE 10 mg PO HS Vitamin E (Dl,Tocopheryl Acet) [Vitamin E] 400 unit PO DAILY Acarbose [Precose] 25 mg PO TID Lubiprostone [Amitiza] 8 mcg PO DAILY@1200 Discharge Medication List Furosemide [Lasix] 40 mg PO QAM 02/28/15 [History] Sertraline [Zoloft] 50 mg PO QAM 03/01/17 [History] Aspirin EC [Ecotrin Low Dose] 81 mg PO DAILY #30 tablet. 03/03/17 [Rx] ALPRAZolam [Xanax] 0.5 mg PO DAILY 12/03/17 [History] Donepezil [Aricept] 10 mg PO HS 12/03/17 [History] Calcium Polycarbophil [Fibercon] 625 mg PO HS 03/04/18 [History] Sennosides [Senna] 8.6 mg PO BID 03/04/18 [History] Tamsulosin [Flomax] 0.4 mg PO DAILY 03/27/18 [History] Acetaminophen [Tylenol Extra Strength] 500 mg PO Q6H PRN 12/14/18 [History] Spironolactone [Aldactone] 50 mg PO DAILY 12/14/18 [History] Acarbose [Precose] 25 mg PO TID 01/20/19 [History] Lubiprostone [Amitiza] 8 mcg PO DAILY@1200 01/20/19 [History] Polyethylene Glycol 3350 [Miralax] 17 gm PO HS 01/20/19 [History] Vitamin E (Dl,Tocopheryl Acet) [Vitamin E] 400 unit PO DAILY 01/20/19 [History] predniSONE 10 mg PO HS 01/20/19 [History] Atorvastatin [Lipitor] 40 mg PO HS #30 tab 01/21/19 [Rx] Nitroglycerin Sl Tabs [Nitrostat] 0.4 mg SUBLINGUAL Q5M PRN #25 tab 01/21/19 [Rx] amLODIPine [Norvasc] 5 mg PO DAILY #30 tab 01/21/19 [Rx] Follow up Appointment(s)/Referral(s): Peyman Martins DO [Primary Care Provider] - 1 Week (Office closed, please call and make follow up appointment during normal business hours. ) Osmany Aguilar MD [STAFF PHYSICIAN] - 02/09/19 9:00 am (Please keep previous follow up appointment. ) Patient Instructions/Handouts: Chest Pain (DC) Discharge Disposition: HOME SELF-CARE
[2019-01-21 16:00] LABS: Glucose,Whole Blood 91 mg/dL (75-99)
[2019-01-21] MEDS: HEPARIN SOD,PORK IN 0.45% NACL 25,000 UNIT in 0.45% NACL 1 250ML.BAG IV SCH (17:48)
[2019-01-21] MEDS ORDERED: ATORVASTATIN 40 MG TAB PO SCH (21:00)
[2019-01-22] MEDS ORDERED: ASPIRIN 81 MG PO SCH (09:00)
== END 2019-01-21 19:10 | disposition home or self-care (01) ==
LOC: EC 08:09 → 3SCARD 10:15
PROVIDERS: ADMIT Internal Medicine; ATTEND Internal Medicine
DX: I11.0 Hypertensive heart disease with heart failure (principal); I50.32 Chronic diastolic (congestive) heart failure; G47.33 Obstructive sleep apnea (adult) (pediatric); K59.00 Constipation, unspecified; E78.5 Hyperlipidemia, unspecified; F01.50 Vascular dementia, unspecified severity, without behavioral disturbance, psychotic disturbance, mood disturbance, and anxiety; F33.9 Major depressive disorder, recurrent, unspecified; H91.90 Unspecified hearing loss, unspecified ear; I20.0 Unstable angina; I48.91 Unspecified atrial fibrillation; K21.9 Gastro-esophageal reflux disease without esophagitis; J45.909 Unspecified asthma, uncomplicated; I08.2 Rheumatic disorders of both aortic and tricuspid valves; I49.3 Ventricular premature depolarization; N40.1 Benign prostatic hyperplasia with lower urinary tract symptoms; R33.8 Other retention of urine; Z79.82 Long term (current) use of aspirin; Z79.51 Long term (current) use of inhaled steroids; Z88.2 Allergy status to sulfonamides; Z79.899 Other long term (current) drug therapy; Z87.01 Personal history of pneumonia (recurrent); Z86.73 Personal history of transient ischemic attack (TIA), and cerebral infarction without residual deficits; Z99.89 Dependence on other enabling machines and devices; Z87.440 Personal history of urinary (tract) infections; Z85.828 Personal history of other malignant neoplasm of skin; Z86.010 Personal history of colon polyps; Z83.3 Family history of diabetes mellitus; Z80.42 Family history of malignant neoplasm of prostate; Z80.0 Family history of malignant neoplasm of digestive organs
CPT/HCPCS: 96376 ×2; 96366 ×3; 96365; 99291; 36415; 94760; 94762; 93005; 93306; 80061; 80053; 80048; 83735; 84443; 84484; 85025 ×2; 85610; 85730 ×2; 71046; G0378 ×2; J1644 ×2; J7512

== ENCOUNTER 2019-02-25 16:11 | Emergency (ER) | payer MEDICARE, OTHER ==
--- NOTE | 2019-02-25 16:41 | ED ---
General Adult HPI - General Chief complaint: Fall Stated complaint: fall Time Seen by Provider: 02/25/19 16:18 Source: patient, RN notes reviewed Mode of arrival: EMS Limitations: no limitations - History of Present Illness Initial comments: Patient is a pleasant 88-year-old male presenting to the emergency Department with complaints of fall. Patient states he was going to the bathroom and he fell. Patient states he tripped. Patient denies any loss of consciousness. Patient does not take blood thinners. Patient states he did strike his head. N o confusion. Patient complains of discomfort of the back of his head as well as his upper back. No difficulty breathing. No chest pain. No abdominal discomfort. No weakness. Discomfort is mild at this time. - Related Data Home Medications Medication Instructions Recorded Confirmed Furosemide [Lasix] 40 mg PO QAM 02/28/15 02/25/19 Sertraline [Zoloft] 50 mg PO QAM 03/01/17 02/25/19 ALPRAZolam [Xanax] 0.5 mg PO DAILY 12/03/17 02/25/19 Donepezil [Aricept] 10 mg PO HS 12/03/17 02/25/19 Calcium Polycarbophil [Fibercon] 625 mg PO HS 03/04/18 02/25/19 Sennosides [Senna] 8.6 mg PO BID 03/04/18 02/25/19 Tamsulosin [Flomax] 0.4 mg PO DAILY 03/27/18 02/25/19 Acetaminophen [Tylenol Extra 500 mg PO Q6H PRN 12/14/18 02/25/19 Strength] Spironolactone [Aldactone] 50 mg PO DAILY 12/14/18 02/25/19 Acarbose [Precose] 25 mg PO TID 01/20/19 02/25/19 Lubiprostone [Amitiza] 8 mcg PO DAILY@1200 01/20/19 02/25/19 Polyethylene Glycol 3350 [Miralax] 17 gm PO HS 01/20/19 02/25/19 Vitamin E (Dl,Tocopheryl Acet) 400 unit PO DAILY 01/20/19 02/25/19 [Vitamin E] predniSONE 10 mg PO HS 01/20/19 02/25/19 Previous Rx's Medication Instructions Recorded Aspirin EC [Ecotrin Low Dose] 81 mg PO DAILY #30 tablet. 03/03/17 Atorvastatin [Lipitor] 40 mg PO HS #30 tab 01/21/19 Nitroglycerin Sl Tabs [Nitrostat] 0.4 mg SUBLINGUAL Q5M PRN #25 tab 01/21/19 amLODIPine [Norvasc] 5 mg PO DAILY #30 tab 01/21/19 Allergies Allergy/AdvReac Type Severity Reaction Status Date / Time sulfamethoxazole AdvReac BLOOD Verified 02/25/19 17:40 [From Bactrim] SUGAR DROPPED trimethoprim [From Bactrim] AdvReac BLOOD Verified 02/25/19 17:40 SUGAR DROPPED Review of Systems ROS Statement: Those systems with pertinent positive or pertinent negative responses have been documented in the HPI. ROS Other: All systems not noted in ROS Statement are negative. Constitutional: Denies: fever Eyes: Denies: eye pain ENT: Denies: ear pain Respiratory: Denies: cough, dyspnea Cardiovascular: Denies: chest pain Endocrine: Denies: fatigue Gastrointestinal: Denies: abdominal pain Genitourinary: Denies: urgency Musculoskeletal: Denies: back pain Skin: Denies: rash Neurological: Reports: as per HPI. Denies: weakness, confusion Past Medical History Past Medical History: Asthma, Cancer, Heart Failure, CVA/TIA, Dementia, GERD/Reflux, Hyperlipidemia, Hypertension, Pneumonia, Sleep Apnea/CPAP/BIPAP Additional Past Medical History / Comment(s): Pt recently admitted to [facility] on 12/15/18 with hypoglycemia. 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 Past Anesthesia/Blood Transfusion Reactions: No Reported Reaction Type of Cardiac Device: Loop Device Placement Date:: 03/26/15 Past Psychological History: Depression Smoking Status: Never smoker Past Alcohol Use History: None Reported Past Drug Use History: None Reported - Past Family History Son(s) Family Medical History: No Reported History (Patient has one son no major medical problems.) Father Family Medical History: Cancer Additional Family Medical History / Comment(s): colon cancer and at age 92 Mother Family Medical History: CVA/TIA, Dementia, Diabetes Mellitus Additional Family Medical History / Comment(s): from complications of CVA at age 76 Brother(s) Family Medical History: Prostate Disorder Additional Family Medical History / Comment(s): 4 brothers one had prostate cancer, 1 brother from colon cancer the other one is 90-year-old without medical problems Sister(s) Family Medical History: Cancer Additional Family Medical History / Comment(s): He has 4 sisters. No major medical problems. Daughter(s) Family Medical History: Cancer Additional Family Medical History / Comment(s): COLON General Exam Limitations: no limitations General appearance: alert, in no apparent distress Head exam: Present: other (Soft tissue swelling left posterior parietal) Eye exam: Present: normal appearance, PERRL, EOMI. Absent: nystagmus ENT exam: Present: normal oropharynx Neck exam: Present: normal inspection, full ROM. Absent: tenderness Respiratory exam: Present: normal lung sounds bilaterally Cardiovascular Exam: Present: regular rate, normal rhythm GI/Abdominal exam: Present: soft. Absent: tenderness Extremities exam: Present: full ROM, pedal edema (Patient states chronic). Absent: tenderness Back exam: Present: normal inspection, full ROM. Absent: tenderness, paraspinal tenderness, vertebral tenderness Neurological exam: Present: alert, CN II-XII intact. Absent: motor sensory deficit Expanded Neurological exam: Present: protecting the airway Patient oriented to: Present: person, place. Absent: time (Patient states this is normal for him) Cranial nerves: EOM's Intact: Normal Motor strength exam: RUE: 5, LUE: 5, RLE: 5, LLE: 5 Eye Response: (4) open spontaneously Motor Response: (6) obeys commands Verbal Response: (4) confused conversation Psychiatric exam: Present: normal affect, normal mood Skin exam: Present: normal color Course Vital Signs 02/25/19 16:17 Temperature 98.5 F Pulse Rate 53 L Respiratory 18 Rate Blood Pressure 129/64 O2 Sat by Pulse 95 Oximetry Medical Decision Making - Medical Decision Making Patient reevaluated and resting comfortably in bed. Patient and family updated on results and need for follow-up. Patient refuses Tylenol at this time. - Radiology Data Radiology results: report reviewed (Computed tomography scan of the brain shows atrophy and old infarct. No acute intercranial abnormality. No spine fracture.), image reviewed (Chest x-ray shows chronic changes, no acute process. Pelvis x-ray shows no dramatic process.) Disposition Clinical Impression: Fall, Head injury Disposition: HOME SELF-CARE Instructions (If sedation given, give patient instructions): Fall Prevention for Older Adults (ED), Head Injury (ED) Additional Instructions: Please follow-up with primary care physician in the next day or 2 for recheck. [id number] Tylenol as needed. Ice to affected area. Return for weakness, confusion, persistent vomiting, worsening or change in symptoms or other concerns. Is patient prescribed a controlled substance at d/c from ED?: No Referrals: Peyman Martins DO [Primary Care Provider] - 1-2 days Time of Disposition: 18:20
--- NOTE | 2019-02-25 17:46 | CT ---
EXAMINATION TYPE: CT brain adele mendez DATE OF EXAM: 02/25/2019 COMPARISON: CT brain 03/05/2018 HISTORY: Fall today. Left posterior head injury. CT DLP: 1384.8 mGycm Automated exposure control for dose reduction was used. TECHNIQUE: CT scan of the head and cervical spine are performed without contrast. FINDINGS: There is cerebral cortical atrophy. There is no mass effect nor midline shift. There is n o sign of intracranial hemorrhage. There is old right occipital lobe cortical infarct. The calvarium is intact. The cervical vertebra have normal alignment. There is spurring of the endplates. Posterior elements a re intact. The skull base is intact. There is no evidence of a fracture. IMPRESSION: Cerebral atrophy and old right occipital lobe cortical infarct. No change. No acute intracranial abno rmality. Chronic small vessel ischemia with lacunar infarcts both posterior frontal lobes. Spondylotic changes in the cervical spine. No fracture.
--- NOTE | 2019-02-25 17:54 | XR ---
EXAMINATION TYPE: XR chest 2V DATE OF EXAM: 02/25/2019 COMPARISON: 01/20/2019 HISTORY: Pain TECHNIQUE: Frontal and lateral views of the chest are obtained. FINDINGS: There is some mild linear density at the lung bases. There is no heart failure. Thoracic a alonso is atheromatous. Heart size is normal. IMPRESSION: Subsegmental atelectasis. Atheromatous aorta. No heart failure seen. No significant rosent[place] ge.
--- NOTE | 2019-02-25 17:58 | XR ---
EXAMINATION TYPE: XR pelvis AP view DATE OF EXAM: 02/25/2019 COMPARISON: NONE HISTORY: Pain TECHNIQUE: Single view FINDINGS: There is osteopenia. Pelvic ring appears intact. Sacroiliac joints appear intact. There is mild acetabular spurring. There is vascular calcification. IMPRESSION: No acute abnormality of the pelvis.
[2019-02-25 18:59] VITALS: BP 138/70; PULSE 78; RESP 16; TEMP 97.8
== END 2019-02-25 18:58 | disposition home or self-care (01) ==
LOC: EC 16:11
DX: S09.90XA Unspecified injury of head, initial encounter (principal); I50.9 Heart failure, unspecified; F03.90 Unspecified dementia, unspecified severity, without behavioral disturbance, psychotic disturbance, mood disturbance, and anxiety; K21.9 Gastro-esophageal reflux disease without esophagitis; E78.5 Hyperlipidemia, unspecified; I10 Essential (primary) hypertension; N40.0 Benign prostatic hyperplasia without lower urinary tract symptoms; G47.33 Obstructive sleep apnea (adult) (pediatric); F32.9 Major depressive disorder, single episode, unspecified; Z99.89 Dependence on other enabling machines and devices; Z85.828 Personal history of other malignant neoplasm of skin; Z86.73 Personal history of transient ischemic attack (TIA), and cerebral infarction without residual deficits; Z79.52 Long term (current) use of systemic steroids; Z79.899 Other long term (current) drug therapy; Z88.1 Allergy status to other antibiotic agents; Z88.2 Allergy status to sulfonamides; Z53.29 Procedure and treatment not carried out because of patient's decision for other reasons; W01.10XA Fall on same level from slipping, tripping and stumbling with subsequent striking against unspecified object, initial encounter; Y92.009 Unspecified place in unspecified non-institutional (private) residence as the place of occurrence of the external cause
CPT/HCPCS: 70450; 71046; 72125; 72170; 99284

== ENCOUNTER 2019-03-24 05:47 | Inpatient (IN) | payer MEDICARE, OTHER ==
--- NOTE | 2019-03-24 05:52 | ED ---
General Adult HPI - General Stated complaint: Urinary Retention Time Seen by Provider: 03/24/19 05:51 - History of Present Illness Initial comments: Cristofer is an 88-year-old gentleman with advanced dementia who is brought to the emergency department today by EMS for evaluation of urinary retention but also multiple concerns. Patient's reported EMS he had not urinated since approximately 7:30 last night and that he was uncomfortable. The sprocket her to call EMS. Daughter arrived at bedside and states that her father has been declining significantly over the past few months, he has very advanced dementia. She reports that he is home bound, nearly bedbound, edematous doesn't eat or drink well. Last week he was evaluated by visiting physicians, labs and urinalysis were obtained at that time. Daughter was contacted yesterday and advised that the urinalysis was negative however the urine culture did grow bacteria she is uncertain what. Daughter reports that at this time she feels the patient is no longer stable for remaining at home, he is too large for his to help move and at this point she feels he would benefit from possible enrollment in palliative care. - Related Data Home Medications Medication Instructions Recorded Confirmed Furosemide [Lasix] 40 mg PO QAM 02/28/15 02/25/19 Sertraline [Zoloft] 50 mg PO QAM 03/01/17 02/25/19 ALPRAZolam [Xanax] 0.5 mg PO DAILY 12/03/17 02/25/19 Donepezil [Aricept] 10 mg PO HS 12/03/17 02/25/19 Calcium Polycarbophil [Fibercon] 625 mg PO HS 03/04/18 02/25/19 Sennosides [Senna] 8.6 mg PO BID 03/04/18 02/25/19 Tamsulosin [Flomax] 0.4 mg PO DAILY 03/27/18 02/25/19 Acetaminophen [Tylenol Extra 500 mg PO Q6H PRN 12/14/18 02/25/19 Strength] Spironolactone [Aldactone] 50 mg PO DAILY 12/14/18 02/25/19 Acarbose [Precose] 25 mg PO TID 01/20/19 02/25/19 Lubiprostone [Amitiza] 8 mcg PO DAILY@1200 01/20/19 02/25/19 Polyethylene Glycol 3350 [Miralax] 17 gm PO HS 01/20/19 02/25/19 Vitamin E (Dl,Tocopheryl Acet) 400 unit PO DAILY 01/20/19 02/25/19 [Vitamin E] predniSONE 10 mg PO HS 01/20/19 02/25/19 Previous Rx's Medication Instructions Recorded Aspirin EC [Ecotrin Low Dose] 81 mg PO DAILY #30 tablet. 03/03/17 Atorvastatin [Lipitor] 40 mg PO HS #30 tab 01/21/19 Nitroglycerin Sl Tabs [Nitrostat] 0.4 mg SUBLINGUAL Q5M PRN #25 tab 01/21/19 amLODIPine [Norvasc] 5 mg PO DAILY #30 tab 01/21/19 Allergies Allergy/AdvReac Type Severity Reaction Status Date / Time sulfamethoxazole AdvReac BLOOD Verified 02/25/19 17:40 [From Bactrim] SUGAR DROPPED trimethoprim [From Bactrim] AdvReac BLOOD Verified 02/25/19 17:40 SUGAR DROPPED Review of Systems ROS Statement: Those systems with pertinent positive or pertinent negative responses have been documented in the HPI. ROS Other: All systems not noted in ROS Statement are negative. Limitations: ROS unobtainable due to patients medical condition (Dementia) Past Medical History Past Medical History: Asthma, Cancer, Heart Failure, CVA/TIA, Dementia, GERD/Reflux, Hyperlipidemia, Hypertension, Pneumonia, Sleep Apnea/CPAP/BIPAP Additional Past Medical History / Comment(s): Pt recently admitted to [facility] on 12/15/18 with hypoglycemia. 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 Past Anesthesia/Blood Transfusion Reactions: No Reported Reaction Type of Cardiac Device: Loop Device Placement Date:: 03/26/15 Past Psychological History: Depression Smoking Status: Never smoker Past Alcohol Use History: None Reported Past Drug Use History: None Reported - Past Family History Son(s) Family Medical History: No Reported History (Patient has one son no major med ical problems.) Father Family Medical History: Cancer Additional Family Medical History / Comment(s): colon cancer and at age 92 Mother Family Medical History: CVA/TIA, Dementia, Diabetes Mellitus Additional Family Medical History / Comment(s): from complications of CVA at age 76 Brother(s) Family Medical History: Prostate Disorder Additional Family Medical History / Comment(s): 4 brothers one had prostate cancer, 1 brother from colon cancer the other one is 90-year-old without medical problems Sister(s) Family Medical History: Cancer Additional Family Medical History / Comment(s): He has 4 sisters. No major medical problems. Daughter(s) Family Medical History: Cancer Additional Family Medical History / Comment(s): COLON General Exam - General Exam Comments Initial Comments: Physical Exam GENERAL: Chronically ill-appearing Minimally verbal HENT: Normocephalic, Atraumatic. Poor dentition, dry mucous membranes EYES: PERRL, EOMI PULMONARY: Crackles at the bilateral bases CARDIOVASCULAR: Regular rate and rhythm 3+ pitting edema bilateral lower extremities the mid thighs pitting edema in the bilateral upper extremities ABDOMEN: Soft and nontender with normal bowel sounds. SKIN: bruises on bilateral upper extremity secondary to patient being on steroids and having very thin skin : normal external genitalia NEUROLOGIC: oriented to person only, slurred speech, at baseline per patient MUSCULOSKELETAL: generalized atrophy and weakness PSYCHIATRIC: Unable to assess secondary to dementia Course Vital Signs 03/24/19 05:48 Temperature 98.2 F Pulse Rate 74 Respiratory 18 Rate Blood Pressure 144/76 O2 Sat by Pulse 93 L Oximetry EKG Findings - EKG Comments: EKG Findings:: EKG was obtained at 5:54 AM, rate is 71 rhythm is sinus is a leftward deviation there is normal intervals UT 206, QRS 86, QTC 445 there is no acute ST elevations or depressions or evidence of acute ischemia or infarction. Medical Decision Making - Medical Decision Making The patient was seen and evaluated history is obtained from EMS and the pa tod's daughter This is a 88-year-old woman with advanced dementia who is clinically been deteriorating This morning the patient's been unable to urinate, bladder scan is 240, he does have a urinary tract infection which was identified on urine culture outpatient Labs and antibiotics were ordered Daughter would like the patient to be admitted to the hospital for placement in a half-way. She would like discussion of palliative versus hospice given the patient's advanced dementia and clinical deterioration. Disposition Clinical Impression: Dementia, UTI (urinary tract infection) Disposition: ADMITTED IP TO THIS [facility] Condition: Serious Referrals: Peyman Martins DO [Primary Care Provider] - 1-2 days
[2019-03-24] MEDS ORDERED: NALOXONE 0.4 MG/ML 1 ML VIAL IV PRN (07:11)
[2019-03-24 07:17] LABS: Appearance,Urine Clear (Clear); Bilirubin,Urine Negative (Negative); Blood,Urine Negative (Negative); Color,Urine Yellow; Glucose,Urine (UA) Negative (Negative); Ketones,Urine Negative (Negative); Leukocyte Esterase,Urine Negative (Negative); Nitrite,Urine Negative (Negative); Protein,Urine Negative (Negative); Specific Gravity,Urine 1.025 (1.001-1.035); Urobilinogen,Urine <2.0 mg/dL (<2.0)
[2019-03-24 07:19] LABS: Basophils % (A) 0 %; Eosinophils # (A) 0.1 k/uL (0-0.7); Eosinophils % (A) 1 %; HCT 41.8 % (39.0-53.0); HGB 13.7 gm/dL (13.0-17.5); Lymphocytes # (A) 0.6 k/uL (1.0-4.8); Lymphocytes % (A) 4 %; MCH 28.9 pg (25.0-35.0); MCHC 32.8 g/dL (31.0-37.0); MCV 88.1 fL (80.0-100.0); Mean Platelet Volume 7.5; Monocytes # (A) 0.5 k/uL (0-1.0); Monocytes % (A) 4 %; Neutrophils # (A) 11.8 k/uL (1.3-7.7); Neutrophils % (A) 90 %; Platelet Count 226 k/uL (150-450); RBC 4.74 m/uL (4.30-5.90); RDW 15.4 % (11.5-15.5); WBC 13.1 k/uL (3.8-10.6)
[2019-03-24 07:25] LABS: INR 0.9 (<1.2); Partial Thromboplastin Time 27.6 sec (22.0-30.0); Prothrombin Time 9.8 sec (9.0-12.0)
[2019-03-24 07:33] LABS: Albumin 3.7 g/dL (3.5-5.0); Calcium 9.1 mg/dL (8.4-10.2); Potassium 4.6 mmol/L (3.5-5.1); Total Bilirubin 0.8 mg/dL (0.2-1.3); Total Protein 6.1 g/dL (6.3-8.2)
--- NOTE | 2019-03-24 07:48 | XR ---
EXAM: XR Chest, 1 View CLINICAL HISTORY: ITS.REASON XR Reason: Fever TECHNIQUE: Frontal view of the chest. COMPARISON: 02/25/19 FINDINGS: Lungs: Low lung volume accentuate lung markings. Slight prominence of the lung markings which may reflect mild congestion. Increasing streaky densities in the lung bases. Pleural space: Unremarkable. No pneumothorax. Heart: Cardiovascular silhouette likely mildly enlarged and accentuated by low lung volume. Mediastinum: Unremarkable. Bones/joints: Unremarkable. Vasculature: Calcified tortuous thoracic aorta is again seen. IMPRESSION: 1. Severe low lung volumes limit evaluation. 2. Slight worsening bibasilar atelectasis/airspace disease.
[2019-03-24 08:32] VITALS: BMI 30.4
[2019-03-24 12:23] LABS: Glucose,Whole Blood 95 mg/dL (75-99)
[2019-03-24] MEDS ORDERED: NITROGLYCERIN SL TABS 0.4 MG TAB SUBLINGUAL PRN (13:19)
[2019-03-24] MEDS: HYDROcodone/APAP 5-325MG 1 EACH TAB PO PRN ×2 (13:32→20:16)
[2019-03-24] MEDS ORDERED: MAG HYDROX/AL HYDROX/SIMETH 30 ML, HYOSCYAMINE ELIXIR 10 ML, CIMETIDINE HCL 300 MG, LID... PO ONE ×4 (16:00)
[2019-03-24] MEDS: ACARBOSE 25 MG TAB PO SCH (17:03)
[2019-03-24 17:15] LABS: Glucose,Whole Blood 120 mg/dL (75-99)
[2019-03-24] MEDS: POLYETHYLENE GLYCOL 3350 17 GM POWD.PACK PO SCH (20:02)
[2019-03-24] MEDS: DONEPEZIL 10 MG TAB PO SCH (20:02)
[2019-03-24] MEDS: predniSONE 10 MG TAB PO SCH (20:02)
[2019-03-24 20:17] LABS: Glucose,Whole Blood 123 mg/dL (75-99)
--- NOTE | 2019-03-24 22:23 | P.HPIM ---
History of Present Illness Chief Complaint: Problem with urination , placement Cristofer is an 88-year-old gentleman with advanced dementia who is brought to the emergency department today by EMS for above mentioned complains. Patient at the time of my examination was alert but not oriented secondary to advanced dementia. Most of the hisptry was taken with the help of the nurse and with the help of the ER notes. Apparently patient was c/o urinary retention at home. Also according to the daughter, the is not able to take care of him at home that he needs palcement in a [facility] facility. While on the floor, the patient was c/o chest pain in the epigastric area. He was a little sob and was coughing, no fever, no chills, no nausea, no vomiting, no diarrhea, no constipation, no nausea, no vomiting, no headache, no loss of vision, no blurry vision. CXR shows increasing infiltrate, other labs were at baseline. Vitals were stable otherwise Review of Systems ROS unobtainable: due to mental status All systems: negative Past Medical History Past Medical History: Asthma, Cancer, Heart Failure, CVA/TIA, Dementia, GERD/Reflux, Hyperlipidemia, Hypertension, Pneumonia, Sleep Apnea/CPAP/BIPAP Additional Past Medical History / Comment(s): Pt recently admitted to [facility] on 12/15/18 with hypoglycemia. 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 Past Anesthesia/Blood Transfusion Reactions: No Reported Reaction Type of Cardiac Device: Loop Device Placement Date:: 03/26/15 Past Psychological History: Depression Additional Psychological History / Comment(s): Pt resides with his spouse of 68yrs. He uses a walker to ambulate. He no longer drives, his daughter drives him to appts. He receives [employer] Whe[employer] and [employer] provides assistant printer floor covering to help shower. Pt is currently receiving [facility]. Smoking Status: Never smoker Past Alcohol Use History: None Reported Additional Past Alcohol Use History / Comment(s): Patient is a nonsmoker. He denies any alcohol use. Past Drug Use History: None Reported - Past Family History Son(s) Family Medical History: No Reported History Father Family Medical History: Cancer Additional Family Medical History / Comment(s): colon cancer and at age 92 Mother Family Medical History: CVA/TIA, Dementia, Diabetes Mellitus Additional Family Medical History / Comment(s): from complications of CVA at age 76 Brother(s) Family Medical History: Prostate Disorder Additional Family Medical History / Comment(s): 4 brothers one had prostate cancer, 1 brother from colon cancer the other one is 90-year-old without medical problems Sister(s) Family Medical History: Cancer Additional Family Medical History / Comment(s): He has 4 sisters. No major medical problems. Daughter(s) Family Medical History: Cancer Additional Family Medical History / Comment(s): COLON Medications and Allergies Home Medications Medication Instructions Recorded Confirmed Type RX: Furosemide [Lasix] 40 mg PO QAM 02/28/15 03/24/19 History RX: Sertraline [Zoloft] 50 mg PO QAM 03/01/17 03/24/19 History RX: Aspirin EC [Ecotrin Low Dose] 81 mg PO DAILY #30 tablet. 03/03/17 03/24/19 Rx RX: ALPRAZolam [Xanax] 0.25 mg PO TID@0930,1500,2100 12/03/17 03/24/19 History RX: Donepezil [Aricept] 10 mg PO HS 12/03/17 03/24/19 History RX: Sennosides [Senna] 8.6 mg PO W/LUNCH 03/04/18 03/24/19 History RX: Tamsulosin [Flomax] 0.4 mg PO DAILY 03/27/18 03/24/19 History RX: Spironolactone [Aldactone] 50 mg PO DAILY 12/14/18 03/24/19 History RX: Acarbose [Precose] 25 mg PO TID 01/20/19 03/24/19 History RX: Polyethylene Glycol 3350 17 gm PO BID 01/20/19 03/24/19 History [Miralax] RX: Vitamin E (Dl,Tocopheryl Acet) 400 unit PO DAILY 01/20/19 03/24/19 History [Vitamin E] RX: predniSONE 10 mg PO HS 01/20/19 03/24/19 History RX: Nitroglycerin Sl Tabs 0.4 mg SUBLINGUAL Q5M PRN #25 tab 01/21/19 03/24/19 Rx [Nitrostat] DULoxetine HCL [Cymbalta] 20 mg PO DAILY 03/24/19 03/24/19 History Naldemedine Tosylate [Symproic] 0.2 mg PO W/LUNCH 03/24/19 03/24/19 History RX: fentaNYL 12MCG/HR PATCH 1 patch TOPICAL Q72H 03/24/19 03/24/19 History [Duragesic 12MCG/HR] Allergies Allergy/AdvReac Type Severity Reaction Status Date / Time sulfamethoxazole AdvReac BLOOD Verified 03/24/19 07:56 [From Bactrim] SUGAR DROPPED trimethoprim [From Bactrim] AdvReac BLOOD Verified 03/24/19 07:56 SUGAR DROPPED Physical Exam Vitals: Vital Signs Temp Pulse Pulse Resp BP BP Pulse Ox 03/24/19 20:08 97.3 F L 64 18 131/62 96 03/24/19 17:38 16 03/24/19 17:08 97 03/24/19 15:39 16 03/24/19 14:34 97.8 F 62 16 136/91 97 03/24/19 10:20 16 03/24/19 08:25 98.5 F 61 18 132/67 98 03/24/19 07:32 98 F 55 L 17 129/71 96 03/24/19 05:48 98.2 F 74 18 144/76 93 L Intake and Output 03/24/19 03/24/19 03/24/19 06:59 14:59 22:59 Intake Total 250 Output Total 100 Balance 250 -100 Intake: Oral 250 Output: Post Void Residual 100 Other: # Voids 1 1 Weight 93.44 kg GENERAL: AX O times 1, seems to be in distress du to epigastric pain. HENT:Normocephalic, Atraumatic, dry mucous membranes EYES: PERRL, EOMI PULMONARY: Crackles at the bilateral bases CARDIOVASCULAR: Regular rate and rhythm, 3+ pitting edema bilateral lower extremities the mid thighs pitting edema in the bilateral upper extremities, tenderness in the epigastric area. ABDOMEN: Soft and nontender with normal bowel sounds. SKIN: bruises on bilateral upper extremity secondary to patient being on steroids and having very thin skin NEUROLOGIC: oriented to person only, slurred speech, at baseline per patient MUSCULOSKELETAL: generalized atrophy and weakness PSYCHIATRIC: Unable to assess secondary to dementia Results CBC & Chem 7: 03/24/19 06:03 03/24/19 06:03 Labs: Abnormal Lab Results - Last 24 Hours (Table) 03/24/19 03/24/19 03/24/19 Range/Units 06:03 06:03 17:13 WBC 13.1 H (3.8-10.6) k/uL Neutrophils # 11.8 H (1.3-7.7) k/uL Lymphocytes # 0.6 L (1.0-4.8) k/uL BUN 43 H (9-20) mg/dL Glucose 125 H (74-99) mg/dL POC Glucose (mg/dL) 120 H (75-99) mg/dL Total Protein 6.1 L (6.3-8.2) g/dL 03/24/19 Range/Units 20:16 WBC (3.8-10.6) k/uL Neutrophils # (1.3-7.7) k/uL Lymphocytes # (1.0-4.8) k/uL BUN (9-20) mg/dL Glucose (74-99) mg/dL POC Glucose (mg/dL) 123 H (75-99) mg/dL Total Protein (6.3-8.2) g/dL Microbiology - Last 24 Hours (Table) 03/24/19 06:03 Urine Culture - Preliminary Urine,Catheterized Thrombosis Risk Factor Assmnt - Choose All That Apply Any of the Below Risk Factors Present?: Yes Each Factor Represents 1 point: Obesity (BMI >25) Other Risk Factors: Yes Each Risk Factor Represents 3 Points: Age 75 years or older Thrombosis Risk Factor Assessment Total Risk Factor Score: 4 Thrombosis Risk Factor Assessment Level: Moderate Risk Assessment and Plan Assessment: - Urinary retnetion - Epigastric laura, 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 - H/O CHF with diastolic dysfunction - FAUZIA on CPAP - HTN - Hyperlipidemia - H/O CVA/TIA - H/O pneumonia Plan: - Will admit the patient to med/ surg with tele - The patient at the time of my examination was pain epigastric pain and with tender in the epigasteica area to touch. Will give him GI cocktail. Will also get a stat ekg and stat trops to r/o cardiac cause. - Will start him on antibiotics as he was sob ans cxr was showing increasing infiltrates. Will start rocephin and zithromax - Will aslo order for bladdr scan q6h and straight cath if residual more than 350 cc - Will consutl PT/OT and case managment for possible palcement. - DVT and GI ppx - Will order for labs in the AM - Expected lenght of stay is more than 2 modnights - Patient is DNR Time with Patient: Greater than 30
[2019-03-24] MEDS: DOXYCYCLINE 100 MG in SODIUM CHLORIDE 0.9% 100 ML IVPB SCH (23:29)
[2019-03-25] MEDS: HYDROcodone/APAP 5-325MG 1 EACH TAB PO PRN ×2 (02:56→11:36)
[2019-03-25 03:33] LABS: Anisocytosis Slight; HCT 39.9 % (39.0-53.0); HGB 13.1 gm/dL (13.0-17.5); MCH 30.2 pg (25.0-35.0); MCV 91.6 fL (80.0-100.0); Mean Platelet Volume 7.5; Platelet Count 177 k/uL (150-450); RBC 4.35 m/uL (4.30-5.90)
[2019-03-25 03:47] LABS: Calcium 8.7 mg/dL (8.4-10.2); Potassium 4.2 mmol/L (3.5-5.1)
[2019-03-25 07:01] LABS: Glucose,Whole Blood 130 mg/dL (75-99)
[2019-03-25] MEDS: TAMSULOSIN 0.4 MG CAP.ER.24H PO SCH (08:19)
[2019-03-25] MEDS: SENNOSIDES 8.6 MG TAB PO SCH (08:19)
[2019-03-25] MEDS: ASPIRIN 81 MG PO SCH (08:19)
[2019-03-25] MEDS: SERTRALINE 50 MG TAB PO SCH (08:20)
[2019-03-25] MEDS: POLYETHYLENE GLYCOL 3350 17 GM POWD.PACK PO SCH ×2 (08:20→20:24)
[2019-03-25] MEDS: FUROSEMIDE 40 MG TAB PO SCH (08:20)
[2019-03-25] MEDS: SPIRONOLACTONE 25 MG TAB PO SCH (08:20)
[2019-03-25] MEDS: ACARBOSE 25 MG TAB PO SCH ×3 (08:23→18:09)
[2019-03-25] MEDS: DULoxetine HCL 20 MG CAPSULE.DR PO SCH (08:23)
[2019-03-25] MEDS: VITAMIN E (DL,TOCOPHERYL ACET) 400 UNIT CAP PO SCH (08:23)
[2019-03-25] MEDS: DOXYCYCLINE 100 MG in SODIUM CHLORIDE 0.9% 100 ML IVPB SCH ×2 (11:37→23:24)
[2019-03-25 12:51] LABS: Glucose,Whole Blood 112 mg/dL (75-99)
--- NOTE | 2019-03-25 14:24 | P.PN ---
Bree Cleveland is an 88-year-old gentleman with advanced dementia who is brought to the emergency department today by EMS for above mentioned complains. Patient at the time of my examination was alert but not oriented secondary to advanced dementia. Most of the hisptry was taken with the help of the nurse and with the help of the ER notes. Apparently patient was c/o urinary retention at home. Also according to the daughter, the is not able to take care of him at home that he needs palcement in a retirement facility. While on the floor, the patient was c/o chest pain in the epigastric area. He was a little sob and was coughing, no fever, no chills, no nausea, no vomiting, no diarrhea, no constipation, no nausea, no vomiting, no headache, no loss of vision, no blurry vision. CXR shows increasing infiltrate, other labs were at baseline. Vitals were stable otherwise 03/25/2019 Today the patient says that he is not having any chest pain racing heart. He is a little short of breath but no cough, no abdominal pain, nausea and vomiting, or diarrhea. The daughter says that he is constipated and has not had a bowel movement. Objective - Vital Signs Vital signs: Vital Signs Temp 97.4 F L 03/25/19 04:30 Pulse 63 03/25/19 04:30 Resp 20 03/25/19 04:30 BP 142/68 03/25/19 04:30 Pulse Ox 93 L 03/25/19 04:30 Intake & Output 03/24/19 03/25/19 03/25/19 18:59 06:59 18:59 Intake Total 250 Output Total 100 525 Balance 150 -525 Weight 93.44 kg Intake: Oral 250 Output: Urine 525 Post Void Residual 100 Other: # Voids 1 4 - Exam GENERAL: AX O times 1, seems to be in distress du to epigastric pain. HENT:Normocephalic, Atraumatic, dry mucous membranes EYES: PERRL, EOMI PULMONARY: Crackles at the bilateral bases CARDIOVASCULAR: S1-S2 positive, patient is not having any pain in the chest. ABDOMEN: Soft and nontender with normal bowel sounds. SKIN: bruises on bilateral upper extremity secondary to patient being on steroids and having very thin skin NEUROLOGIC: oriented to person only, patient is moving all of his upper and lower extremities, gait not tested MUSCULOSKELETAL: generalized atrophy and weakness PSYCHIATRIC: Unable to assess secondary to dementia - Labs CBC & Chem 7: 03/25/19 03:22 03/25/19 03:22 Labs: Abnormal Lab Results - Last 24 Hours (Table) 03/24/19 03/24/19 03/25/19 Range/Units 17:13 20:16 03:22 WBC 13.0 H (3.8-10.6) k/uL RDW 16.0 H (11.5-15.5) % BUN (9-20) mg/dL Glucose (74-99) mg/dL POC Glucose (mg/dL) 120 H 123 H (75-99) mg/dL 03/25/19 03/25/19 03/25/19 Range/Units 03:22 06:49 12:31 WBC (3.8-10.6) k/uL RDW (11.5-15.5) % BUN 38 H (9-20) mg/dL Glucose 135 H (74-99) mg/dL POC Glucose (mg/dL) 130 H 112 H (75-99) mg/dL Microbiology - Last 24 Hours (Table) 03/24/19 06:03 Urine Culture - Final Urine,Catheterized Assessment and Plan Assessment: - Urinary retnetion - Epigastric laura, 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 - H/O CHF with diastolic dysfunction - FAUZIA on CPAP - HTN - Hyperlipidemia - H/O CVA/TIA - H/O pneumonia Plan: 03/24/2019 - Will admit the patient to med/ surg with tele - The patient at the time of my examination was pain epigastric pain and with tender in the epigasteica area to touch. Will give him GI cocktail. Will also get a stat ekg and stat trops to r/o cardiac cause. - Will start him on antibiotics as he was sob ans cxr was showing increasing infiltrates. Will start rocephin and zithromax - Will aslo order for bladdr scan q6h and straight cath if residual more than 350 cc - Will consutl PT/OT and case managment for possible palcement. - DVT and GI ppx - Will order for labs in the AM - Expected lenght of stay is more than 2 modnights - Patient is DNR 03/25/2019 - Had a discussion with the daughter in great detail. The daughter basically was the patient to be comfortable. They do not want any aggressive measures. I explained to them that the patient was having epigastric pain yesterday and it got better with the GI cocktail. I also asked her if the patient were to have any chest pain what and how aggressive does she want us to be. She explains that he is almost 89 years of age and she does not want any aggressive measures, she does not want any cardiac cath with respect to his age. She is okay with hi m getting treated for pneumonia with antibiotics and pain medications to control his pain and medications for his constipation. - We will therefore respect the wishes and make him DO NOT RESUSCITATE comfort - .Also verbalized that he needs to be placed as his is not able to take care of him anymore at home and his is 85 years of age - We'll continue antibiotics for now - Discussed with the welfare case worker who is looking into placement for him - We'll follow up on the patient
[2019-03-25 17:22] LABS: Glucose,Whole Blood 90 mg/dL (75-99)
[2019-03-25 20:15] LABS: Glucose,Whole Blood 161 mg/dL (75-99)
[2019-03-25] MEDS: predniSONE 10 MG TAB PO SCH (20:23)
[2019-03-25] MEDS: DONEPEZIL 10 MG TAB PO SCH (20:23)
[2019-03-26 07:12] LABS: Glucose,Whole Blood 131 mg/dL (75-99)
[2019-03-26] MEDS: VITAMIN E (DL,TOCOPHERYL ACET) 400 UNIT CAP PO SCH (10:54)
[2019-03-26] MEDS: ACARBOSE 25 MG TAB PO SCH ×3 (10:54→17:00)
[2019-03-26] MEDS: POLYETHYLENE GLYCOL 3350 17 GM POWD.PACK PO SCH ×2 (10:54→21:17)
[2019-03-26] MEDS: DOXYCYCLINE 100 MG in SODIUM CHLORIDE 0.9% 100 ML IVPB SCH (10:54)
[2019-03-26] MEDS: SPIRONOLACTONE 25 MG TAB PO SCH (10:55)
[2019-03-26] MEDS: SERTRALINE 50 MG TAB PO SCH (10:55)
[2019-03-26] MEDS: FUROSEMIDE 40 MG TAB PO SCH (10:55)
[2019-03-26] MEDS: TAMSULOSIN 0.4 MG CAP.ER.24H PO SCH (10:55)
[2019-03-26] MEDS: ASPIRIN 81 MG PO SCH (10:55)
[2019-03-26] MEDS: SENNOSIDES 8.6 MG TAB PO SCH (10:55)
[2019-03-26] MEDS: DULoxetine HCL 20 MG CAPSULE.DR PO SCH (10:55)
[2019-03-26 11:40] LABS: Glucose,Whole Blood 132 mg/dL (75-99)
[2019-03-26] MEDS: HYDROcodone/APAP 5-325MG 1 EACH TAB PO PRN ×2 (17:00→22:23)
--- NOTE | 2019-03-26 18:30 | P.PN ---
Bree Cleveland is an 88-year-old gentleman with advanced dementia who is brought to the emergency department today by EMS for above mentioned complains. Patient at the time of my examination was alert but not oriented secondary to advanced dementia. Most of the hisptry was taken with the help of the nurse and with the help of the ER notes. Apparently patient was c/o urinary retention at home. Also according to the daughter, the is not able to take care of him at home that he needs palcement in a [facility] facility. While on the floor, the patient was c/o chest pain in the epigastric area. He was a little sob and was coughing, no fever, no chills, no nausea, no vomiting, no diarrhea, no constipation, no nausea, no vomiting, no headache, no loss of vision, no blurry vision. CXR shows increasing infiltrate, other labs were at baseline. Vitals were stable otherwise 03/25/2019 Today the patient says that he is not having any chest pain racing heart. He is a little short of breath but no cough, no abdominal pain, nausea and vomiting, or diarrhea. The daughter says that he is constipated and has not had a bowel movement. 03/26/2019 Pt says he is doing better today SOB improving No chest pain, no racing heart Objective - Vital Signs Vital signs: Vital Signs Temp 97.2 F L 03/26/19 14:00 Pulse 76 03/26/19 14:00 Resp 16 03/26/19 14:00 BP 104/79 03/26/19 14:00 Pulse Ox 97 03/26/19 14:00 Intake & Output 03/25/19 03/26/19 03/26/19 18:59 06:59 18:59 Intake Total 100 440 Output Total 425 Balance 100 -425 440 Weight 93.44 kg Intake: Intake, IV Titration 100 Amount Doxycycline 100 mg In 100 Sodium Chloride 0.9% 100 ml @ 100 mls/hr IVPB Q12H [facility] Rx#:[id number] Oral 440 Output: Urine 425 Other: # Voids 1 3 2 # Bowel Movements 1 0 - Exam GENERAL: AX O times 1, seems to be in distress du to epigastric pain. HENT:Normocephalic, Atraumatic, dry mucous membranes EYES: PERRL, EOMI PULMONARY: Crackles at the bilateral bases CARDIOVASCULAR: S1-S2 positive, patient is not having any pain in the chest. ABDOMEN: Soft and nontender with normal bowel sounds. SKIN: bruises on bilateral upper extremity secondary to patient being on steroids and having very thin skin NEUROLOGIC: oriented to person only, patient is moving all of his upper and lower extremities, gait not tested MUSCULOSKELETAL: generalized atrophy and weakness PSYCHIATRIC: Unable to assess secondary to dementia - Labs CBC & Chem 7: 03/25/19 03:22 03/25/19 03:22 Labs: Abnormal Lab Results - Last 24 Hours (Table) 03/25/19 03/26/19 03/26/19 Range/Units 20:14 07:08 11:38 POC Glucose (mg/dL) 161 H 131 H 132 H (75-99) mg/dL Assessment and Plan Assessment: - Urinary retnetion - Epigastric laura, 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 - H/O CHF with diastolic dysfunction - FAUZIA on CPAP - HTN - Hyperlipidemia - H/O CVA/TIA - H/O pneumonia Plan: 03/24/2019 - Will admit the patient to med/ surg with tele - The patient at the time of my examination was pain epigastric pain and with tender in the epigastric area to touch. Will give him GI cocktail. Will also get a stat ekg and stat trops to r/o cardiac cause. - Will start him on antibiotics as he was sob and cxr was showing increasing infiltrates. Will start rocephin and zithromax - Will also order for bladder scan q6h and straight cath if residual more than 350 cc - Will consult PT/OT and case management for possible placement. - DVT and GI ppx - Will order for labs in the AM - Expected length of stay is more than 2 midnights - Patient is DNR 03/25/2019 - Had a discussion with the daughter in great detail. The daughter basically was the patient to be comfortable. They do not want any aggressive measures. I explained to them that the patient was having epigastric pain yesterday and it got better with the GI cocktail. I also asked her if the patient were to have any chest pain what and how aggressive does she want us to be. She explains that he is almost 89 years of age and she does not want any aggressive measures, she does not want any cardiac cath with respect to his age. She is okay with him getting treated for pneumonia with antibiotics and pain medications to control his pain and medications for his constipation. - We will therefore respect the wishes and make him DO NOT RESUSCITATE comfort - .Also verbalized that he needs to be placed as his is not able to take care of him anymore at home and his is 85 years of age - We'll continue antibiotics for now - Discussed with the case resolution specialist who is looking into placement for him - We'll follow up on the patient 03/26/2019 - Will continue antibiotics - Will continue current meds - Anticipate placement in a fpc
[2019-03-26] MEDS: DONEPEZIL 10 MG TAB PO SCH (21:16)
[2019-03-26] MEDS: predniSONE 10 MG TAB PO SCH (21:16)
[2019-03-27] MEDS: DOXYCYCLINE 100 MG in SODIUM CHLORIDE 0.9% 100 ML IVPB SCH ×2 (01:30→11:17)
[2019-03-27 02:56] LABS: Glucose,Whole Blood 133 mg/dL (75-99)
[2019-03-27] MEDS: SPIRONOLACTONE 25 MG TAB PO SCH (07:29)
[2019-03-27] MEDS: SERTRALINE 50 MG TAB PO SCH (07:30)
[2019-03-27] MEDS: POLYETHYLENE GLYCOL 3350 17 GM POWD.PACK PO SCH (07:30)
[2019-03-27] MEDS: FUROSEMIDE 40 MG TAB PO SCH (07:30)
[2019-03-27] MEDS: TAMSULOSIN 0.4 MG CAP.ER.24H PO SCH (07:30)
[2019-03-27] MEDS: ASPIRIN 81 MG PO SCH (07:30)
[2019-03-27] MEDS: VITAMIN E (DL,TOCOPHERYL ACET) 400 UNIT CAP PO SCH (07:33)
[2019-03-27] MEDS: ACARBOSE 25 MG TAB PO SCH ×3 (07:33→17:48)
[2019-03-27] MEDS: DULoxetine HCL 20 MG CAPSULE.DR PO SCH (07:33)
[2019-03-27 07:38] LABS: Glucose,Whole Blood 105 mg/dL (75-99)
[2019-03-27 08:23] VITALS: RESP 16
[2019-03-27 11:40] LABS: Glucose,Whole Blood 106 mg/dL (75-99)
[2019-03-27] MEDS: SENNOSIDES 8.6 MG TAB PO SCH (12:25)
[2019-03-27 14:26] VITALS: BP 127/80; PULSE 84; TEMP 97.9
--- NOTE | 2019-03-27 14:45 | P.DS ---
Providers Date of admission: 03/24/19 10:22 Expected date of discharge: 03/27/19 Attending physician: Saloni Vela Primary care physician: Peyman [facility] Course: Cristofer is an 88-year-old gentleman with advanced dementia who is brought to the emergency department today by EMS for above mentioned complains. Patient at the time of my examination was alert but not oriented secondary to advanced dementia. Most of the hisptry was taken with the help of the nurse and with the help of the ER notes. Apparently patient was c/o urinary retention at home. Also according to the daughter, the is not able to take care of him at home that he needs palcement in a [facility] facility. While on the floor, the patient was c/o chest pain in the epigastric area. He was a little sob and was coughing, no fever, no chills, no nausea, no vomiting, no diarrhea, no constipation, no nausea, no vomiting, no headache, no loss of vision, no blurry vision. CXR shows increasing infiltrate, other labs were at baseline. Vitals were stable otherwise Had an extensive discussion with the daughter at bedside along with the nurse. Daughter wants the patient to be comfortable. She did not want any aggressive measures. I spent the patient was having epigastric pain which got better with GI cocktail. I also asked her if in case of heart attack or any acute issues, how aggressive does she want us to be in terms of treating the patient. The patient's daughter does not want him to have any heart cath or any interventions. She only wanted him to be comfortable and be managed medically. Patient slowly started to improve. The next morning he was back to his baseline he was answering questions, and cognitively. He did not complain of any chest pain or racing heart no cough no shortness of breath no abdominal pain, unknown nausea and vomiting no diarrhea constipation. On 03/27/2013 GENERAL: AX O times 1, patient seems to be doing okay back to his baseline. HENT:Normocephalic, Atraumatic, dry mucous membranes EYES: PERRL, EOMI PULMONARY: Crackles at the bilateral bases CARDIOVASCULAR: Regular rate and rhythm, 3+ pitting edema bilateral lower extremities the mid thighs pitting edema in the bilateral upper extremities, patient is no more tender in the epigastric area. ABDOMEN: Soft and nontender with normal bowel sounds. SKIN: bruises on bilateral upper extremity secondary to patient being on steroids and having very thin skin NEUROLOGIC: oriented to person only, slurred speech, at baseline per patient MUSCULOSKELETAL: generalized atrophy and weakness. PSYCHIATRIC: Unable to assess secondary to dementia Discussed the case extensively with her daughter with the nurse at the bedside. Daughter wants no aggressive measures for the patient and wanted him to be comfortable. Daughter wanted the patient to go to extended care facility as they were no longer able to take care of him at home because of his dementia. Daughter wants the patient to be DO NOT RESUSCITATE comfort. She is okay with him getting antibiotics but nothing more than that. She wanted me to check the liver function tests which were normal the patient was not having any abdominal pain or any chest pain whatsoever at the time examination. The patient will does be discharged to extended care facility when bed available Patient Condition at Discharge: Stable Plan - Discharge Summary New Discharge Prescriptions: New Doxycycline [Vibramycin] 100 mg PO BID 3 Days #12 capsule Continue Furosemide [Lasix] 40 mg PO QAM Sertraline [Zoloft] 50 mg PO QAM Aspirin EC [Ecotrin Low Dose] 81 mg PO DAILY #30 tablet. Donepezil [Aricept] 10 mg PO HS ALPRAZolam [Xanax] 0.25 mg PO TID@0930,1500,2100 Sennosides [Senna] 8.6 mg PO W/LUNCH Tamsulosin [Flomax] 0.4 mg PO DAILY Spironolactone [Aldactone] 50 mg PO DAILY Polyethylene Glycol 3350 [Miralax] 17 gm PO BID predniSONE 10 mg PO HS Vitamin E (Dl,Tocopheryl Acet) [Vitamin E] 400 unit PO DAILY Acarbose [Precose] 25 mg PO TID Nitroglycerin Sl Tabs [Nitrostat] 0.4 mg SUBLINGUAL Q5M PRN #25 tab PRN Reason: Chest Pain Naldemedine Tosylate [Symproic] 0.2 mg PO W/LUNCH DULoxetine HCL [Cymbalta] 20 mg PO DAILY fentaNYL 12MCG/HR PATCH [Duragesic 12MCG/HR] 1 patch TOPICAL Q72H Discharge Medication List Furosemide [Lasix] 40 mg PO QAM 02/28/15 [History] Sertraline [Zoloft] 50 mg PO QAM 03/01/17 [History] Aspirin EC [Ecotrin Low Dose] 81 mg PO DAILY #30 tablet. 03/03/17 [Rx] ALPRAZolam [Xanax] 0.25 mg PO TID@0930,1500,2100 12/03/17 [History] Donepezil [Aricept] 10 mg PO HS 12/03/17 [History] Sennosides [Senna] 8.6 mg PO W/LUNCH 03/04/18 [History] Tamsulosin [Flomax] 0.4 mg PO DAILY 03/27/18 [History] Spironolactone [Aldactone] 50 mg PO DAILY 12/14/18 [History] Acarbose [Precose] 25 mg PO TID 01/20/19 [History] Polyethylene Glycol 3350 [Miralax] 17 gm PO BID 01/20/19 [History] Vitamin E (Dl,Tocopheryl Acet) [Vitamin E] 400 unit PO DAILY 01/20/19 [History] predniSONE 10 mg PO HS 01/20/19 [History] Nitroglycerin Sl Tabs [Nitrostat] 0.4 mg SUBLINGUAL Q5M PRN #25 tab 01/21/19 [Rx] DULoxetine HCL [Cymbalta] 20 mg PO DAILY 03/24/19 [History] Naldemedine Tosylate [Symproic] 0.2 mg PO W/LUNCH 03/24/19 [History] fentaNYL 12MCG/HR PATCH [Duragesic 12MCG/HR] 1 patch TOPICAL Q72H 03/24/19 [History] Doxycycline [Vibramycin] 100 mg PO BID 3 Days #12 capsule 03/27/19 [Rx] Follow up Appointment(s)/Referral(s): Peyman Martins DO [Primary Care Provider] - 1-2 days Activity/Diet/Wound Care/Special Instructions: If you notice any increased shortness of breath or cough any chest pain racing heart, any pain in the belly, any nausea vomiting or diarrhea constipation, any mental status changes, please call 911 and come to the ER. Discharge Disposition: TRANSFER TO [facility]/F
[2019-03-27 16:58] LABS: Glucose,Whole Blood 105 mg/dL (75-99)
== END 2019-03-27 18:07 | DRG 726 ==
LOC: EC 05:47 → 4MS4W 07:11 → OBSVTOIN 10:22 → 4SSUR 03-26 18:48
PROVIDERS: ADMIT Hospitalist; ATTEND Hospitalist
DX: N40.1 Benign prostatic hyperplasia with lower urinary tract symptoms (principal); I50.32 Chronic diastolic (congestive) heart failure; R33.8 Other retention of urine; E78.5 Hyperlipidemia, unspecified; F03.90 Unspecified dementia, unspecified severity, without behavioral disturbance, psychotic disturbance, mood disturbance, and anxiety; F32.9 Major depressive disorder, single episode, unspecified; G47.33 Obstructive sleep apnea (adult) (pediatric); I11.0 Hypertensive heart disease with heart failure; Z87.01 Personal history of pneumonia (recurrent); J45.909 Unspecified asthma, uncomplicated; K21.9 Gastro-esophageal reflux disease without esophagitis; K59.00 Constipation, unspecified; Z66 Do not resuscitate; Z79.82 Long term (current) use of aspirin; Z79.899 Other long term (current) drug therapy; Z79.891 Long term (current) use of opiate analgesic; Z79.52 Long term (current) use of systemic steroids; Z80.0 Family history of malignant neoplasm of digestive organs; Z80.42 Family history of malignant neoplasm of prostate; Z83.3 Family history of diabetes mellitus; Z85.828 Personal history of other malignant neoplasm of skin; Z86.73 Personal history of transient ischemic attack (TIA), and cerebral infarction without residual deficits; Z82.3 Family history of stroke; Z87.440 Personal history of urinary (tract) infections; Z86.010 Personal history of colon polyps; Z88.2 Allergy status to sulfonamides; Z88.8 Allergy status to other drugs, medicaments and biological substances; Z99.89 Dependence on other enabling machines and devices; K29.70 Gastritis, unspecified, without bleeding
CPT/HCPCS: 36415; 51701; 51798; 71045; 80048; 80053; 81003; 83605; 84443; 84484; 85025; 85027; 85610; 85730; 87086; 93005; 96365; 99285